=== PATIENT | male | born 1950 | race Caucasian/White ===

== ENCOUNTER → 2022-03-18 13:17 | Outpatient (BNVA) | payer MEDICARE, OTHER, SELFPAY | PROVIDERS: PCP Nurse Practitioner Family; Visit Provider Student in an Organized Health Care Education/Training Program | DX: Z13.89 Encounter for screening for other disorder (principal) ==

== ENCOUNTER → 2022-06-16 12:34 | Outpatient (BNVA) | payer MEDICARE, OTHER, SELFPAY | PROVIDERS: PCP Nurse Practitioner Family; Visit Provider Student in an Organized Health Care Education/Training Program | DX: M35.3 Polymyalgia rheumatica (principal); M85.80 Other specified disorders of bone density and structure, unspecified site; R31.9 Hematuria, unspecified; Z79.52 Long term (current) use of systemic steroids; Z79.83 Long term (current) use of bisphosphonates | CPT/HCPCS: 99202 ==

== ENCOUNTER 2022-09-23 09:53 | Outpatient (AMB) | payer MEDICARE, OTHER, SELFPAY ==
--- NOTE | 2022-09-23 10:00 | MHC.OFFVIS ---
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 Last visit patient was taking 6 mg of prednisone daily he tapered it down to 5 mg daily, tapering down by 1 mg per month. Beginning of July patient started to have tingling sensation in his fingers at night. He contacted the office and Dr. Stovall asked him to start taking 3 mg at night in addition to his 5 mg morning dose with resolution of his symptoms. Today patient has no complaints. He has not been referred to a urologist. Has not had any more instances of hematuria. Initial history: This is a 72-year-old male with PMR who presents as a new patient. His previous neuro psych sales specialist left the practice. Please see Dr. Ferro's notes below. Patient states that he is doing well overall. He has been having some pain and stiffness of his hands and wrists over the last 2-3 months. He generalized morning stiffness of his body lasting approximately 3 hours. He also feels that he has injured his knee recently but he is able to walk normally and his knees do not give out on him. Knees do not buckle. He states that he has had bilateral meniscal repair in his 40s. Patient is quite active Over the last few months he had rare episodes of terminal hematuria without burning with urination. He mentions that when he was evaluated by Dr. Tovar in March 2021 for knee pain he was told he might have RA. Per Dr. Maroun:? In May patient started to have flu-like symptoms, extreme fatigue for 2 weeks then he started having pain and stiffness in hips and shoulders.? No joint swelling.? He was initially treated with doxycycline which did not help.? He was later diagnosed with PMR and was started on prednisone 20 mg daily and he felt improvement right away.?? The took 20 mg for 10 days and it was decreased to 15 mg for 10 days and then 12.5 mg.? He is on this dose for 18 days.? He is also on Tylenol.?? No headaches, no jaw pain or vision change.?? He still has aches and pains in wrists, shoulders on arms.? Morning stiffness last few hours. No cancer in the family, no lupus.? Two cousins had psoriasis. [facility] Medical History Allergic rhinitis Essential hypertension Gallstones Impaired fasting glucose Mixed hyperlipidemia Osteopenia PMR (polymyalgia rheumatica) Skin hypopigmentation Surgical History H/O inguinal hernia repair History of arthroscopy of both knees Hx of appendectomy S/P cholecystectomy Family History Mother Myocardial infarct Scarlet fever Father Dementia Social History Household Members: Spouse Alcohol intake: current Alcohol intake frequency: a few times a week Alcohol type: beer Patient Tobacco Use Status: Never used Tobacco Current occupational status: retired and other Current occupation: [employer] Review of Systems Denies hematuria Musc Denies arthralgias, Denies joint swelling, Denies stiffness and Denies tingling Neuro Denies tingling Physical Exam Vital Signs: Last Vital Signs Temp 97.9 F 09/23/22 10:01 Pulse 77 09/23/22 10:01 Resp 16 09/23/22 10:01 BP 120/78 09/23/22 10:01 Pulse Ox 97 09/23/22 10:01 Oxygen Delivery Method Room Air 09/23/22 10:01 BMI result Body Mass Index 31.3 Const General: cooperative, healthy appearing and comfortable Nutritional Appearance: obese Orientation/consciousness: patient oriented x3 Limitations: no limitations HEENT Head: Yes normocephalic and Yes atraumatic Mouth: moist mucous membranes Resp Effort & Inspection: normal respiratory effort and able to speak in complete sentences Auscultation: clear to auscultation bilaterally Cardio Rate: regular rate Rhythm: regular rhythm GI Inspection: No distended Palpation (GI): Soft to palpation and nontender Neuro General: patient oriented x3 Extrem Other: Normal range of motion of both shoulders Deformity of right middle finger related to an injury years ago No swollen or tender wrists or pain with range of motion Negative MCP squeeze test bilaterally 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 No knee swelling or tenderness negative Rambo's test bilaterally Results Reviewed Results Reviewed: DEXA 10/2021? Lumbar spine T-score 2.1 Femoral neck T-score-1.4? Total hip T-score-1.3? 1/3 radius T-score minus 1.4? FRAX 9.7% for major osteoporotic fracture and 2.9% for hip fracture Labs 06/2021, Lyme/RF/CCP negative? ESR 42? CRP 77 (i think normal is <9) Free T4 normal Labs 09/2021? Immunofixation no monoclonal proteins detected SPEP showed increase in alpha 1 globulin MISAEL screen negative? CPK 60 (35-232) CMP unremarkable and? CRP 13.4 (I think normal is <9) ESR 12 WBC 15.88 CBC unremarkable otherwise Assessment & Plan Assessment & Plan (1) PMR (polymyalgia rheumatica): Comment: dx 06/2021 (fatigue, stiffness of shoulders and hips, high inflammatory markers) Prednisone started 06/2021. Started on 20 mg then reduced to 15 mg after 2 weeks. Code(s): M35.3 - Polymyalgia rheumatica Plan: This is a 72-year-old male with PMR who presents for follow-up. Patient's PMR flared when he reduced his prednisone to 5 mg daily, this resolved when he started a nightly dose of 3 mg. He is currently doing well on 8 mg of prednisone. Will reduce prednisone by 1 mg per month. In September start taking prednisone 7 mg daily 5 mg in the morning and 2 mg at night then reduce by 1 mg every month. Advised patient to call the office if he starts feeling that he has a flare as I would like to get blood work done when in a flare. Labs before next visit in 3 months (2) Hematuria: Code(s): R31.9 - Hematuria, unspecified Qualifiers: Hematuria type: gross Qualified Code(s): R31.0 - Gross hematuria Plan: Few episodes of terminal hematuria over the last few months. This seems to have self-resolved. I again urged patient to request referral to a urologist from his PCP. Patient states that he will do so. I also offered a referral to a urologist within the [facility] system and patient prefers to find a urologist next to home (3) History of ongoing treatment with alendronate: Code(s): Z79.83 - custodial (current) use of bisphosphonates Plan: DEXA 10/2021? Lumbar spine T-score 2.1 Femoral neck T-score-1.4? Total hip T-score-1.3? 1/3 radius T-score minus 1.4? FRAX 9.7% for major osteoporotic fracture and 2.9% for hip fracture Can stop Fosamax treatment now. Repeat DEXA next year. Plan I spent 27 minutes reviewing patient's chart, evaluating patient, ordering diagnostic workup, counseling patient and documenting in the chart Medications: New prednisone 5 mg PO DAILY 30 tabs 0RF Coding Level of Care Code Est Pt Level 4 (59369) Diagnoses PMR (polymyalgia rheumatica) M35.3 Hematuria R31.0 Hematuria type: gross History of ongoing treatment with alendronate Z79.83
[2022-09-23 10:01] VITALS: BP 120/78; PULSE 77; RESP 16; TEMP 36.6; O2SAT 97; BMI 31.3
== END 2022-09-23 10:52 | disposition home or self-care (01) ==
PROVIDERS: PCP Nurse Practitioner Family; Visit Provider Student in an Organized Health Care Education/Training Program
DX: M35.3 Polymyalgia rheumatica (principal); R31.0 Gross hematuria; Z79.83 Long term (current) use of bisphosphonates
CPT/HCPCS: 99214

== ENCOUNTER → 2022-09-23 09:53 | Outpatient (BNVA) | payer MEDICARE, OTHER, SELFPAY | PROVIDERS: PCP Nurse Practitioner Family; Visit Provider Student in an Organized Health Care Education/Training Program | DX: M35.3 Polymyalgia rheumatica (principal); R31.0 Gross hematuria; Z79.83 Long term (current) use of bisphosphonates | CPT/HCPCS: 99212 ==

== ENCOUNTER 2022-12-10 10:09 | Outpatient (AMB) | payer MEDICARE, OTHER, SELFPAY ==
--- NOTE | 2022-12-10 10:30 | MHC.OFFVIS ---
Intake Vital Signs 12/10/22 10:31 Height 5 ft 5 in Weight 185 lb 10.067 oz BMI 30.9 BP 122/80 Blood Pressure Location Rt brachial Position Sitting Pulse 82 Pulse Source Pulse Oximeter Temp 97.3 F Temp Source Skin Pulse Oximetry (%) 96 Intake Visit Reasons: PMR Intake Note: Pt presents today for PMR follow up and test results. Fosamax discontinued. Currently on 5mg of prednisone. Started on Tamsulosin by urologist. 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 Currently on 5 mg of prednisone, 3 mg in a.m. and 2 mg in the p.m.. Reducing by 1 mg a month. Doing well overall with no joint pain swelling or stiffness. States that about a month ago he was splitting wood, he has not split wood for long time and he felt electric shock-like sensation in the radial area of his right wrist. Since then he has been getting intermittent electric shock-like sensation in this area, usually in the morning when he pushes of with his right hand. Rarely bothers him. He was evaluated by urologist for his hematuria and was started on tamsulosin with improved urination, a CT scan was also ordered, done yesterday. Results pending Initial history: This is a 72-year-old male with PMR who presents as a new patient. 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 Please see Dr. Ferro's notes below. Patient states that he is doing well overall. He has been having some pain and stiffness of his hands and wrists over the last 2-3 months. He generalized morning stiffness of his body lasting approximately 3 hours. He also feels that he has injured his knee recently but he is able to walk normally and his knees do not give out on him. Knees do not buckle. He states that he has had bilateral meniscal repair in his 40s. Patient is quite active Over the last few months he had rare episodes of terminal hematuria without burning with urination. He mentions that when he was evaluated by Dr. Tovar in March 2021 for knee pain he was told he might have RA. Per Dr. Ferro:? In May patient started to have flu-like symptoms, extreme fatigue for 2 weeks then he started having pain and stiffness in hips and shoulders.? No joint swelling.? He was initially treated with doxycycline which did not help.? He was later diagnosed with PMR and was started on prednisone 20 mg daily and he felt improvement right away.?? The took 20 mg for 10 days and it was decreased to 15 mg for 10 days and then 12.5 mg.? He is on this dose for 18 days.? He is also on Tylenol.?? No headaches, no jaw pain or vision change.?? He still has aches and pains in wrists, shoulders on arms.? Morning stiffness last few hours. No cancer in the family, no lupus.? Two cousins had psoriasis. [facility] Medical History Osteopenia Impaired fasting glucose PMR (polymyalgia rheumatica) Skin hypopigmentation Gallstones Allergic rhinitis Essential hypertension Mixed hyperlipidemia Surgical History S/P cholecystectomy Hx of appendectomy History of arthroscopy of both knees H/O inguinal hernia repair Family History Mother Myocardial infarct Scarlet fever Father Dementia Social History Household Members: Spouse Alcohol intake: current Alcohol intake frequency: a few times a week Alcohol type: beer Patient Tobacco Use Status: Never used Tobacco Current occupational status: retired and other Current occupation: [employer] Review of Systems Denies hematuria Musc Denies arthralgias, Denies joint swelling and Denies stiffness Neuro Details: Electric shock-like sensation Physical Exam Vital Signs: Last Vital Signs Temp 97.3 F 12/10/22 10:31 Pulse 82 10/13/23 10:31 BP 122/80 12/10/22 10:31 Pulse Ox 96 12/10/22 10:31 BMI result Body Mass Index 30.9 Const General: cooperative, healthy appearing and comfortable Nutritional Appearance: obese Orientation/consciousness: patient oriented x3 Limitations: no limitations HEENT Head: Yes normocephalic and Yes atraumatic Mouth: moist mucous membranes Resp Effort & Inspection: normal respiratory effort and able to speak in complete sentences Auscultation: clear to auscultation bilaterally Cardio Rate: regular rate Rhythm: regular rhythm GI Inspection: No distended Palpation (GI): Soft to palpation and nontender Neuro General: patient oriented x3 Extrem Other: Normal range of motion of both shoulders Deformity of right middle finger related to an injury years ago No swollen or tender wrists or pain with range of motion Negative MCP squeeze test bilaterally 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 No knee swelling or tenderness negative Rambo's test bilaterally Results Reviewed Results Reviewed: DEXA 10/2021? Lumbar spine T-score 2.1 Femoral neck T-score-1.4? Total hip T-score-1.3? 1/3 radius T-score minus 1.4? FRAX 9.7% for major osteoporotic fracture and 2.9% for hip fracture Labs 06/2021, Lyme/RF/CCP negative? ESR 42? CRP 77 (i think normal is <9) Free T4 normal Labs 09/2021? Immunofixation no monoclonal proteins detected SPEP showed increase in alpha 1 globulin MISAEL screen negative? CPK 60 (35-232) CMP unremarkable and? CRP 13.4 (I think normal is <9) ESR 12 WBC 15.88 CBC unremarkable otherwise Assessment & Plan Assessment & Plan (1) PMR (polymyalgia rheumatica): Comment: dx 06/2021 (fatigue, stiffness of shoulders and hips, high inflammatory markers) Prednisone started 06/2021. Started on 20 mg then reduced to 15 mg after 2 weeks. 07/2022 PMR flared when he reduced his prednisone to 5 mg daily, this resolved with nightly dose of 3 mg Code(s): M35.3 - Polymyalgia rheumatica Plan: This is a 72-year-old male with PMR who presents for follow-up. Doing well with no no flare-ups on prednisone 3 mg in the morning and 2 mg at night. Tapering by 1 mg a month. Inflammatory markers are normal Reduce prednisone to 4 mg daily starting December, 3 mg in January Labs before next visit in 3 months (2) Hematuria: Code(s): R31.9 - Hematuria, unspecified Qualifiers: Hematuria type: gross Qualified Code(s): R31.0 - Gross hematuria Plan: Few episodes of terminal hematuria which have self-resolved. Patient was evaluated by a urologist and was started on tamsulosin with improved urination. CT scan was ordered by urologist. (3) History of ongoing treatment with alendronate: Code(s): Z79.83 - joint terminal attack controller (current) use of bisphosphonates Plan: DEXA 10/2021? Lumbar spine T-score 2.1 Femoral neck T-score-1.4? Total hip T-score-1.3? 1/3 radius T-score minus 1.4? FRAX 9.7% for major osteoporotic fracture and 2.9% for hip fracture Fosamax discontinued 08/2022 (4) Neuropathy: Code(s): G62.9 - Polyneuropathy, unspecified Plan: Electric shocks like sensation in the radial area of his right wrist since splitting wood a month ago. Since then gets intermittent episodes with pushing off with his right wrist. Minimally symptomatic. Negative Beatriz's test, Tinel test and CMC grind test. Can be an entrapment neuropathy. Can consider an EMG/NCV in the future if progressively symptomatic (5) Neutrophilia: Code(s): D72.9 - Disorder of white blood cells, unspecified Plan: Absolute neutrophilia with mild lymphopenia, can be a side effect of prednisone. Will continue to monitor patient's white count. If patient's white diet remains elevated despite lowering prednisone dose will consider referring him to heme/onc Plan I spent 46 minutes reviewing patient's chart, evaluating patient, ordering diagnostic workup, counseling patient and documenting in the chart Orders: Orders Complete Blood Count Auto Diff 3 Months M35.3 - Polymyalgia rheumatica Comprehensive Met. Panel 3 Months M35.3 - Polymyalgia rheumatica C Reactive Protein 3 Months M35.3 - Polymyalgia rheumatica Erythrocyte Sedimentation Rate 3 Months M35.3 - Polymyalgia rheumatica Medications: Changed From prednisone 3mg qam, 2mg qpm orally daily; To prednisone Take 5 tabs by mouth daily until the end of November then take 4 tabs daily for 1 month then 3 tabs daily for 1 month 295 tabs 0RF Coding Level of Care Code Est Pt Level 5 (66416) Diagnoses PMR (polymyalgia rheumatica) M35.3 Gross hematuria R31.0 Hematuria type: gross History of ongoing treatment with alendronate Z79.83 Neuropathy G62.9 Neutrophilia D72.9
[2022-12-10 10:31] VITALS: BP 122/80; PULSE 82; TEMP 36.3; O2SAT 96; BMI 30.9
== END 2022-12-10 11:05 | disposition home or self-care (01) ==
PROVIDERS: PCP Nurse Practitioner Family; Visit Provider Student in an Organized Health Care Education/Training Program
DX: M35.3 Polymyalgia rheumatica (principal); R31.0 Gross hematuria; Z79.83 Long term (current) use of bisphosphonates; G62.9 Polyneuropathy, unspecified; D72.9 Disorder of white blood cells, unspecified
CPT/HCPCS: 99215

== ENCOUNTER → 2022-12-10 10:09 | Outpatient (BNVA) | payer MEDICARE, OTHER, SELFPAY | PROVIDERS: PCP Nurse Practitioner Family; Visit Provider Student in an Organized Health Care Education/Training Program | DX: M35.3 Polymyalgia rheumatica (principal); R31.0 Gross hematuria; G62.9 Polyneuropathy, unspecified; D72.9 Disorder of white blood cells, unspecified; Z79.83 Long term (current) use of bisphosphonates | CPT/HCPCS: 99212 ==

== ENCOUNTER 2023-03-14 09:59 | Outpatient (AMB) | payer MEDICARE, OTHER, SELFPAY ==
--- NOTE | 2023-03-14 10:02 | A.OFFVIS_ITS ---
Intake Vital Signs 03/14/23 10:04 Height 5 ft 5 in Weight 185 lb 13.595 oz BMI 30.9 BP 106/62 Blood Pressure Location Rt brachial Position Sitting Pulse 82 Pulse Source Pulse Oximeter Temp 97 F Temp Source Skin Pulse Oximetry (%) 97 Oxygen Delivery Method Room Air Intake Visit Reasons: PMR Intake Note: Pt last seen 12/10/22 presents today for follow up and test results. Prednisone 2 mg qd was not tolerable, went back up to 3 mg qd. 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 Accompanied by: Self / Same As Patient Allergies No Known Allergies Allergy (Verified 12/10/22 10:34) Medication List - Last Reconciled 03/14/23 by Desiree Hernandez MD acetaminophen (Acetaminophen Extra Strength) 500 mg PO BID PRN finasteride 5 mg PO DAILY fluticasone propionate 50 mcg/actuation (Allergy Relief (fluticasone)) 1 spray intranasal BID hydrochlorothiazide 12.5 mg PO DAILY latanoprost 0.005% 1 drp ophthalmic (eye) QPM losartan 100 mg PO DAILY multivitamin 1 tab PO DAILY prednisone Take 3 tabs by mouth daily until the end of January then 2 tabs daily for 1 month simvastatin 40 mg PO DAILY tamsulosin 0.4 mg PO DAILY HPI HPI Comments History of Present Illness Details 73-year-old male with PMR returns for fo llow-up. Patient states that when he lowered prednisone from 3 mg daily to 2 mg daily started having pain and stiffness of his knees, some pain and stiffness of his right hand and some pain in the shoulders and ankles. He increased the prednisone dose to 3 mg daily with some improvement. He has also been taking Tylenol 2 tabs twice daily. This is giving him some relief. But he is not back to his normal. Initial history: This is a 72-year-old male with PMR who presents as a new patient. 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 Please see Dr. Ferro's notes below. Patient states that he is doing well overall. He has been having some pain and stiffness of his hands and wrists over the last 2-3 months. He generalized morning stiffness of his body lasting approximately 3 hours. He also feels that he has injured his knee recently but he is able to walk normally and his knees do not give out on him. Knees do not buckle. He states that he has had bilateral meniscal repair in his 40s. Patient is quite active Over the last few months he had rare episodes of terminal hematuria without burning with urination. He mentions that when he was evaluated by Dr. Tovar in March 2021 for knee pain he was told he might have RA. Per Dr. Ferro:? In May patient started to have flu-like symptoms, extreme fatigue for 2 weeks then he started having pain and stiffness in hips and shoulders.? No joint swelling.? He was initially treated with doxycycline which did not help.? He was later diagnosed with PMR and was started on prednisone 20 mg daily and he felt improvement right away.?? The took 20 mg for 10 days and it was decreased to 15 mg for 10 days and then 12.5 mg.? He is on this dose for 18 days.? He is also on Tylenol.?? No headaches, no jaw pain or vision change.?? He still has aches and pains in wrists, shoulders on arms.? Morning stiffness last few hours. No cancer in the family, no lupus.? Two cousins had psoriasis. [facility] Medical History (Updated 03/14/23 @ 11:34 by Desiree Hernandez MD) Glaucoma Osteopenia Impaired fasting glucose PMR (polymyalgia rheumatica) Skin hypopigmentation Gallstones Allergic rhinitis Essential hypertension Mixed hyperlipidemia Surgical History S/P cholecystectomy Hx of appendectomy History of arthroscopy of both knees H/O inguinal hernia repair Family History Mother Myocardial infarct Scarlet fever Father Dementia Social History Household Members: Spouse Alcohol intake: current Alcohol intake frequency: 3 or more drinks per day Alcohol type: beer Patient Tobacco Use Status: Never used Tobacco Current occupational status: retired and other Current [place]: [employer] [facility] [place] [facility] [place]ralgias, Reports limited range of motion and Reports stiffness Physical Exam Vital Signs: Last Vital Signs Temp 97 F 03/14/23 10:04 Pulse 82 03/14/23 10:04 BP 106/62 03/14/23 10:04 Pulse Ox 97 03/14/23 10:04 Oxygen Delivery Method Room Air 03/14/23 10:04 BMI result Body Mass Index 30.9 Const General: cooperative, healthy appearing and comfortable Nutritional Appearance: obese Orientation/consciousness: patient oriented x3 Limitations: no limitations HEENT Head: Yes normocephalic and Yes atraumatic Mouth: moist mucous membranes Resp Effort & Inspection: normal respiratory effort and able to speak in complete sentences Auscultation: clear to auscultation bilaterally Cardio Rate: regular rate Rhythm: regular rhythm GI Inspection: No distended Palpation (GI): Soft to palpation and nontender Neuro General: patient oriented x3 Extrem Other: Normal range of motion of both shoulders Mildly positive empty can test on the right Deformity of right middle finger related to an injury years ago Osteoarthritic changes of both hands with Heberden's and Richard's nodes 2nd through 5th MCP puffiness bilaterally Left 3rd and 4th PIP tenderness Left wrist pain with full flexion Negative Tinel sign bilaterally Negative Beatriz's test bilaterally Negative 1st CMC grind test bilaterally Bilateral knee pain with full flexion Results Reviewed Results Reviewed: DEXA 10/2021? Lumbar spine T-score 2.1 Femoral neck T-score-1.4? Total hip T-score-1.3? 1/3 radius T-score minus 1.4? FRAX 9.7% for major osteoporotic fracture and 2.9% for hip fracture Labs 06/2021, Lyme/RF/CCP negative? ESR 42? CRP 77 (i think normal is <9) Free T4 normal Labs 09/2021? Immunofixation no monoclonal proteins detected SPEP showed increase in alpha 1 globulin MISAEL screen negative? CPK 60 (35-232) CMP unremarkable and? CRP 13.4 (I think normal is <9) ESR 12 WBC 15.88 CBC unremarkable otherwise Assessment & Plan Assessment & Plan (1) PMR (polymyalgia rheumatica): Comment: dx 06/2021 (fatigue, stiffness of shoulders and hips, high inflammatory markers) Prednisone started 06/2021. Started on 20 mg then reduced to 15 mg after 2 weeks. 07/2022 PMR flared when he reduced his prednisone to 5 mg daily, this resolved with nightly dose of 3 mg Code(s): M35.3 - Polymyalgia rheumatica Plan: This is a 73-year-old male with PMR who presents for follow-up. When patient tapered his prednisone from 3 mg daily to 2 mg daily he started having multiple painful and stiff joints including hands, shoulders and knees. Upon evaluation today he has few swollen and tender joints. Involvement of small joints. CRP mildly elevated. He is showing some features of rheumatoid arthritis. Will need to start DMARDs. Discussed risks and benefits of hydroxychloroquine. Patient agreed to proceed. Will start hydroxychloroquine 200 mg Twice daily. Increase prednisone back to 5 mg daily (3 mg q.a.m. and 2 mg q.h.s.) for 1 month then 4 mg daily Labs before next visit in 3 months (2) Hematuria: Code(s): R31.9 - Hematuria, unspecified Qualifiers: Hematuria type: gross Qualified Code(s): R31.0 - Gross hematuria Plan: Few episodes of terminal hematuria which have self-resolved. 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 Lumbar spine T-score 2.1 Femoral neck T-score-1.4? Total hip T-score-1.3? 1/3 radius T-score minus 1.4? FRAX 9.7% for major osteoporotic fracture and 2.9% for hip fracture Fosamax discontinued 08/2022. Will continue to evaluate patient. If patient will be on long-term steroids, Fosamax might need to be restarted (4) Neutrophilia: Code(s): D72.9 - Disorder of white blood cells, unspecified Plan: Absolute neutrophilia with mild lymphopenia, can be a side effect of prednisone. It does seem to correlate with prednisone dosing. Will continue to monitor patient's white count. If patient's white diet remains elevated despite lowering prednisone dose will consider referring him to heme/onc Plan I spent 46 minutes reviewing patient's chart, evaluating patient, ordering diagnostic workup, counseling patient and documenting in the chart Orders: Orders Comprehensive Met. Panel 3 Months M35.3 - Polymyalgia rheumatica Erythrocyte Sedimentation Rate 3 Months M35.3 - Polymyalgia rheumatica Rheumatoid Factor 3 Months M06.9 - Rheumatoid arthritis, unspecified Hepatitis A,B,C Profile 3 Months Z11.59 - Encounter for screening for other viral diseases T Spot TB 3 Months Z11.7 - Encounter for testing for latent tuberculosis infection Complete Blood Count Auto Diff 3 Months M35.3 - Polymyalgia rheumatica C Reactive Protein 3 Months M35.3 - Polymyalgia rheumatica Cyclic Citrullinated Peptide 3 Months M05.20 - Rheumatoid vasculitis with rheumatoid arthritis of unspecified site Medications: New hydroxychloroquine 200 mg PO BID 60 tabs 2RF Changed From prednisone Take 3 tabs by mouth daily until the end of January then 2 tabs daily for 1 month 111 tabs 0RF To prednisone 3 tabs q.a.m. Two tabs q.h.s. 300 tabs 1RF Coding Level of Care Code Est Pt Level 5 (22075) Diagnoses PMR (polymyalgia rheumatica) M35.3 Gross hematuria R31.0 Hematuria type: gross History of ongoing treatment with alendronate Z79.83 Neutrophilia D72.9
[2023-03-14 10:04] VITALS: BP 106/62; PULSE 82; TEMP 36.1; O2SAT 97; BMI 30.9
== END 2023-03-14 10:49 | disposition home or self-care (01) ==
PROVIDERS: PCP Nurse Practitioner Family; Visit Provider Student in an Organized Health Care Education/Training Program
DX: M35.3 Polymyalgia rheumatica (principal); R31.0 Gross hematuria; Z79.83 Long term (current) use of bisphosphonates; D72.9 Disorder of white blood cells, unspecified
CPT/HCPCS: 99215

== ENCOUNTER → 2023-03-14 09:59 | Outpatient (BNVA) | payer MEDICARE, OTHER, SELFPAY | PROVIDERS: PCP Nurse Practitioner Family; Visit Provider Student in an Organized Health Care Education/Training Program | DX: M35.3 Polymyalgia rheumatica (principal); R31.0 Gross hematuria; D72.9 Disorder of white blood cells, unspecified; Z79.83 Long term (current) use of bisphosphonates | CPT/HCPCS: 99212 ==

== ENCOUNTER 2023-06-16 09:36 | Outpatient (AMB) | payer MEDICARE, OTHER, SELFPAY ==
[2023-06-16 09:56] VITALS: BP 116/58; PULSE 79; O2SAT 96; BMI 30.2
--- NOTE | 2023-06-16 09:56 | A.OFFVIS_ITS ---
Intake Vital Signs 06/16/23 09:56 Height 5 ft 5 in Weight 181 lb 3.52 oz BMI 30.2 BP 116/58 L Blood Pressure Location Rt brachial Position Sitting Pulse 79 Pulse Source Pulse Oximeter Pulse Oximetry (%) 96 Oxygen Delivery Method Room Air Intake Visit Reasons: PMR/RA Intake Note: Patient last seen 02/14/23 presents today for follow up and test results. Reports neuropathy R hand tingling and numbing while holding newspaper, and at night while sleeping. Reports more flexibility in knees, occasional pain. Scientific Associate Required: No Accompanied by: Self / Same As Patient Allergies No Known Allergies Allergy (Verified 06/16/23 09:57) Medication List - Last Reconciled 06/16/23 by Desiree Hernandez MD acetaminophen (Acetaminophen Extra Strength) 500 mg PO BID PRN finasteride 5 mg PO DAILY fluticasone propionate 50 mcg/actuation (Allergy Relief (fluticasone)) 1 spray intranasal BID hydrochlorothiazide 12.5 mg PO DAILY hydroxychloroquine 200 mg PO BID latanoprost 0.005% 1 drp ophthalmic (eye) QPM losartan 100 mg PO DAILY multivitamin 1 tab PO DAILY prednisone Two tabs q.a.m. Two tabs q.h.s. simvastatin 40 mg PO DAILY tamsulosin 0.4 mg PO DAILY [wrist splint Wear nightly and as much as possible throughout the day] HPI HPI Comments History of Present Illness Details 73-year-old male with PMR returns for fo llow-up. Started hydroxychloroquine 200 mg Twice daily last visit. States that he feels less stiffness of his knees, continues to have bilateral knee pain, more significant right knee medially. States that he had bilateral meniscal repair in his 40s. Gets tingling of his right hand when holding a newspaper and sometimes at night. He has noticed increased fatigue recently. Initial history: This is a 72-year-old male with PMR who presents as a new patient. 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 Please see Dr. Ferro's notes below. Patient states that he is doing well overall. He has been having some pain and stiffness of his hands and wrists over the last 2-3 months. He generalized morning stiffness of his body lasting approximately 3 hours. He also feels that he has injured his knee recently but he is able to walk normally and his knees do not give out on him. Knees do not buckle. He states that he has had bilateral meniscal repair in his 40s. Patient is quite active Over the last few months he had rare episodes of terminal hematuria without burning with urination. He mentions that when he was evaluated by Dr. Tovar in March 2021 for knee pain he was told he might have RA. Per Dr. Ferro:? In May patient started to have flu-like symptoms, extreme fatigue for 2 weeks then he started having pain and stiffness in hips and shoulders.? No joint swelling.? He was initially treated with doxycycline which did not help.? He was later diagnosed with PMR and was started on prednisone 20 mg daily and he felt improvement right away.?? The took 20 mg for 10 days and it was decreased to 15 mg for 10 days and then 12.5 mg.? He is on this dose for 18 days.? He is also on Tylenol.?? No headaches, no jaw pain or vision change.?? He still has aches and pains in wrists, shoulders on arms.? Morning stiffness last few hours. No cancer in the family, no lupus.? Two cousins had psoriasis. [facility] Medical History Glaucoma Osteopenia Impaired fasting glucose PMR (polymyalgia rheumatica) Skin hypopigmentation Gallstones Allergic rhinitis Essential hypertension Mixed hyperlipidemia Surgical History S/P cholecystectomy Hx of appendectomy History of arthroscopy of both knees H/O inguinal hernia repair Family History Mother Myocardial infarct Scarlet fever Father Dementia Social History Household Members: Spouse Alcohol intake: current Alcohol intake frequency: 3 or more drinks per day Alcohol type: beer Patient Tobacco Use Status: Never used Tobacco Current occupational status: retired and other Current occupation: [employer] Systems Const Reports fatigue, Reports lethargy and Denies weight gain Musc Reports arthralgias, Denies joint swelling, Reports numbness, Denies stiffness and Reports tingling Neuro Reports numbness and Reports tingling Endo Reports fatigue Physical Exam Vital Signs: Last Vital Signs Pulse 79 06/16/23 09:56 BP 116/58 L 06/16/23 09:56 Pulse Ox 96 06/16/23 09:56 Oxygen Delivery Method Room Air 06/16/23 09:56 BMI result Body Mass Index 30.2 Const General: cooperative, healthy appearing and comfortable Nutritional Appearance: obese Orientation/consciousness: patient oriented x3 Limitations: no limitations HEENT Head: Yes normocephalic and Yes atraumatic Mouth: moist mucous membranes Resp Effort & Inspection: normal respiratory effort and able to speak in complete sentences Auscultation: clear to auscultation bilaterally Cardio Rate: regular rate Rhythm: regular rhythm GI Inspection: No distended Palpation (GI): Soft to palpation and nontender Neuro General: patient oriented x3 Extrem Other: Normal range of motion of both shoulders Deformity of right middle finger related to an injury years ago Osteoarthritic changes of both hands with Heberden's and Richard's nodes 2nd through 5th MCP puffiness bilaterally but no tenderness No PIP tenderness bilaterally No wrist pain with flexion and extension bilaterally Negative Tinel sign bilaterally Negative Beatriz's test bilaterally Negative 1st CMC grind test bilaterally No knee swelling bilaterally Left knee crepitus Results Reviewed Results Reviewed: DEXA 10/2021? Lumbar spine T-score 2.1 Femoral neck T-score-1.4? Total hip T-score-1.3? 1/3 radius T-score minus 1.4? FRAX 9.7% for major osteoporotic fracture and 2.9% for hip fracture Labs 06/2021, Lyme/RF/CCP negative? ESR 42? CRP 77 (i think normal is <9) Free T4 normal Labs 09/2021? Immunofixation no monoclonal proteins detected SPEP showed increase in alpha 1 globulin MISAEL screen negative? CPK 60 (35-232) CMP unremarkable and? CRP 13.4 (I think normal is <9) ESR 12 WBC 15.88 CBC unremarkable otherwise Assessment & Plan Assessment & Plan (1) PMR (polymyalgia rheumatica): Comment: dx 06/2021 (fatigue, stiffness of shoulders and hips, high inflammatory markers) Prednisone started 06/2021. Started on 20 mg then reduced to 15 mg after 2 weeks. 07/2022 PMR flared when he reduced his prednisone to 5 mg daily, this resolved with nightly dose of 3 mg HCQ started 02/2023 effective Code(s): M35.3 - Polymyalgia rheumatica Plan: This is a 73-year-old male with PMR who presents for follow-up. On hydroxychloroquine 200 mg Twice daily and prednisone 4 mg daily. Doing much better overall with improved stiffness. 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 Lumbar spine T-score 2.1 Femoral neck T-score-1.4? Total hip T-score-1.3? 1/3 radius T-score minus 1.4? FRAX 9.7% for major osteoporotic fracture and 2.9% for hip fracture Fosamax discontinued 08/2022. Will continue to evaluate patient. Patient on very small dose of steroids. If he will need to be on higher steroid dose for prolonged periods of time, will consider restarting Fosamax (3) Neutrophilia: Code(s): D72.9 - Disorder of white blood cells, unspecified Plan: Mild Absolute neutrophilia with mild lymphopenia, can be a side effect of prednisone. It does seem to correlate with prednisone dosing. Will continue to monitor patient's white count. If patient's white diet remains elevated despite lowering prednisone dose will consider referring him to heme/onc (4) Right carpal tunnel syndrome: Code(s): G56.01 - Carpal tunnel syndrome, right upper limb Plan: Discussed wrist splint versus checking EMG/NCV. Will start with a right wrist splint (5) Fatigue: Code(s): R53.83 - Other fatigue Qualifiers: Fatigue type: chronic, unspecified Qualified Code(s): R53.82 - Chronic fatigue, unspecified Plan: Not likely related to his underlying autoimmune disease. It is well controlled. Discuss with PCP Plan I spent 46 minutes reviewing patient's chart, evaluating patient, ordering diagnostic workup, counseling patient and documenting in the chart Orders: Orders Complete Blood Count Auto Diff 4 Months M3.3 - Polymyalgia rheumatica Erythrocyte Sedimentation Rate 4 Months M35.3 - Polymyalgia rheumatica Comprehensive Met. Panel 4 Months M35.3 - Polymyalgia rheumatica C Reactive Protein 4 Months M35.3 - Polymyalgia rheumatica Medications: New [wrist splint] Wear nightly and as much as possible throughout the day 1 ea 0RF G56.01 - Carpal tunnel syndrome, right upper limb Coding Level of Care Code Est Pt Level 5 (53204) Diagnoses PMR (polymyalgia rheumatica) M35.3 History of ongoing treatment with alendronate Z79.83 Neutrophilia D72.9 Right carpal tunnel syndrome G56.01 Chronic fatigue R53.82 Fatigue type: chronic, unspecified
== END 2023-06-16 10:32 | disposition home or self-care (01) ==
PROVIDERS: PCP Nurse Practitioner Family; Visit Provider Student in an Organized Health Care Education/Training Program
DX: M35.3 Polymyalgia rheumatica (principal); Z79.83 Long term (current) use of bisphosphonates; D72.9 Disorder of white blood cells, unspecified; G56.01 Carpal tunnel syndrome, right upper limb; R53.82 Chronic fatigue, unspecified
CPT/HCPCS: 99215

== ENCOUNTER → 2023-06-16 09:36 | Outpatient (BNVA) | payer MEDICARE, OTHER, SELFPAY | PROVIDERS: PCP Nurse Practitioner Family; Visit Provider Student in an Organized Health Care Education/Training Program | DX: M35.3 Polymyalgia rheumatica (principal); G56.01 Carpal tunnel syndrome, right upper limb; M85.80 Other specified disorders of bone density and structure, unspecified site; R53.82 Chronic fatigue, unspecified; D72.9 Disorder of white blood cells, unspecified; Z79.52 Long term (current) use of systemic steroids; Z79.83 Long term (current) use of bisphosphonates; Z79.899 Other long term (current) drug therapy | CPT/HCPCS: 99212 ==

== ENCOUNTER 2023-10-12 09:31 | Outpatient (AMB) | payer MEDICARE, OTHER, SELFPAY ==
[2023-10-12 09:35] VITALS: BP 118/62; PULSE 76; O2SAT 97; BMI 29.2
--- NOTE | 2023-10-12 09:35 | A.OFFVIS_ITS ---
Vital Signs 10/12/23 09:35 Height 5 ft 5 in Weight 175 lb 4.28 oz BMI 29.2 BP 118/62 Blood Pressure Location Lt brachial Position Sitting Pulse 76 Pulse Source Pulse Oximeter Pulse Oximetry (%) 97 Oxygen Delivery Method Room Air Intake Visit Reasons: RA/PMR/confirmed Intake Note: Patient presents today for follow up on RA/PMR and lab review. Allergies No Known Allergies Allergy (Verified 10/12/23 09:38) Medication List - Last Reconciled 10/12/23 by Desiree Hernandez MD acetaminophen (Acetaminophen Extra Strength) 500 mg PO BID PRN finasteride 5 mg PO DAILY fluticasone propionate 50 mcg/actuation (Allergy Relief (fluticasone)) 1 spray intranasal BID hydrochlorothiazide 12.5 mg PO DAILY hydroxychloroquine 200 mg PO BID latanoprost 0.005% 1 drp ophthalmic (eye) QPM losartan 100 mg PO DAILY multivitamin 1 tab PO DAILY prednisone Two tabs q.a.m. Two tabs q.h.s. simvastatin 40 mg PO DAILY tamsulosin 0.4 mg PO DAILY [wrist splint Wear nightly and as much as possible throughout the day] HPI Comments Details: 73-year-old male with PMR/seronegative RA returns for follow-up. She is on hydroxychloroquine 200 mg Twice daily and prednisone 1 mg daily. Has been on prednisone 1 mg daily for the last 2 months. He states that his overall stiffness and joint pain is significantly improved except for his lateral knee pain, worse on the right which is worsening, pain and weakness with activity especially with going up and down the stairs. Initial history: This is a 72-year-old male with PMR who presents as a new patient. 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 Please see Dr. Ferro's notes below. Patient states that he is doing well overall. He has been having some pain and stiffness of his hands and wrists over the last 2-3 months. He generalized morning stiffness of his body lasting approximately 3 hours. He also feels that he has injured his knee recently but he is able to walk normally and his knees do not give out on him. Knees do not buckle. He states that he has had bilateral meniscal repair in his 40s. Patient is quite active Over the last few months he had rare episodes of terminal hematuria without burning with urination. He mentions that when he was evaluated by Dr. Tovar in March 2021 for knee pain he was told he might have RA. Per Dr. Ferro:? In May patient started to have flu-like symptoms, extreme fatigue for 2 weeks then he started having pain and stiffness in hips and shoulders.? No joint swelling.? He was initially treated with doxycycline which did not help.? He was later diagnosed with PMR and was started on prednisone 20 mg daily and he felt improvement right away.?? The took 20 mg for 10 days and it was decreased to 15 mg for 10 days and then 12.5 mg.? He is on this dose for 18 days.? He is also on Tylenol.?? No headaches, no jaw pain or vision change.?? He still has aches and pains in wrists, shoulders on arms.? Morning stiffness last few hours. No cancer in the family, no lupus.? Two cousins had psoriasis. [facility] Medical History Glaucoma Osteopenia Impaired fasting glucose PMR (polymyalgia rheumatica) Skin hypopigmentation Gallstones Allergic rhinitis Essential hypertension Mixed hyperlipidemia Surgical History S/P cholecystectomy Hx of appendectomy History of arthroscopy of both knees H/O inguinal hernia repair Family History Mother Myocardial infarct Scarlet fever Father Dementia Social History Household Members: Spouse Alcohol intake: current Alcohol intake frequency: 3 or more drinks per day Alcohol type: beer Patient Tobacco Use Status: Never used Tobacco Current occupational status: retired and other Current occupation: [employer] Review of Systems [facility] [place] Reports arthralgias, Denies joint swelling, Reports limited range of motion and Reports stiffness Physical Exam Vital Signs: Last Vital Signs Pulse 76 10/12/23 09:35 BP 118/62 10/12/23 09:35 Pulse Ox 97 10/12/23 09:35 Oxygen Delivery Method Room Air 10/12/23 09:35 BMI result Body Mass Index 29.2 Const General: cooperative, healthy appearing and comfortable Nutritional Appearance: obese Orientation/consciousness: patient oriented x3 Limitations: no limitations HEENT Head: Yes normocephalic and Yes atraumatic Mouth: moist mucous membranes Resp Effort & Inspection: normal respiratory effort and able to speak in complete sentences Auscultation: clear to auscultation bilaterally Cardio Rate: regular rate Rhythm: regular rhythm GI Inspection: No distended Palpation (GI): Soft to palpation and nontender Neuro General: patient oriented x3 Extrem Other: Normal range of motion of both shoulders Deformity of right middle finger related to an injury years ago Osteoarthritic changes of both hands with Heberden's and Richard's nodes No active synovitis both hands and wrists today Bilateral knee crepitus, right knee pain with flexion and extension, no swelling or warmth Negative Tinel sign bilaterally Negative Beatriz's test bilaterally Negative 1st CMC grind test bilaterally No knee swelling bilaterally Office Procedures Joint Injection/Aspiration Joint Injection/Aspiration Primary Site: right knee Prep: site was prepped using sterile technique and ethochloride spray was applied Injected: 40 mg of, Kenalog, with 1 mL of, 1% plain lidocaine and in the joint Approach Used: medial parapatellar Procedure: The patient tolerated the procedure well Coding Details: With the patient's consent the right knee was prepped with ChloraPrep and alcohol. The skin was anesthetized with 2 cc of 1% lidocaine. The knee was then injected with 40 mg of triamcinolone and 1 cc of I % lidocaine. The patient tolerated the procedure with no immediate adverse effects. - Large joint Procedure code (CPT) selection complete Results Reviewed Results Reviewed: DEXA 10/2021? Lumbar spine T-score 2.1 Femoral neck T-score-1.4? Total hip T-score-1.3? 1/3 radius T-score minus 1.4? FRAX 9.7% for major osteoporotic fracture and 2.9% for hip fracture Labs 06/2021, Lyme/RF/CCP negative? ESR 42? CRP 77 (i think normal is <9) Free T4 normal Labs 09/2021? Immunofixation no monoclonal proteins detected SPEP showed increase in alpha 1 globulin MISAEL screen negative? CPK 60 (35-232) CMP unremarkable and? CRP 13.4 (I think normal is <9) ESR 12 WBC 15.88 CBC unremarkable otherwise Assessment & Plan Assessment & Plan (1) PMR (polymyalgia rheumatica): Comment: dx 06/2021 (fatigue, stiffness of shoulders and hips, high inflammatory markers) Prednisone started 06/2021. Started on 20 mg then reduced to 15 mg after 2 weeks. 07/2022 PMR flared when he reduced his prednisone to 5 mg daily, this resolved with nightly dose of 3 mg HCQ started 02/2023 effective Code(s): M35.3 - Polymyalgia rheumatica Category: Medical Plan: This is a 73-year-old male with PMR/seronegative RA who presents for follow-up. On hydroxychloroquine 200 mg Twice daily and prednisone 1 mg daily. Doing much better overall with improved stiffness. 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 Lumbar spine T-score 2.1 Femoral neck T-score-1.4? Total hip T-score-1.3? 1/3 radius T-score minus 1.4? FRAX 9.7% for major osteoporotic fracture and 2.9% for hip fracture Fosamax discontinued 08/2022. Since patient is off prednisone, Fosamax does not need to be restarted (3) Neutrophilia: Code(s): D72.9 - Disorder of white blood cells, unspecified Category: Medical Plan: Mild Absolute neutrophilia with mild lymphopenia, can be a side effect of prednisone. It does seem to correlate with prednisone dosing. Will continue to monitor patient's white count. If patient's white diet remains elevated despite lowering prednisone dose will consider referring him to heme/onc (4) Right carpal tunnel syndrome: Code(s): G56.01 - Carpal tunnel syndrome, right upper limb Category: Medical Plan: Symptoms improved with wrist splints. Not interested in EMG/NCV (5) Bilateral primary osteoarthritis of knee: Code(s): M17.0 - Bilateral primary osteoarthritis of knee Category: Medical Plan: More symptomatic on the right. Discussed steroid injections. With patient's consent, right knee was injected with Kenalog today Plan I spent 46 minutes reviewing patient's chart, evaluating patient, ordering diagnostic workup, counseling patient and documenting in the chart Orders: Orders Complete Blood Count Auto Diff 4 Months M35.3 - Polymyalgia rheumatica C Reactive Protein 4 Months M35.3 - Polymyalgia rheumatica AMB Joint Injection/Aspiration Today M17.0 - Bilateral primary osteoarthritis of knee Comprehensive Met. Panel 4 Months M35.3 - Polymyalgia rheumatica Erythrocyte Sedimentation Rate 4 Months M35.3 - Polymyalgia rheumatica Coding Level of Care Code Est Pt Level 5 (49543) Diagnoses PMR (polymyalgia rheumatica) M35.3 History of ongoing treatment with alendronate Z79.83 Neutrophilia D72.9 Right carpal tunnel syndrome G56.01 Bilateral primary osteoarthritis of knee M17.0 CPT Codes Coding - 03916 Large joint: 09487 - Large joint ([id number])
== END 2023-10-12 10:17 | disposition home or self-care (01) ==
PROVIDERS: PCP Nurse Practitioner Family; Visit Provider Student in an Organized Health Care Education/Training Program
DX: M35.3 Polymyalgia rheumatica (principal); Z79.83 Long term (current) use of bisphosphonates; D72.9 Disorder of white blood cells, unspecified; G56.01 Carpal tunnel syndrome, right upper limb; M17.0 Bilateral primary osteoarthritis of knee
CPT/HCPCS: 20610; 99215

== ENCOUNTER 2023-10-12 10:22 | Outpatient (REF) | payer MEDICARE, OTHER, SELFPAY ==
[2023-10-12 13:21] LABS: MANUAL DIFF FLAG NO
[2023-10-12 13:49] LABS: Basophils Absolute Auto 0.1 X10*3/uL (0.0-0.2); Basophils Percent Auto 0.6 % (0-2); Eosinophils Absolute Auto 0.2 X10*3/uL (0.0-0.4); Eosinophils Percent Auto 1.7 % (0-4); Hematocrit 45.8 % (42.0-52.0); Hemoglobin 15.7 g/dl (14.0-18.0); Imm Gran Pct Auto 0.8 % (0.0-0.4); Lymphocytes Absolute Auto 1.5 X10*3/uL (1.2-4.9); Lymphocytes Percent Auto 12.2 % (20-40); Mean Corpuscular HGB Conc 34.3 g/dl (31.0-36.0); Mean Corpuscular Hemoglobin 30.3 pg (27.0-33.0); Mean Corpuscular Volume 88.4 fL (80.0-98.0); Monocytes Absolute Auto 1.4 X10*3/uL (0.1-1.2); Monocytes Percent Auto 10.9 % (2-11); Neutrophils Absolute Auto 9.2 x10*3/uL (2.0-8.3); Neutrophils Percent Auto 73.8 % (45-73); Platelet Count 292 X10*3/uL (160-400); Red Blood Count 5.18 X10*6/uL (4.60-5.80); Red Cell Distribution Width 12.6 % (11.0-16.0); White Blood Count 12.5 X10*3/uL (4.8-10.8)
[2023-10-12 13:52] LABS: Alanine Aminotransferase 17 U/L (0-40); Albumin Level 4.4 g/dL (3.5-5.0); Alkaline Phosphatase 74 U/L (39-117); Anion Gap 12 (12-20); Aspartate Amino Transferase 19 U/L (5-37); Bilirubin Total 0.7 mg/dL (0.0-1.0); Blood Urea Nitrogen 16 mg/dL (9-16); Calcium 9.3 mg/dL (8.4-10.2); Carbon Dioxide 29 mmol/L (22-29); Chloride 102 mmol/L (96-108); Estimated Glomerular Filt Rate > 60; Glucose Random 97 mg/dL (60-115); Potassium 4.7 mmol/L (3.3-5.1); Sodium 138 mmol/L (135-145); Total Protein 7.3 g/dL (6.5-8.0)
[2023-10-12 14:26] LABS: Erythrocyte Sedimentation Rate 4 MM/HR (0-15)
== END 2023-10-12 10:23 | disposition home or self-care (01) ==
LOC: HO.10HDL 10:22
PROVIDERS: Visit Provider Student in an Organized Health Care Education/Training Program
DX: M35.3 Polymyalgia rheumatica (principal); M17.0 Bilateral primary osteoarthritis of knee; D72.9 Disorder of white blood cells, unspecified; G56.01 Carpal tunnel syndrome, right upper limb; Z79.83 Long term (current) use of bisphosphonates
CPT/HCPCS: 20610; 36415; 80053; 85025; 85652; 99212

== ENCOUNTER 2024-02-13 10:27 | Outpatient (AMB) | payer MEDICARE, OTHER, SELFPAY ==
--- NOTE | 2024-02-13 10:40 | A.OFFVIS_ITS ---
Vital Signs 02/13/24 10:44 Height 5 ft 5 in Weight 176 lb 9.444 oz BMI 29.4 BP 122/74 Blood Pressure Location Lt brachial Position Sitting Pulse 78 Pulse Source Pulse Oximeter Pulse Oximetry (%) 98 Oxygen Delivery Method Room Air Intake Visit Reasons: RA Intake Note: Patient presents for RA. Allergies No Known Allergies Allergy (Verified 02/13/24 10:44) Medication List - Last Reconciled 02/13/24 by Desiree Hernandez MD acetaminophen (Acetaminophen Extra Strength) 500 mg PO BID PRN finasteride 5 mg PO DAILY fluticasone propionate 50 mcg/actuation (Allergy Relief (fluticasone)) 1 spray intranasal BID hydrochlorothiazide 12.5 mg PO DAILY hydroxychloroquine 200 mg PO BID latanoprost 0.005% 1 drp ophthalmic (eye) QPM losartan 100 mg PO DAILY multivitamin 1 tab PO DAILY simvastatin 40 mg PO DAILY tamsulosin 0.4 mg PO DAILY [wrist splint Wear nightly and as much as possible throughout the day] HPI Comments Details: 74-year-old male with PMR/seronegative RA returns for follow-up. He is on hydroxychloroquine 200 mg Twice daily, prednisone was tapered off last visit. S tates that his arthritis has not been doing well recently. Especially his knees. He also has stiffness and swelling of his hands lasting for 2 hours in the morning. She takes ibuprofen 400 mg Twice daily with relief, Tylenol provides very minimal relief. He has also noticed worsening tingling, numbness of his right hand, he was evaluated by his PCP and referred to a neurologist. Right knee injection done last visit helped for only one-month but he has been quite active at that time. Initial history: This is a 72-year-old male with PMR who presents as a new patient. 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 Please see Dr. Ferro's notes below. Patient states that he is doing well overall. He has been having some pain and stiffness of his hands and wrists over the last 2-3 months. He generalized morning stiffness of his body lasting approximately 3 hours. He also feels that he has injured his knee recently but he is able to walk normally and his knees do not give out on him. Knees do not buckle. He states that he has had bilateral meniscal repair in his 40s. Patient is quite active Over the last few months he had rare episodes of terminal hematuria without burning with urination. He mentions that when he was evaluated by Dr. Tovar in March 2021 for knee pain he was told he might have RA. Per Dr. Ferro:? In May patient started to have flu-like symptoms, extreme fatigue for 2 weeks then he started having pain and stiffness in hips and shoulders.? No joint swelling.? He was initially treated with doxycycline which did not help.? He was later diagnosed with PMR and was started on prednisone 20 mg daily and he felt improvement right away.?? The took 20 mg for 10 days and it was decreased to 15 mg for 10 days and then 12.5 mg.? He is on this dose for 18 days.? He is also on Tylenol.?? No headaches, no jaw pain or vision change.?? He still has aches and pains in wrists, shoulders on arms.? Morning stiffness last few hours. No cancer in the family, no lupus.? Two cousins had psoriasis. [facility] Medical History Glaucoma Osteopenia Impaired fasting glucose PMR (polymyalgia rheumatica) Skin hypopigmentation Gallstones Allergic rhinitis Essential hypertension Mixed hyperlipidemia Surgical History S/P cholecystectomy Hx of appendectomy History of arthroscopy of both knees H/O inguinal hernia repair Family History Mother Myocardial infarct Scarlet fever Father Dementia Social History Household Members: Spouse Alcohol intake: current Alcohol intake frequency: 3 or more drinks per day Alcohol type: beer Patient Tobacco Use Status: Never used Tobacco Current occupational status: retired and other Current occupation: [employer] Review of Systems [place] Reports arthralgias, Reports joint swelling, Reports numbness, Reports stiffness and Reports tingling Neuro Reports numbness and Reports tingling Physical Exam Vital Signs: Last Vital Signs Pulse 78 02/13/24 10:44 BP 122/74 02/13/24 10:44 Pulse Ox 98 02/13/24 10:44 Oxygen Delivery Method Room Air 02/13/24 10:44 BMI result Body Mass Index 29.4 Const General: cooperative, healthy appearing and comfortable Nutritional Appearance: obese Orientation/consciousness: patient oriented x3 Limitations: no limitations HEENT Head: Yes normocephalic and Yes atraumatic Mouth: moist mucous membranes Resp Effort & Inspection: normal respiratory effort and able to speak in complete sentences Auscultation: clear to auscultation bilaterally Cardio Rate: regular rate Rhythm: regular rhythm GI Inspection: No distended Palpation (GI): Soft to palpation and nontender Neuro General: patient oriented x3 Extrem Other: Normal range of motion of both shoulders Deformity of right middle finger related to an injury years ago Osteoarthritic changes of both hands with Heberden's and Richard's nodes No active synovitis both hands and wrists today Bilateral knee crepitus, right knee pain with flexion and extension, no swelling or warmth Negative Beatriz's test bilaterally Negative 1st CMC grind test bilaterally No knee swelling bilaterally Assessment & Plan Assessment & Plan (1) PMR (polymyalgia rheumatica): Comment: dx 06/2021 (fatigue, stiffness of shoulders and hips, high inflammatory markers) Prednisone started 06/2021. Started on 20 mg then reduced to 15 mg after 2 weeks. 07/2022 PMR flared when he reduced his prednisone to 5 mg daily, this resolved with nightly dose of 3 mg. PDN tapered off 09/2023 HCQ started 02/2023 effective Code(s): M35.3 - Polymyalgia rheumatica Category: Medical Plan: This is a 74-year-old male with PMR/seronegative RA who presents for follow-up. On hydroxychloroquine 200 mg Twice daily On exam today patient is doing well with no active synovitis. His symptoms are related to degenerative arthritis. Inflammatory markers are normal Continue with hydroxychloroquine 20 mg Twice daily Labs before next visit in 6 months (2) Neutrophilia: Code(s): D72.9 - Disorder of white blood cells, unspecified Category: Medical Plan: Mild Absolute neutrophilia will continue to monitor. If gets significantly elevated, can consider referral to heme/Onc (3) Right carpal tunnel syndrome: Code(s): G56.01 - Carpal tunnel syndrome, right upper limb Category: Medical Plan: EMG/NCV ordered (4) Bilateral primary osteoarthritis of knee: Code(s): M17.0 - Bilateral primary osteoarthritis of knee Category: Medical Plan: Right knee was injected 09/2023, per patient it helped for one-month, now becoming symptomatic again, advised patient to seek evaluation by Orthopedics Discussed with patient, use ibuprofen sparingly, try Voltaren gel and turmeric Plan I spent 26 minutes reviewing patient's chart, evaluating patient, ordering diagnostic workup, counseling patient and documenting in the chart Orders: Orders NE electromyogram (EMG) Today R20.0 - Anesthesia of skin Erythrocyte Sedimentation Rate 6 Months M35.3 - Polymyalgia rheumatica Complete Blood Count Auto Diff 6 Months M35.3 - Polymyalgia rheumatica Comprehensive Met. Panel 6 Months M35.3 - Polymyalgia rheumatica C Reactive Protein 6 Months M35.3 - Polymyalgia rheumatica Medications: Refilled hydroxychloroquine 200 mg PO BID 180 tabs 1RF Coding Level of Care Code Est Pt Level 4 (33802) Diagnoses PMR (polymyalgia rheumatica) M35.3 Neutrophilia D72.9 Right carpal tunnel syndrome G56.01 Bilateral primary osteoarthritis of knee M17.0
[2024-02-13 10:44] VITALS: BP 122/74; PULSE 78; O2SAT 98; BMI 29.4
== END 2024-02-13 11:22 | disposition home or self-care (01) ==
PROVIDERS: PCP Nurse Practitioner Family; Visit Provider Student in an Organized Health Care Education/Training Program
DX: M35.3 Polymyalgia rheumatica (principal); D72.9 Disorder of white blood cells, unspecified; G56.01 Carpal tunnel syndrome, right upper limb; M17.0 Bilateral primary osteoarthritis of knee
CPT/HCPCS: 99214

== ENCOUNTER → 2024-02-13 10:27 | Outpatient (BNVA) | payer MEDICARE, OTHER, SELFPAY | PROVIDERS: PCP Nurse Practitioner Family; Visit Provider Student in an Organized Health Care Education/Training Program | DX: M35.3 Polymyalgia rheumatica (principal); M17.0 Bilateral primary osteoarthritis of knee; D72.9 Disorder of white blood cells, unspecified; G56.01 Carpal tunnel syndrome, right upper limb; R20.0 Anesthesia of skin | CPT/HCPCS: 99212 ==

== ENCOUNTER 2024-04-11 08:07 | Outpatient (AMB) | payer MEDICARE, OTHER, SELFPAY ==
--- OUTSIDE RECORDS SUMMARY | 2024-04-11 08:13 | XMS_ITS | Continuity of Care Document ---
Author Organization [facility], , [facility], OFFICE Address [address] [place] [address] Care Team Providers Care Zyglo Technician Name Role Phone EDD KOCH Primary Care Provider JOHNATHON VEGA Animal Care Supervisor Assessment No assessment recorded. Plan of Treatment Reminders Order Date Submit Date Provider Last Modified By Organization Details Last Modified Time Details Appointments None recorded. Lab None recorded. Referral None recorded. Procedures None recorded. Surgeries None recorded. Imaging None recorded. Medication Orders simvastatin 40 mg tablet 2024 025 [facility]/Pharmacy #[id number], [address] [place], [address], 09:48:15 Patient TargetsNo targets recorded. Patient Instructions Encounter Date Encounter Id Patient Instructions Last Modified By Organization Details Last Modified Time 04/05/2024 [id number] After a discussi on of treatment options, which included consideration of best practices, patient preferences, and the patient? s individual lifestyle and treatment goals, as well as consideration and attempted mitigation of any barriers to meeting the patient? s goals, the following treatment plan and objectives were adopted: -Good to see you today! -Take your medications as prescribed, and please let us know if you have any unwanted or unexpected side effects. -Please review the patient education provided to you today. -Keep your follow-up appointments as scheduled. -Please let us know if you are worse in any way, we are semiconductor processing group leader 24 hours a day, 7 days a week by phone: [phone]. -Please let us know if you have any further questions or concerns. Not available 04/08/2024 09:32:59 General Health Maintenance Lifestyle changes, including reduced beer consumption, have improved urinary symptoms and sleep quality. There is awareness of the potential inflammatory effects of carbohydrates, and dietary intake is being monitored. Stopping beer consumption in December has contributed to improved symptoms along with prednisone. Encourage continued reduction in alcohol consumption and monitor dietary intake to reduce inflammation. Not available 04/08/2024 09:33:01 Reason for Referral None Reported. Problems Name Problem SNOMED Code Status Onset Date Resolution Date Notes Provider Name and Address Organization Details Recorded Time Foot pain 48342612 Active Not Available [facility] 2 13:18:16 Impaired fasting glycemia 355284582 Active 2017 Not Available [facility] 2 13:18:16 Skin hypopigm ented 48782930 Active 2021 Delphine Burgos PA-C [address] [place] [address], [phone] , [facility] 2 16:52:12 Polymyal bertha rheumati ca 47476292 Active 2021 IDALMIS Villavicencio [address] [place] [address], [address] , [facility] 2 14:39:28 Osteopen ia 929229938 Active 2022 TAB Reyes [address] [place] [address], [phone] , 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 4 11:51:55 History of malignan t basal cell neoplasm of skin 469454635 Active 2023 Satinder Dey PA-C [address] [place] [address], [address] , [facility] 4 11:52:28 Benign prostati c hyperpla brielle 759616507 Active 2023 CHRISTINA Asencio, MATHEW [address] [place], [address] , [facility] 4 10:24:21 Paresthe brielle of upper limb 91941909 Active 2023 CHRISTINA Asencio NP [address] [place], [address] , [facility] 4 10:25:35 Headache 71893586 Completed 200405/18/2011 Not Available [facility] 3 03:07:37 Mixed hyperlip idemia 004710848 Active 2001 Not Available [facility] 2 13:18:16 Presbyop ia 36225126 Completed 200105/18/2011 Not Available [facility] 3 03:07:37 Essentia l hyperten paty 95075462 Active Not Available [facility] 2 13:18:16 Inflamma tory disease of liver 879555038 Completed 200205/18/2011 Not Available [facility] 3 03:07:37 Infarcti on of lung due to iatrogen ic pulmonar y embolism 995854839 Completed 200705/18/2011 Not Available [facility] 3 03:07:37 Acute cholecys titis 67114903 Completed 200205/18/2011 Not Available [facility] 3 03:07:37 Thromboe mbolic disorder 603845013 Completed 200705/18/2011 Not Available [facility] 3 03:07:37 Orchitis and epididym itis 627090355 Completed 200505/18/2011 Not Available [facility] 3 03:07:37 Benign essentia l hyperten paty 7134915 Active Not Available [facility] 2 13:18:16 Lymphade nopathy 65557097 Completed 200801/17/2013 Not Available [facility] 3 02:03:13 Impacted cerumen 16686485 Completed 200205/18/2011 Not Available [facility] 3 03:07:37 Acute pharyngi tis 591078361 Completed 05/18/2011 Not Available [facility] 3 03:07:37 Cholangi tis 99829950 Completed 200205/18/2011 Not Available [facility] 3 03:07:37 Pure hypercho lesterol emia 480741308 Completed 200105/18/2011 Not Available [facility] 3 03:07:37 Acute sinusiti s 42349005 Completed 200705/18/2011 Not Available [facility] 3 03:07:37 Abdomina l pain 21286285 Completed 200205/18/2011 Not Available [facility] 3 03:07:37 Nonvenom ous insect bite of multiple sites 409226077 Completed 200405/18/2011 Not Available [facility] 3 03:07:37 Measurem ent finding 866853968 Completed 200205/18/2011 Not Available [facility] 3 03:07:37 Localize d infectio n of skin AND/OR subcutan eous tissue 142998970 Completed 200205/18/2011 Not Available [facility] 3 03:07:37 Knee pain Completed 200405/18/2011 Not Available [facility] 3 03:07:37 Allergic rhinitis caused by pollen 51412677 Active 2007 Not Available [facility] 2 13:18:16 Earache symptom 015615406 Completed 01/17/2013 Not Available [facility] 3 02:03:46 Jaundice 22545132 Completed 200205/18/2011 Not Available [facility] 3 03:07:37 Hyperlip idemia 92537669 Active 2007 Not Available [facility] 2 13:18:16 Gallston e 315987988 Active 2002 Not Available [facility] 2 13:18:16 Pain in limb 71705630 Completed 200705/18/2011 Not Available [facility] 3 03:07:37 Malaise and fatigue 744514529 Completed 200205/18/2011 Not Available [facility] 3 03:07:37 Paralyti c ileus 86446642 Completed 200605/18/2011 Not Available [facility] 3 03:07:37 Problem Notes None recorded. Procedures Surgical History Date Name Laterality Status Provider Name and Address Organization Details Recorded Time 07/26/19 24 Shave Biopsy AG completed Satinder Dey PA-C [address] [place] [address], [phone], [facility] 07/26/2023 11:41:44 06/28/19 24 G2211 completed Stacie Whitt MA [facility] 06/28/2023 14:53:46 02/16/20 22 Cerumen Removal - Irrigation/Lavage completed Cammy Miranda MA [facility] 02/15/2022 11:40:04 08/11/19 22 Medicare Wellness Visit completed Stacie Whitt MA [facility] 08/10/2021 14:16:35 08/11/19 22 Alcohol use screening completed Stacie Whitt MA [facility] 08/10/2021 14:16:35 08/11/19 22 Cardiovascular disease risk reduction counseling completed Stacie Whitt MA [facility] 08/10/2021 14:16:35 02/26/20 20 Medicare Wellness Visit completed Rosa Clark MA [facility] 02/26/2020 10:18:06 02/26/20 20 prevention-cardiov ascular risk reduction counseling completed Rosa Clark MA [facility] 02/26/2020 10:18:06 02/26/20 20 prevention-annual alcohol misuse screening completed Rosa Clark MA [facility] 02/26/2020 10:18:06 01/20/20 19 Medicare Wellness Visit completed Jaiden Wilkins MA [facility] 01/19/2019 10:27:59 01/20/20 19 Cerumen Removal - Irrigation/Lavage completed Jaiden Wilkins MA [facility] 01/19/2019 11:37:04 03/16/19 17 Removal of foreign body from the skin completed Louisa Regan PA-C [address] [place], [address], [facility] 03/16/2016 09:21:08 06/16/19 16 Medicare Wellness Visit completed Nicole Noguera MA [facility] 06/16/2015 08:07:04 10/24/19 15 Cerumen Removal completed Li Stallings PA-C [address] [place], [address], [facility] 10/23/2014 09:43:10 11/28/19 11 Removal of foreign body from the skin completed Sandra Mason MD [address] [place] [address], [phone], [facility] 11/27/2010 10:54:41 02/28/19 07 Appendectomy completed Not Available [facility] 01/14/2011 06:06:16 Colonoscopy completed Not Available [facility] 01/14/2011 06:05:52 Arthroscopy completed Juan Miguel David MD [address] [place] [address], [address], [facility] 05/18/2011 09:51:39 Imaging Results None recorded. Procedure Notes None recorded. Medical Equipment None Reported. Allergies No known drug allergies Medications Name Sig Start Date Stop Date Status Note LastModified by Organization Details LastModified Time multivita min tablet 2010 active Take 1.00 tabs every day Not Available Not Available Not Available losartan 50 mg tablet TAKE 1 TABLET PO DAILY (w/ 25mg tab for TDD of 75mg) 10/07 completed Not Available Not Available Not Available amoxicill in 500 mg capsule TAKE 1 CAPSULE BY MOUTH 3 TIMES A DAY 02/25 completed Not Available Not Available Not Available latanopro st 0.005 % eye drops INSTILL 1 DROP INTO BOTH EYES EVERY DAY AT NIGHT active Not Available Not Available No t Available prednison e 10 mg tablet TAKE 1 TABLET BY MOUTH EVERY DAY 04/05 completed 04/02/22 9 mg/d dropping 1 mg/month Not Available Not Available Not Available doxycycli ne hyclate 100 mg capsule TAKE 1 CAPSULE TWICE A DAY BY ORAL ROUTE FOR 28 DAYS. 08/10 completed finishis hed 08/10/21 Not Available Not Available Not Available atorvasta tin 20 mg tablet Please specify directio ns, refills and quantity active Not Available Not Available No t Available prednison e 20 mg tablet TAKE 1 TABLET BY MOUTH EVERY DAY FOR 10 DAYS 12/29 completed Not Available Not Available Not Available alendrona te 70 mg tablet Take 1 tablet every week by oral route. 06/27 completed Not Available Not Available Not Available prednison e 5 mg tablet TAKE 1 TABLET BY MOUTH EVERY DAY WITH MEALS 06/27 completed Not Available Not Available Not Available aspirin 81 mg tablet,de layed release 01/19 completed Take 1.00 tabs every day Not Available Not Available Not Available amoxicill in 500 mg tablet TAKE 1 TABLET BY MOUTH 3 TIMES A DAY 02/25 completed Not Available Not Available Not Available simvastat in 40 mg tablet TAKE 1 TABLET BY MOUTH EVERY DAY active Not Available Not Available No t Available tamsulosi n 0.4 mg capsule TAKE 1 CAPSULE BY MOUTH EVERY DAY active Not Available Not Available No t Available prednison e 1 mg tablet TAKE 3 TABLETS BY MOUTH EVERY MORNING AND TAKE 2 TABLETS BY MOUTH AT BEDTIME 10/24 completed stoped taking 2 weeks ago Not Available Not Available Not Available doxycycli ne monohydra te 100 mg capsule TAKE 1 CAPSULE BY MOUTH TWICE A DAY 12/26 completed Not Available Not Available Not Available prednison e 2.5 mg tablet TAKE 1 TABLET BY MOUTH TWICE A DAY active Not Available Not Available No t Available cephalexi n 500 mg capsule Take 1 capsule every 8 hours by oral route as directed for 5 days. 08/05 completed Not Available Not Available Not Available simvastat in 20 mg tablet TAKE 1 TABLET PO AT BEDTIME 07/01 completed Not Available Not Available Not Available lisinopri l 10 mg tablet Take 1 tablet every day by oral route. 06/28 completed Not Available Not Available Not Available losartan 25 mg tablet TAKE 1 TABLET PO DAILY (w/ 50mg tab for TDD of 75mg) 10/07 completed Not Available Not Available Not Available hydrochlo rothiazid e 12.5 mg capsule TAKE 1 CAPSULE BY MOUTH EVERY DAY active Not Available Not Available No t Available ibuprofen 200 mg tablet Take 2 tablets every 4 hours by oral route. 07/20 completed PRN Not Available Not Available Not Available cephalexi n 500 mg tablet Take 1 tablet every 6 hours by oral route for 10 days. 12/25 completed Not Available Not Available Not Available hydroxych loroquine 200 mg tablet 200 MG ORALLY 2 TIMES A DAY active Not Available Not Available No t Available Percocet 5 mg-325 mg tablet Take 1 tablet every 4-6 hours by oral route. 2013 active Not Available Not Available Not Avai lable losartan 100 mg tablet TAKE 1 TABLET BY MOUTH EVERY DAY active Not Available Not Available No t Available fluticaso ne propionat e 50 mcg/actua tion nasal spray,yumi pension Inhale 2 sprays every day by intranas al route. 2015 active PRN Not Available Not Available Not Avai lable clotrimaz ole 1 % topical cream Apply to the affected and surround ing areas of skin by topical route 2 times per day in the morning and evening 2010 active Not Available Not Available Not Avai lable doxycycli ne hyclate 100 mg tablet Take 2 tablets by oral route as directed for 1 day. 05/28 completed Not Available Not Available Not Available finasteri de 5 mg tablet TAKE 1 TABLET BY MOUTH EVERY DAY active Not Available Not Available No t Available Asprin Ec Low Dose 81 mg tablet,de layed release Take 1 tablet every day by oral route. 01/07 completed stop taking it a month ago due to the news that he was hearing. 01/07 Not Available Not Available Not Available chlorhexi dine gluconate 0.12 % mouthwash 10/07 completed Not Available Not Available Not Available Tussin Unknown type 2010 active PRN Not Available Not Available Not Avai lable Aleve 250/tylo nal Duel action Aleave active Not Available Not Available No t Available calcium 600 mg active Not Available Not Avail able Not Available diclofena c 1 % topical gel APPLY 2 GRAMS TO THE AFFECTED AREA(S) BY TOPICAL ROUTE 4 TIMES PER DAY NEEDED FOR PAIN active Not Available Not Available No t Available Fluzone High-Dose Quad (PF) 240 mcg/0.7 mL IM syringe ADM 0.7ML IM UTD 02/25 completed Not Available Not Available Not Available Vitals Date Recorded Body height Body mass index (BMI) Body weight Oxygen saturation Oxygen saturation in Arterial blood by Pulse oximetry Heart rate Systolic blood pressure Diastolic blood pressure Provider Name and Address Organization Details Last Updated DateTime 5 167.64 cm 28 kg/m2 51622.5 8 g 99 % 99 % 81 /min 120 mm[Hg] 74 mm[Hg] Sarita Bass MA [facility] 5 09:28:20 Social History Question Answer Notes LastModified by Organizat ion Details LastModified Time Tobacco Smoking Status Never Smoker Not Available [facility] 01/14/2011 04:50:25 What Is Your Level Of Alcohol Consumption? Heavy 4-5 Beers/day Information not available 01/19/2019 Do You Wear A Helmet When Biking? Yes Information not available 02/26/2020 What Is Your Level Of Caffeine Consumption? Moderate 3-4 Cups Coffee/day Information not available 05/18/2011 How Much Tobacco Do You Chew? None [email or web address] Information not available 02/18/2011 Are You Currently Employed? Yes Information not available 08/10/2021 What Type Of Diet Are You Following? REGULAR Information not available 05/18/2011 Which Illicit Or Recreational Drugs Have You Used? None Information not available 05/18/2011 Do You Or Have You Ever Used E-cigarettes Or Vape? 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 No Information not available 02/26/2020 Do You Use Insect Repellent Routinely? Yes Information not available 08/10/2021 Live Alone Or With Others? With Others Information not available 01/14/2011 Patient Has Health Care Proxy Signed And In Chart No -orion [email or web address] Information not available 12/27/2017 CCM Consent Discussion 08/10/2021 [email or web address] Information not available 08/11/2021 Marital Status Information not available 01/14/2011 Mosquito Repellent Used Routinely Yes Information not available 05/18/2011 What Was The Date Of Your Most Recent Tobacco Screening? 04/05/2024 [email or web address] Information not available 04/05/2024 How Many Children Do You Have? 3 1 Grand [email or web address] Information not available 06/28/2012 What Is Your Relationship Status? Information not available 08/10/2021 Do You Use Your Seat Belt Or Car Seat Routinely? Yes Information not available 08/10/2021 Seat Belts Used Routinely Yes Sometimes Information not available 07/02/2013 Are You Sexually Active? Yes Information not available 05/18/2011 Smoke Alarm In Home Yes [email or web address] Information not available 01/14/2011 Do You Have Smoke And Carbon Monoxide Detectors In Your Home? Yes Information not available 08/10/2021 Are You Passively Exposed To Smoke? No Information not available 08/10/2021 Do You Or Have You Ever Used Smokeless Tobacco? Never Used Smokeless Tobacco Information not available 01/19/2019 How Much Tobacco Do You Smoke? No Information not available 01/19/2019 What Types Of Sporting Activities Do You Participate In? Skiing Information not available 01/19/2019 General Stress Level Low Information not available 02/26/2020 Do You Use Any Illicit Or Recreational Drugs? No Information not available 08/10/2021 Do You Use Sunscreen Routinely? Yes [email or web address] Information not available 01/14/2011 Do You Or Have You Ever Used Any Other Forms Of Tobacco Or Nicotine? No [email or web address] Information not available 02/09/2024 Sex: Unknown Functional Status Question Answer Note LastModified by Organization D etails LastModified Time What is your exercise level? None Information not available 08/10/2021 Mental Status None recorded. Family History Relationship Description Onset Age of this Age Resolved Age Notes LastModified by Organization Details LastModified Time Mother Myocardial infarction 38 h/o RF [email or web address] Not available 06/15 08:24:15 Mother Scarlet fever 5 [email or web address] Not available 2020 11:40:59 Notes:Cardiovascular: Family history is remarkable for hypertension and coronary artery disease. Musculoskel/Connect.Tissue: Family history is remarkable for osteoarthritis. Psychiatric: Family history is remarkable for alcoholism. Endocrine: There is no family history of diabetes mellitus. Cancer : There is no family history of cancer. Medical History Condition Response Hypertension Y Colon Polyps Y Immunizations Vaccine Type Date Status Note Provider Nam e and Address Organization Details Recorded Time Tdap 1 completed Not Available [facility] 03/17/2019 02:20:18 Td(adult) unspecified formulation 2 completed IDALMIS Villavicencio [address] [place], [address], [facility] 08/10/2021 15:01:58 Influenza, split virus, trivalent, preservative 2 completed Not Available [facility] 03/17/2019 02:28:47 zoster live 2 completed Not Available [facility] 03/17/2019 02:39:39 Influenza, split virus, quadrivalent, PF 3 completed Not Available [facility] 03/17/2019 02:18:55 influenza, unspecified formulation 2 completed IDALMIS Villavicencio [address] [place], [address], [facility] 08/10/2021 15:01:58 Influenza, split virus, trivalent, PF 4 completed Not Available [facility] 03/17/2019 02:19:23 Influenza, split virus, quadrivalent, PF 5 completed Not Available [facility] 03/17/2019 02:19:48 Pneumococcal conjugate PCV 13 6 completed Not Available [facility] 03/17/2019 02:39:34 Influenza, high-dose, trivalent, PF 6 completed Not Available [facility] 03/17/2019 02:33:34 Influenza, high-dose, trivalent, PF 9 completed Not Available [facility] 03/17/2019 02:28:45 pneumococcal polysaccharide PPV23 9 completed Not Available [facility] 03/17/2019 02:36:22 Td (adult), 2 Lf tetanus toxoid, preservative free, adsorbed 1 [facility] 13:52:51 Influenza, split virus, quadrivalent, preservative 0 completed IDALMIS Villavicencio [address] [place] [address], [address], [facility] 08/10/2021 15:01:58 Influenza, split virus, quadrivalent, preservative 1 completed IDALMIS Villavicencio [address] [place] [address], [address], [facility] 08/10/2021 15:01:58 COVID-19, mRNA, LNP-S, PF, 100 mcg/0.5mL dose or 50 mcg/0.25mL dose 1 completed IDALMIS Villavicencio [address] [place] [address], [address], [facility] 08/10/2021 15:01:58 COVID-19, mRNA, LNP-S, PF, 100 mcg/0.5mL dose or 50 mcg/0.25mL dose 1 completed IDALMIS Villavicencio [address] [place] [address], [address], [facility] 08/10/2021 15:01:58 COVID-19, mRNA, LNP-S, PF, 100 mcg/0.5mL dose or 50 mcg/0.25mL dose 1 completed IDALMIS Villavicencio [address] [place] [address], [address], [facility] 08/10/2021 15:01:58 COVID-19, mRNA, LNP-S, PF, 100 mcg/0.5mL dose or 50 mcg/0.25mL dose 2 completed IDALMIS Villavicencio [address] [place] [address], [phone], [facility] 08/10/2021 15:01:58 influenza, unspecified formulation 2 [facility] 09:41:48 influenza, unspecified formulation 3 completed [facility]/30/2022 14:09:26 SARS-COV-2 (COVID-19) vaccine, UNSPECIFIED 3 completed [facility]itt [facility]/30/[facility]22 14:09:39 Respiratory syncytial virus (RSV) MAB, unspecified 3 completed [facility] 12/31/2022 07:02:56 SARS-COV-2 (COVID-19) vaccine, UNSPECIFIED 4 completed Juliana [facility] 05/17/2023 12:32:35 SARS-COV-2 (COVID-19) vaccine, UNSPECIFIED 4 completed [facility]/30/2023 14:18:03 influenza, unspecified formulation 4 completed [facility]23 14:18:14 Past Encounters Encounter ID Performer Location Encounter Start Date Encounter Closed Date Diagnosis/Indication Diagnosis SNOMED-CT Code Diagnosis ICD10 Code Diagnosis Note [id number] IDALMIS Villavicencio , [facility], OFFICE [address] [place] [address] 04/05/2024 09:19:20 04/05/2024 10:04:05 Mixed hyperlipidemia 980697698 E78.2 156/73/45/ 96.4On simvastati n dailyToler ating wellEating a healthy diet Essential hypertension 99065573 I10 Hypertensi onBlood pressure is well-contr olled with recent readings around 120/74 mmHg. Management includes hydrochlor othiazide and simvastati n. Prefers [facility] for medication refills due to consistenc y. Refill simvastati n prescripti on at [facility] and continue hydrochlor othiazide. Rheumatoid arthritis 698 20905 M06.9 Rheumatoid ArthritisJ oint pain is worsening, initially affecting the knees and now the hands, indicating progressio n of rheumatoid arthritis. Despite two years on hydroxychl oroquine, symptoms are advancing. Prednisone has significan tly improved joint pain and neuropathy . A consultati on with rheumatolo gist Dr. Johnson is scheduled for long-term management and potential treatment adjustment s. Prednisone effectivel y reduces inflammati on but does not stop disease progressio n. Concerns about long-term management and alternativ e treatments are being considered . Continue hydroxychl oroquine and prednisone 5 mg, 2.5 mg twice daily. Consult with Dr. Johnson for further management . Idiopathic peripheral neuropathy [id number] G60.9 Peripheral Neuropathy Neuropathy symptoms have improved since starting prednisone , suggesting an inflammato ry component. Tingling and numbness in the hands have significan tly improved. A neurology appointmen t is scheduled for further evaluation to determine if neuropathy is related to arthritis or another inflammato ry process. Continue prednisone and attend the neurology appointmen t. Muscle weakness [id number] M62.81 Muscle WeaknessMu scle weakness in the lower legs is likely due to prolonged knee pain and reduced activity. Physical therapy is being considered to rebuild muscle strength, particular ly in the spring when mobility is less affected by weather. Consider physical therapy in the spring to improve muscle strength. Health Concerns Section Related Observation LastModified by Organization Detai ls LastModified Time None Recorded Concern Status LastModified by Organization Details LastModified Time None Recorded Payers Encounter Date Sequence Insurance Name Policy Number Policy Rich Covered Member ID Rich Member ID Guarantor Name 04/05/2024 2 [facility] [id number] More Kiran [id number] Israel Kiran 04/05/2024 1 MEDICARE B-MA: [facility] Therapeutic Monitoring Services SERVICES Israel Kiran [id number] Israel Kiran Notes Date Note Type Note Provider Name and Address Organization Details Recorded Time 5 text/html Pt is aware of the use of ambient listening during office visit. The patient, with rheumatoid arthritis, presents with worsening joint pain and neuropathy.He has been experiencing worsening joint pain, particularly in his knees and hands. The knee pain has intensified since a fall, limiting his ability to walk long distances and necessitating frequent rest. In January, his hands became involved, further complicating daily activities. Despite being on hydroxychloroquine for two years, he feels it is not adequately controlling his symptoms. Prednisone at a dose of 5 mg daily, split into two doses, has significantly improved his knee pain, although discomfort persists after physical exertion. Prolonged knee issues have led to muscle weakness in his legs, affecting his ability to walk long distances or ski.He has been experiencing neuropathy, which was worsening until he restarted prednisone. Since then, the neuropathy has significantly improved, with tingling and numbness in his hands almost completely resolved. His hands were previously weak but have regained strength since stopping the use of a glove and starting prednisone.He is currently taking prednisone at a dose of 5 mg, split into two doses of 2.5 mg each per day. He is also due for a refill on simvastatin and is taking hydrochlorothiazide along with other medications prescribed by another doctor.He stopped drinking beer in December, which has helped reduce nighttime bathroom trips and improved his sleep. He has noticed no significant change in his joint symptoms from stopping beer, but acknowledges potential long-term benefits.His blood pressure has been stable and well-controlled. Edd Kcoh, HIDE AND SKIN CLASSER [address] [place] [address], [phone], [facility] 04/08/2024 09:33:23
--- NOTE | 2024-04-11 08:33 | A.OFFVIS_ITS ---
Vital Signs 04/11/24 08:37 Height 5 ft 5 in Weight 172 lb 9.951 oz BMI 28.7 BP 140/80 H Blood Pressure Location Lt brachial Position Sitting Pulse 78 Pulse Source Pulse Oximeter Pulse Oximetry (%) 98 Oxygen Delivery Method Room Air Intake Visit Reasons: RA/PMR Intake Note: Patient presents for RA/PMR. Allergies No Known Allergies Allergy (Verified 02/13/24 10:44) Medication List - Last Reconciled 04/11/24 by Brittney Johnson MD acetaminophen (Acetaminophen Extra Strength) 500 mg PO BID PRN finasteride 5 mg PO DAILY fluticasone propionate 50 mcg/actuation (Allergy Relief (fluticasone)) 1 spray intranasal BID folic acid 1 mg PO DAILY hydrochlorothiazide 12.5 mg PO DAILY latanoprost 0.005% 1 drp ophthalmic (eye) QPM losartan 100 mg PO DAILY methotrexate sodium 15 mg (6 x 2.5 mg) PO QWEEK 90 days multivitamin 1 tab PO DAILY prednisone 2.5 mg PO BID 90 days simvastatin 40 mg PO DAILY tamsulosin 0.4 mg PO DAILY [wrist splint Wear nightly and as much as possible throughout the day] HPI Comments Details: Patient is a 74-year-old male with PMR/seronegative rheumatoid arthritis, BPH and finasteride, hypotension and hyperlipidemia here today for follow up Interval History: Patient last seen 02/13/[address] Hernandez. At that time he had tapered his prednisone to off the visit prior. Noted that his arthritis was not doing well noting prolonged morning stiffness involving the knees and hands. His exam was consistent with degenerative arthritis with no evidence of synovitis and inflammatory markers being normal. He followed up with Dr. Hernandez about 1 month later noting that he continued to have worsening joint pain involving his hands and his knees. Repeat labs were sent which showed elevated ESR and CRP. He was restarted on prednisone 2.5 mg twice a day. Today, He reports improvement on the prednisone Does not think that Plaquenil is helping and would like other medication options Rheumatologic History: PMR: 06/2021 (fatigue, stiffness of shoulders and hips, high inflammatory markers) Prednisone started 06/2021. Started on 20 mg then reduced to 15 mg after 2 weeks. 07/2022 PMR flared when he reduced his prednisone to 5 mg daily, this resolved with nightly dose of 3 mg. PDN tapered off 09/2023 HCQ started 02/2023 effective Initial history: This is a 72-year-old male with PMR who presents as a new patient. 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 Please see Dr. Ferro's notes below. Patient states that he is doing well overall. He has been having some pain and stiffness of his hands and wrists over the last 2-3 months. He generalized morning stiffness of his body lasting approximately 3 hours. He also feels that he has injured his knee recently but he is able to walk normally and his knees do not give out on him. Knees do not buckle. He states that he has had bilateral meniscal repair in his 40s. Patient is quite active Over the last few months he had rare episodes of terminal hematuria without burning with urination. He mentions that when he was evaluated by Dr. Tovar in March 2021 for knee pain he was told he might have RA. Per Dr. Ferro:? In May patient started to have flu-like symptoms, extreme fatigue for 2 weeks then he started having pain and stiffness in hips and shoulders.? No joint swelling.? He was initially treated with doxycycline which did not help.? He was later diagnosed with PMR and was started on prednisone 20 mg daily and he felt improvement right away.?? The took 20 mg for 10 days and it was decreased to 15 mg for 10 days and then 12.5 mg.? He is on this dose for 18 days.? He is also on Tylenol.?? No headaches, no jaw pain or vision change.?? He still has aches and pains in wrists, shoulders on arms.? Morning stiffness last few hours. 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 Encounter for methotrexate monitoring Glaucoma Osteopenia Impaired fasting glucose PMR (polymyalgia rheumatica) Skin hypopigmentation Gallstones Allergic rhinitis Essential hypertension Mixed hyperlipidemia Surgical History S/P cholecystectomy Hx of appendectomy History of arthroscopy of both knees H/O inguinal hernia repair Family History Mother Myocardial infarct Scarlet fever Father Dementia Social History Household Members: Spouse Alcohol intake: current Alcohol intake frequency: 3 or more drinks per day Alcohol type: beer Patient Tobacco Use Status: Never used Tobacco Current occupational status: retired and other Current occupation: [employer] Review of Systems Const Details: Review of Systems Constitutional: Denies fever, chills, weight loss ENT: Denies vision changes, eye pain or eye redness, dental caries, dry mouth GI: Denies nausea, vomiting, diarrhea, abdominal pain, change in BM Pulm: Denies SOB, MURPHY, hemoptysis, wheezing Cards: Denies chest pain, palpitations Skin: Denies Raynaud's, rash, nail changes, photosensitivity, [employer]: Denies headaches, weakness, paresthesias, recurrent falls MSK: as per HPI All other systems reviewed and are unremarkable except noted above Physical Exam Vital Signs: Last Vital Signs Pulse 78 04/11/24 08:37 BP 140/80 H 04/11/24 08:37 Pulse Ox 98 04/11/24 08:37 Oxygen Delivery Method Room Air 04/11/24 08:37 BMI result Body Mass Index 28.7 Vital signs reviewed Physical Examination CONSTITUITIONAL Patient alert and cooperative. Well appearing and in no apparent painful distress HEENT Conjunctiva and sclera clear. ?Pupils equal round and reactive to light. ?No lymphadenopathy. ? CHEST/RESPIRATORY SYSTEM Normal respiratory effort and able to speak in complete sentences. ?Clear to auscultation bilaterally. ?No crackles, rales, rhonchi, wheezes heard. CARDIAC SYSTEM Regular rate and rhythm. ?S1 and S2 heard no murmurs. ?Radial pulses intact bilaterally MSK Hands: ?Good desk lieutenant strength bilaterally . Deformities noted to the right 5th 3rd digit noted to be old sports injuries. Overall the right hand looks swollen compared to the left hand and there is synovial thickening of bilateral wrists. Wrists: ?Full range of motion at the wrists without pain. ?No tenderness to palpation or synovitis noted to the wrists. Elbows: Full range of motion without pain. No tenderness, weakness, swelling, increased warmth or erythema. Shoulders: Full range of motion without pain. No tenderness, weakness, swelling, increased warmth or erythema. Hips: Full range of motion without pain. Hip bursa: No tenderness to palpation Knees: ?Full range of motion. ?No tenderness, swelling, increased warmth or erythema.?No effusion or crepitations Ankles: Full range of motion. ?No tenderness, swelling, increased warmth or erythema.? Feet: ?Negative squeeze test. ?No tenderness to palpation or swelling of the MTPs. Tender points:?No tenderness to palpation of the bilateral trapezius, supraspinatus, greater trochanters, anterior costochondral junctions, bilateral gluteal areas, bilateral suboccipital muscle insertions SKIN Skin intact without rashes. Results Reviewed Results Reviewed: Results reviewed and scanned document. 04/10/2024 ESR 2.0 CRP 3.2 Assessment & Plan Assessment & Plan (1) PMR (polymyalgia rheumatica): Comment: dx 06/2021 (fatigue, stiffness of shoulders and hips, high inflammatory markers) Prednisone started 06/2021. Started on 20 mg then reduced to 15 mg after 2 weeks. 07/2022 PMR flared when he reduced his prednisone to 5 mg daily, this resolved with nightly dose of 3 mg. PDN tapered off 09/2023 HCQ started 02/2023 effective - 02/2024. No longer effective Methotrexate 03/2024 Code(s): M35.3 - Polymyalgia rheumatica Category: Medical Plan: #PMR Patient is a 74-year-old male with PMR who is now presenting with inflammatory arthritis. This could be related to seronegative rheumatoid arthritis versus related to his underlying PMR. Plaquenil has not been shown to improve the joint pain associated with PMR. Methotrexate, Actemra and Kevzara have all been shown to improve the joint pain associated with PMR. We will start with methotrexate. Continue the prednisolone 5 mg for now Plan - Methotrexate 15mg weekly (3 pills in the AM, 3 pills in the PM) PO - Folic acid 1 mg daily - Stop plaqueni; - Continue prednisone 2.5mg bid - Labs today: Hepatitis panel and T spot - RTC 3 months - Labs before visit: CBC, CMP, ESR, CRP (2) Right carpal tunnel syndrome: Code(s): G56.01 - Carpal tunnel syndrome, right upper limb Category: Medical Plan: #Right CTS Patient with presumed carpal tunnel syndrome involving the right hand. Awaiting EMG confirmation. Has tried splinting but this no longer is helping. We will consider steroid injections after the results of the EMG (3) Encounter for methotrexate monitoring: Code(s): Z51.81 - Encounter for therapeutic drug level monitoring; Z79.631 - prison (c urrent) use of antimetabolite agent Category: Medical Plan: #Long-term Current Use of Methotrexate Discussed with patient the benefits and risks of methotrexate for managing their rheumatic condition Benefits include reduced pain, reduced mortality, maintenance of remission and reduction of flares Risks include oral ulcers, photosensitivity, hepatotoxicity, hematologic toxicity, pneumonitis, flu-like symptoms (especially day after administration), nodulosis, lymphomas ? Limit alcohol and avoid Bactrim ? 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: Code(s): Z79.52 - 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 manager (current) use of systemic steroids Category: Medical Plan: #Long-term Use of Steroids Discussed with patient the risks and benefits of steroid for managing the rheumatic condition Benefits include: - Reduced pain, improved mobility, increased participation in activities, and decreased progression of disease Risks include: - GI upset, potential ultrasound worsening or formation (especially in patients > 65 years old), elevated blood pressure/worsening hypertension, elevated blood sugar/worsening diabetes control, worsening of bone density, elevated lipids/worsening triglycerides, cataract formation, weight gain Recommended using proton pump inhibitors (PPIs) for the duration of steroid use to reduce the risk of gastric ulcers and vitamin-D daily to reduce the risk of osteoporosis Labs checked: ?A1c, T spot, hepatitis-B and C serologies Pneumocystis jiroveci prophylaxis: ?Patient with risk factors including steroids greater than 50 mg for more than 30 days, age greater than 60 years, and lung involvement from underlying rheumatic disease requires prophylaxis and will be given so Plan I spent 40 minutes reviewing the record and labs, taking a history, examining the patient, discussing the treatment plan and documenting in the medical record Orders: Orders T Spot TB Today M35.3 - Polymyalgia rheumatica, Z51.81 - Encounter for therapeutic drug level monitoring, Z79.631 - prison (current) use of antimetabolite agent Hepatitis A,B,C Profile Today M35.3 - Polymyalgia rheumatica, Z51.81 - Encounter for therapeutic drug level monitoring, Z79.631 - prison (current) use of antimetabolite agent Complete Blood Count Auto Diff 3 Months M35.3 - Polymyalgia rheumatica, Z51.81 - Encounter for therapeutic drug level monitoring, Z79.631 - 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 manager (current) use of antimetabolite agent Erythrocyte Sedimentation Rate 3 Months M35.3 - Polymyalgia rheumatica, Z51.81 - Encounter for therapeutic drug level monitoring, Z79.631 - prison (current) use of antimetabolite agent Medications: New methotrexate sodium 15 mg (6 x 2.5 mg) PO QWEEK 90 days 78 tabs 1RF M35.3 - Polymyalgia rheumatica, Z51.81 - Encounter for therapeutic drug level monitoring, Z79.631 - prison (current) use of antimetabolite agent folic acid 1 mg PO DAILY 90 tabs 1RF M35.3 - Polymyalgia rheumatica, Z51.81 - Encounter for therapeutic drug level monitoring, Z79.631 - 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 manager (current) use of antimetabolite agent Changed From prednisone 2.5 mg PO BID 66 tabs 0RF M35.3 - Polymyalgia rheumatica, Z51.81 - Encounter for therapeutic drug level monitoring, Z79.631 - 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 manager (current) use of antimetabolite agent To prednisone 2.5 mg PO BID 90 days 180 tabs 1RF M35.3 - Polymyalgia rheumatica, Z51.81 - Encounter for therapeutic drug level monitoring, Z79.631 - prison (current) use of antimetabolite agent Discontinued hydroxychloroquine Discontinued Reason: Doctor's Order 200 mg PO BID 180 tabs 1RF Coding Level of Care Code Est Pt Level 5 (14355) Complex EM visit Add On G2211 Diagnoses PMR (polymyalgia rheumatica) M35.3 Right carpal tunnel syndrome G56.01 Encounter for methotrexate monitoring Z51.81; Z79.631 prison systemic steroid user Z79.52
[2024-04-11 08:37] VITALS: BP 140/80; PULSE 78; O2SAT 98; BMI 28.7
== END 2024-04-11 09:29 | disposition home or self-care (01) ==
PROVIDERS: PCP Nurse Practitioner Family; Visit Provider Student in an Organized Health Care Education/Training Program
DX: M35.3 Polymyalgia rheumatica (principal); G56.01 Carpal tunnel syndrome, right upper limb; Z51.81 Encounter for therapeutic drug level monitoring; Z79.631 Long term (current) use of antimetabolite agent; Z79.52 Long term (current) use of systemic steroids
CPT/HCPCS: 99215; G2211

== ENCOUNTER → 2024-04-11 08:07 | Outpatient (BNVA) | payer MEDICARE, OTHER, SELFPAY | PROVIDERS: PCP Nurse Practitioner Family; Visit Provider Student in an Organized Health Care Education/Training Program | DX: M35.3 Polymyalgia rheumatica (principal); G56.01 Carpal tunnel syndrome, right upper limb; Z51.81 Encounter for therapeutic drug level monitoring; Z79.631 Long term (current) use of antimetabolite agent; Z79.52 Long term (current) use of systemic steroids | CPT/HCPCS: 99212 ==

== ENCOUNTER 2024-07-19 10:23 | Outpatient (AMB) | payer MEDICARE, OTHER, SELFPAY ==
--- NOTE | 2024-07-19 10:25 | MHC.OFFVIS ---
Vital Signs 07/19/24 10:29 Height 5 ft 5 in Weight 177 lb 7.554 oz BMI 29.5 BP 115/80 Blood Pressure Location Lt brachial Position Sitting Pulse 79 Pulse Source Pulse Oximeter Pulse Oximetry (%) 96 Oxygen Delivery Method Room Air Intake Visit Reasons: 3 months Intake Note: Patient presents for 3 months follow up. Allergies No Known Allergies Allergy (Verified 07/19/24 10:29) Medication List - Last Reconciled 07/19/24 by Brittney Johnson MD acetaminophen (Acetaminophen Extra Strength) 500 mg PO BID PRN finasteride 5 mg PO DAILY fluticasone propionate 50 mcg/actuation (Allergy Relief (fluticasone)) 1 spray intranasal BID folic acid 1 mg PO DAILY hydrochlorothiazide 12.5 mg PO DAILY latanoprost 0.005% 1 drp ophthalmic (eye) QPM losartan 100 mg PO DAILY methotrexate sodium 15 mg (6 x 2.5 mg) PO QWEEK 90 days multivitamin 1 tab PO DAILY prednisone 2.5 mg PO BID 90 days simvastatin 40 mg PO DAILY tamsulosin 0.4 mg PO DAILY [wrist splint Wear nightly and as much as possible throughout the day] HPI Comments Details: Patient is a 74-year-old male with PMR/seronegative rheumatoid arthritis, BPH and finasteride, hypotension and hyperlipidemia here today for follow up Interval History: Patient last seen 04/11/2024 with me. At that time he was following up for his seronegative arthritis on Plaquenil 200 mg twice a day in addition to 2.5 mg b.i.d. prednisone. He did not feel the Plaquenil was efficacious and wanted other options. The plan was to switch him to methotrexate Today, States that he is doing well on the methotrexate Saw ortho for right knee pain and received steroid injection with improvement in his symptoms Rheumatologic History: PMR: 06/2021 (fatigue, stiffness of shoulders and hips, high inflammatory markers) Prednisone started 06/2021. Started on 20 mg then reduced to 15 mg after 2 weeks. 07/2022 PMR flared when he reduced his prednisone to 5 mg daily, this resolved with nightly dose of 3 mg. PDN tapered off 09/2023 HCQ started 02/2023 effective Initial history: This is a 72-year-old male with PMR who presents as a new patient. 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 Please see Dr. Ferro's notes below. Patient states that he is doing well overall. He has been having some pain and stiffness of his hands and wrists over the last 2-3 months. He generalized morning stiffness of his body lasting approximately 3 hours. He also feels that he has injured his knee recently but he is able to walk normally and his knees do not give out on him. Knees do not buckle. He states that he has had bilateral meniscal repair in his 40s. Patient is quite active Over the last few months he had rare episodes of terminal hematuria without burning with urination. He mentions that when he was evaluated by Dr. Tovar in March 2021 for knee pain he was told he might have RA. Per Dr. Ferro:? In May patient started to have flu-like symptoms, extreme fatigue for 2 weeks then he started having pain and stiffness in hips and shoulders.? No joint swelling.? He was initially treated with doxycycline which did not help.? He was later diagnosed with PMR and was started on prednisone 20 mg daily and he felt improvement right away.?? The took 20 mg for 10 days and it was decreased to 15 mg for 10 days and then 12.5 mg.? He is on this dose for 18 days.? He is also on Tylenol.?? No headaches, no jaw pain or vision change.?? He still has aches and pains in wrists, shoulders on arms.? Morning stiffness last few hours. Current Rheumatology Medication(s): Methotrexate 15 mg weekly Folic acid 1 mg daily Prednisone 2.5 mg b.i.d. FOR[facility]LY [facility], [facility] Medical History (Updated 07/19/24 @ 10:49 by Brittney Johnson MD) longterm systemic steroid user Encounter for methotrexate monitoring Glaucoma Osteopenia Impaired fasting glucose PMR (polymyalgia rheumatica) Skin hypopigmentation Gallstones Allergic rhinitis Essential hypertension Mixed hyperlipidemia Surgical History S/P cholecystectomy Hx of appendectomy History of arthroscopy of both knees H/O inguinal hernia repair Family History Mother Myocardial infarct Scarlet fever Father Dementia Social History Household Members: Spouse Alcohol intake: current Alcohol intake frequency: 3 or more drinks per day Alcohol type: beer Patient Tobacco Use Status: Never used Tobacco Current occupational status: retired and other 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 Review of Systems Const Details: Review of Systems Constitutional: Denies fever, chills, weight loss ENT: Denies vision changes, eye pain or eye redness, dental caries, dry mouth GI: Denies nausea, vomiting, diarrhea, abdominal pain, change in BM Pulm: Denies SOB, MURPHY, hemoptysis, wheezing Cards: Denies chest pain, palpitations Skin: Denies Raynaud's, rash, nail changes, photosensitivity, YARN CLEANER: Denies headaches, weakness, paresthesias, recurrent falls MSK: as per HPI All other systems reviewed and are unremarkable except noted above Physical Exam Vital Signs: Last Vital Signs Pulse 79 07/19/24 10:29 BP 115/80 07/19/24 10:29 Pulse Ox 96 07/19/24 10:29 Oxygen Delivery Method Room Air 07/19/24 10:29 BMI result Body Mass Index 29.5 Vital signs reviewed Physical Examination CONSTITUITIONAL Patient alert and cooperative. Well appearing and in no apparent painful distress HEENT Conjunctiva and sclera clear. ?Pupils equal round and reactive to light. ?No lymphadenopathy. ? CHEST/RESPIRATORY SYSTEM Normal respiratory effort and able to speak in complete sentences. ?Clear to auscultation bilaterally. ?No crackles, rales, rhonchi, wheezes heard. CARDIAC SYSTEM Regular rate and rhythm. ?S1 and S2 heard no murmurs. ?Radial pulses intact bilaterally MSK Hands: ?Able to make a fist. No synovitis noted to the MCPs, PIPs or DIPs. ?No tenderness to palpation of these joints. Herbeden's nodes and Richard's nodes Wrists: ?Full range of motion at the wrists without pain. ?No tenderness to palpation or synovitis noted to the wrists. Elbows: Full range of motion without pain. No tenderness, weakness, swelling, increased warmth or erythema. Shoulders: Full range of active range of motion without pain. No tenderness, weakness, swelling, increased warmth or erythema. Knees: ?Full range of motion. ?No tenderness, swelling, increased warmth or erythema.?Crepitations Ankles: Full range of motion. ?No tenderness, swelling, increased warmth or erythema.? Feet: ?Negative squeeze test. ?No tenderness to palpation or swelling of the MTPs. Tender points:?No tenderness to palpation of the bilateral trapezius, supraspinatus, greater trochanters, anterior costochondral junctions, bilateral gluteal areas, bilateral suboccipital muscle insertions SKIN Skin intact without rashes. Results Reviewed Results Reviewed: [facility] labs reviewed 03/2024 TB negative Hep A/B/C nonreactive WBC 9.94 HB 14 HCT 42.9 Platelets 285 ESR 2.0 CRP 3.2 Creatinine 1.1 GFR >60 AST/ALT XR bilateral knees 04/2024 Right knee: No acute or healing fracture seen. Likely moderate osteoarthritic changes with the medial compartment. Associated with significant medial joint space narrowing. Chondral calcifications within the lateral compartment Likely mild osteoarthritic changes within the patellofemoral compartment No right knee dislocation No patellar dislocation Left knee: No acute or healing fracture seen. No patellar dislocation seen. Likely moderate osteoarthritic changes within the medial compartment. Associated with significant medial joint space narrowing. Chondral calcifications within the lateral compartment Likely mild osteoarthritic changes within the patellofemoral compartment Assessment & Plan Assessment & Plan (1) PMR (polymyalgia rheumatica): Comment: dx 06/2021 (fatigue, stiffness of shoulders and hips, high inflammatory markers) Prednisone started 06/2021. Started on 20 mg then reduced to 15 mg after 2 weeks. 07/2022 PMR flared when he reduced his prednisone to 5 mg daily, this resolved with nightly dose of 3 mg. PDN tapered off 09/2023 HCQ started 02/2023 effective - 02/2024. No longer effective Methotrexate 03/2024 Code(s): M35.3 - Polymyalgia rheumatica Category: Medical Plan: #PMR Patient is a 74-year-old male with PMR who is now presenting with inflammatory arthritis. This could be related to seronegative rheumatoid arthritis versus related to his underlying PMR. Plaquenil has not been shown to improve the joint pain associated with PMR. Methotrexate, Actemra and Kevzara have all been shown to improve the joint pain associated with PMR. Doing well on methotrexate 15mg weekly. We will decrease prednisone to 2.5mg daily Plan - Methotrexate 15mg weekly (3 pills in the AM, 3 pills in the PM) PO - Folic acid 1 mg daily - Prednisone 2.5mg daily - Labs today: CBC, CMP, ESR, CRP - RTC 3 months - Labs before visit: CBC, CMP, ESR, CRP (2) Bilateral primary osteoarthritis of knee: Code(s): M17.0 - Bilateral primary osteoarthritis of knee Category: Medical Plan: #Bilateral knee OA Patient with bilateral knee OA as evidenced by XRs and exam. Seeing orthopedics and getting steroid injections Continue follow up (3) Encounter for methotrexate monitoring: Code(s): Z51.81 - Encounter for therapeutic drug level monitoring; Z79.631 - continuous churn buttermaker (current) use of antimetabolite agent Category: Medical Plan: #Long-term Current Use of Methotrexate Discussed with patient the benefits and risks of methotrexate for managing their rheumatic condition Benefits include reduced pain, reduced mortality, maintenance of remission and reduction of flares Risks include oral ulcers, photosensitivity, hepatotoxicity, hematologic toxicity, pneumonitis, flu-like symptoms (especially day after administration), nodulosis, lymphomas ? Limit alcohol and avoid Bactrim ? Monitoring: ?CBC, BMP, LFTs every 3-4 months and hepatitis serologies as needed (4) longterm systemic steroid user: Code(s): Z79.52 - longterm (current) use of systemic steroids Category: Medical Plan: #Long-term Use of Steroids Discussed with patient the risks and benefits of steroid for managing the rheumatic condition Benefits include: - Reduced pain, improved mobility, increased participation in activities, and decreased progression of disease Risks include: - GI upset, potential ultrasound worsening or formation (especially in patients > 65 years old), elevated blood pressure/worsening hypertension, elevated blood sugar/worsening diabetes control, worsening of bone density, elevated lipids/worsening triglycerides, cataract formation, weight gain Recommended using proton pump inhibitors (PPIs) for the duration of steroid use to reduce the risk of gastric ulcers and vitamin-D daily to reduce the risk of osteoporosis Labs checked: ?A1c, T spot, hepatitis-B and C serologies Pneumocystis jiroveci prophylaxis: ?Patient with risk factors including steroids greater than 50 mg for more than 30 days, age greater than 60 years, and lung involvement from underlying rheumatic disease requires prophylaxis and will be given so Plan I spent 40 minutes reviewing the record and labs, taking a history, examining the patient, discussing the treatment plan and documenting in the medical record Medications: Changed From prednisone 2.5 mg PO BID 90 days 180 tabs 1RF M35.3 - Polymyalgia rheumatica, Z51.81 - Encounter for therapeutic drug level monitoring, Z79.631 - longterm (current) use of antimetabolite agent To prednisone 2.5 mg PO DAILY 90 days 90 tabs 1RF M35.3 - Polymyalgia rheumatica, Z51.81 - Encounter for therapeutic drug level monitoring, Z79.631 - longterm (current) use of antimetabolite agent Refilled methotrexate sodium 15 mg (6 x 2.5 mg) PO QWEEK 90 days 78 tabs 1RF M35.3 - Polymyalgia rheumatica, Z51.81 - Encounter for therapeutic drug level monitoring, Z79.631 - longterm (current) use of antimetabolite agent folic acid 1 mg PO DAILY 90 tabs 1RF M35.3 - Polymyalgia rheumatica, Z51.81 - Encounter for therapeutic drug level monitoring, Z79.631 - continuous churn buttermaker (current) use of antimetabolite agent Coding Level of Care Code Est Pt Level 3 (65449) Complex EM visit Add On G2211 Diagnoses PMR (polymyalgia rheumatica) M35.3 Bilateral primary osteoarthritis of knee M17.0 Encounter for methotrexate monitoring Z51.81; Z79.631 continuous churn buttermaker systemic steroid user Z79.52
[2024-07-19 10:29] VITALS: BP 115/80; PULSE 79; O2SAT 96; BMI 29.5
--- OUTSIDE RECORDS SUMMARY | 2024-07-19 10:54 | XMS_ITS | Data Portability ---
Author Organization [facility] [place] [facility] Address [address] [place] [address] Care Team Providers Care Handkerchief Presser Name Role Phone EDD ALLEN Primary Care Provider Assessment No assessment recorded. Plan of Treatment Reminders Order Date Submit Date Provider Last Modified By Organization Details Last Modified Time Details Appointments RECHECK 15 2024 10:45A M Dereje Davila PA-C Not available Not available Not available Lab None recorded . Referral None recorded . Procedures None recorded . Surgeries None recorded . Imaging None recorded . Medication Orders None recorded . Patient TargetsNo targets recorded. Patient InstructionsNo instructions recorded. Reason for Referral None Reported. Problems Name Problem SNOMED Code Status Onset Date Resolution Date Notes Provider Name and Address Organization Details Recorded Time Osteoarthri tis of right knee joint [id number] 00 Active 2024 Gloria Abebe PA-C [address], [place], [address], [facility] 16:17:14 Problem Notes None recorded. Procedures Surgical History Date Name Laterality Status Provider Name and Address Organization Details Recorded Time 07/13/2024 Sports Knee 4&1 completed Gloria Abebe PA-C [address], [place], [address], [facility] 07/13/2024 16:17:09 Imaging Results None recorded. Procedure Notes None recorded. Medical Equipment None Reported. Allergies No known drug allergies Medications Name Sig Start Date Stop Date Status Note LastModified by Organization Details LastModified Time latanoprost 0.005 % eye drops INSTILL 1 DROP INTO BOTH EYES EVERY DAY AT NIGHT active Not Available Not Available No t Available simvastatin 40 mg tablet TAKE 1 TABLET BY MOUTH EVERY DAY active Not Available Not Available No t Available methotrexate sodium 2.5 mg tablet TAKE 6 TABLETS ORALLY EVERY WEEK FOR 90 DAYS active Not Available Not Available No t Available tamsulosin 0.4 mg capsule TAKE 1 CAPSULE BY MOUTH EVERY DAY active Not Available Not Available No t Available prednisone 1 mg tablet TAKE 3 TABLETS BY MOUTH EVERY MORNING AND TAKE 2 TABLETS BY MOUTH AT BEDTIME active Not Available Not Available No t Available prednisone 2.5 mg tablet TAKE 1 TABLET ORALLY 2 TIMES A DAY FOR 90 DAYS active Not Available Not Available No t Available hydrochlorothia zide 12.5 mg capsule TAKE 1 CAPSULE BY MOUTH EVERY DAY active Not Available Not Available No t Available folic acid 1 mg tablet TAKE ONE TABLET BY MOUTH DAILY active Not Available Not Available No t Available hydroxychloroqu ine 200 mg tablet TAKE 1 TABLET ORALLY 2 TIMES A DAY active Not Available Not Available No t Available losartan 100 mg tablet TAKE 1 TABLET BY MOUTH EVERY DAY active Not Available Not Available No t Available finasteride 5 mg tablet TAKE 1 TABLET BY MOUTH EVERY DAY active Not Available Not Available No t Available Vitals Date Recorded Body height Body mass index (BMI) Body weight Provider Name and Address Organization Details Last Updated DateTime 07/13/2024 167.64 cm 27.4 kg/m2 03867.7 g Fallon lazaro [facility] 07/13/2024 14:57:04 Social History None recorded. Functional Status None recorded. Mental Status None recorded. Family History Nothing Reported. Medical History No medical history recorded. Past Encounters Encounter ID Performer Location Encounter Start Date Encounter Closed Date Diagnosis/Indication Diagnosis SNOMED-CT Code Diagnosis ICD10 Code Diagnosis Note [id number] Gloria Abebe PA-C [facility] [address] [place] [address] 07/13/2024 14:34:09 07/13/2024 16:17:39 Osteoarthritis of right knee joint [id number] 28227 M17.11 Nature of the diagnosis discussed with the patient today. They are having an acute exacerbati on of symptoms including pain, swelling and difficulty participat ing in ADL's. Both surgical and nonsurgica l options were reviewed. Conservati ve treatment options including activity modificati on, low impact exercise program such as swimming, stationary biking, swimming or rowing, physical therapy, NSAIDs, and injections were discussed. At this point patient elects to move forward with a repeat cortisone injection. Patient tolerated the procedure well. Post injection precaution s reviewed. They will continue with conservati ve modalities including icing and elevating. Follow-up with us as symptoms dictate for discussion of continued conservati ve management options versus total joint arthroplas ty. Health Concerns Section Related Observation LastModified by Organization Detai ls LastModified Time None Recorded Concern Status LastModified by Organization Details LastModified Time None Recorded Advance Directives Directive None Recorded Payers Encounter Date Sequence Insurance Name Policy Number Policy Rich Covered Member ID Rich Member ID Guarantor Name 07/13/2024 1 [place]: [employer] Israel Kiran [id number] 2 Israel Kiran 07/13/2024 2 [facility] INDEMNITY PLAN (MEDICARE SUPPLEMENT) [id number] More Kiran [id number] Israel Kiran Notes Date Note Type Note Provider Name and Address Organization Details Recorded Time 07/13/2024 text/html I am seeing the patient under the general supervision of {{Dr. Kasia Austin*}} who was available but who did not see the patient. HPI:Patient is a {{ 74#}} year old {{male* female}} who presents today with chief complaint of right knee pain. He reports he injured his knee on 04/20/24 after walking on a snowbank and his left leg fell into the snow and his right leg went forcibly in a hyperflexion position. Since that time he has had increased pain and swelling to the knee. He states that a day or two later his knee gave out on him when he got out of bed and he had difficulty walking. He has been taking ibuprofen which helped for 3-4 days. He also takes tylenol with mild relief. He has been limping. Has increased pain with increased activity. He is established with a composite engineer for diagnosis of PMR vs. rheumatoid arthritis. He has been on chronic prednisone as a result. He has had injections in the past most recent of which was in october 2023. DIAGNOSTIC IMAGING:{{4 view* 3 view 2 view}} {{right* left bilate ral}} {{knee* hip shoulder }} radiographs obtained at outside imaging facility were independently reviewed by myself during today's interview and examination and demonstrate advanced bilateral medial compartment joint space narrowing with [id number] articulation most notable on Mills weightbearing views. Advanced patellofemoral joint space narrowing noted of the right knee on lateral view. [id number]-[id number] articulation. Impression:Advanced medial and patellofemoral right knee osteoarthritis Gloria Abebe PA-C [address] [facility] [address], [place], [address], [facility] [place] [facility] 07/13/2024 16:17:38
--- OUTSIDE RECORDS SUMMARY | 2024-07-19 10:55 | XMS_ITS | Data Portability ---
Author Organization [facility], , [facility] Address [address] [place] [address] Care Team Providers Care Glass Technologist Name Role Phone EDD KOCH Primary Care Provider JOHNATHON PENA Athlete Marketing Agent MOHSEN WRIGHT Neurologist Assessment Encounter Date Assessment Date Assessment LastModified by Organization Details LastModified Time 08/10/2023 08/10/2023 The care for this patient today involved the following: I have reviewed, collected, and updated relevant history and performed a physical exam. An independent historian was used to obtain history N. My assessment of Social Determinants of health: not at risk. At risk due to: food, health insurance, housing, transportation, safety, health literacy. My care of this patient involved: Low assessment of problems. Low review of data. Low complexity of risk from disease or treatments. Below is my assessment and plan for this patient? s care today. [email or web address] Not available 08/10/2023 14:54:29 02/09/2024 02/09/2024 Total of 33 min spent in OV and documentation time F/u with PCP [email or web address] Not available 02/09/2024 10:35:12 Plan of Treatment Reminders Order Date Submit Date Provider Last Modified By Organization Details Last Modified Time Details Appointments None recorded. Lab vitamin B12, serum 2023 024 [facility], [address] [place] [address], [id number], 14:00:41 TSH, serum or plasma 2023 024 [facility], [address] [place] [address], [id number], 4 16:31:56 lyme antibody screen, EIA/kunal, serum 2023 024 [facility], [address] [place], [address], 4 11:43:41 Referral orthopedic surgeon referral 2024 025 [email or web address] [facility], [address], [address], 5 15:08:50 neurologist referral - Please evaluate and treat worsening hand numbness and tingling 2023 024 AGATA Wright MD, [address] [place], [address], 5 03:51:24 Procedures None recorded. Surgeries None recorded. Imaging XR, knee, weightbeari ng 2024 025 [facility] (Imaging), [address], [place], [address], 5 15:02:59 Medication Orders simvastatin 40 mg tablet 2024 025 [facility] #[id number], [address] [place], [address], 5 09:48:15 Patient TargetsNo targets recorded. Patient Instructions Encounter Date Encounter Id Patient Instructions Last Modified By Organization Details Last Modified Time 08/10/2023 [id number] Discussed irma mcnally knowledge of tick-related illness. Given no symptoms of systemic illness, we will treat with doxycycline 200mg prophylactically. Patient instructed to monitor for any new rash, fevers, headaches, or body aches for the next 6 weeks. Contact [facility] with any concerns. Discussed sensitivity to sun with doxycycline. 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 -Please let us know if you have any further questions or concerns. 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 -Please let us know if you have [...] Not available 04/08/2024 09:33:01 Reason for Referral Neurologist Referral for Par esthesia of upper limb Please evaluate and treat worsening hand numbness and tingling Referring Physician: Gómez Asencio, Family Medicine, Encounter Date: 02/09/2024 Orthopedic Surgeon Referral for Pain of right knee joint Referring Physician: Gely Real, Family Medicine, Encounter Date: 05/09/2024 Results Created Date Observation Date Name Description Value Unit Range Abnormal Flag Note LastModifiedBy Organization Detail LastModifiedTime 11/08/19 24 11/08/2023 HGB A1C hemoglobin A1C 5.8 % 4.8-6. 0 Goal: <7% in Patie nts with Diabe rosa An A1c betwe en 5.7-6 .4% is ident ified as pre-d iabet es and sugge sts risk for progr essio n to diabe rosa Two a1c value s of 6.5% or highe r is consi stent with a diagn osis of diabe rosa but may need furth er confi rmati on Not Available [address], [address], 11/08/2023 15:34:22 11/08/19 24 11/08/2023 HGB A1C estimated average glucose 119.8 mg/dL Not Available [address], [address], 11/08/2023 15:34:22 11/08/19 24 11/09/2023 BASIC METAB OLIC PANEL glucose 112 mg/dL 70-100 high Not Available [address], [address], 11/09/2023 14:01:32 11/08/19 24 11/09/2023 BASIC METAB OLIC PANEL BUN 16 mg/dL 7-18 Not Available [address], [address], 11/09/2023 14:01:32 11/08/1911/09/2023 BASIC METAB OLIC PANEL creatinine 1.1 mg/dL 0.8-1. 3 Not Available [address], [address], 11/09/2023 14:01:32 11/08/19 24 11/09/2023 BASIC METAB OLIC PANEL B/C 14.5 ratio Not Available [address], [address], 11/09/2023 14:01:32 11/08/19 24 11/09/2023 BASIC METAB OLIC PANEL GFR >=60ML /MIN mL/mi n normal >=60m L/min - Vera l or midly reduc ed <60mL /min- Decre ased kidne y funct ion <15mL /min - Kidne y failu re [facility] calcu lates estim ated Glome rular Filtr ation Rate (eGFR ) using the Chron ic Kidne y Disea se Epide miolo gy Colla borat ion (CKD- EPI) Equat ion (Inke r et. al 2020) as recom darion d by the Natio nal Kidne y Found ation . eGFR is based on age, serum creat inine , and sex. CKD-E PI does not calcu late eGFR by race, does not apply to child guy (age <18 years ), and shoul d not be used in pregn cassie. Not Available [address], [address], 11/09/2023 14:01:32 11/08/19 24 11/09/2023 BASIC METAB OLIC PANEL sodium 139 mmol/ L 136-14 5 Not Available [address], [address], 11/09/2023 14:01:32 11/08/19 24 11/09/2023 BASIC METAB OLIC PANEL potassium 4.4 mmol/ L 3.5-5. 1 Not Available [address], [address], 11/09/2023 14:01:32 11/08/19 24 11/09/2023 BASIC METAB OLIC PANEL chloride 100 mmol/ L 96-107 Not Available [address], [address], 11/09/2023 14:01:32 11/08/19 24 11/09/2023 BASIC METAB OLIC PANEL anion gap 11.2 5.0-15 .0 Not Available [address], [address], 11/09/2023 14:01:32 11/08/19 24 11/09/2023 BASIC METAB OLIC PANEL CO2 28 mmol/ L 21-32 Not Available [address], [address], 11/09/2023 14:01:32 11/08/19 24 11/09/2023 BASIC METAB OLIC PANEL calcium 8.6 mg/dL 8.5-10 .3 Not Available [address], [address], 11/09/2023 14:01:32 11/08/19 24 11/09/2023 LIPID PANEL cholesterol 184 mg/dL <200 mg/dl Vivienne able 200-2 39 mg/dl Borde rline High >240 mg/dl High Not Available [address], [address], 11/09/2023 14:01:32 11/08/19 24 11/09/2023 LIPID PANEL triglyceride s 138 mg/dL <150 mg/dL Vera l 150-1 99 mg/dL Borde rline High 200-4 99 mg/dL High >500 mg/dL Very High Not Available [address], [address], 11/09/2023 14:01:32 11/08/19 24 11/09/2023 LIPID PANEL direct HDL 62 mg/dL <40 mg/dl - Major Risk for CHD >60 mg/dl - Negat stefany Risk for CHD Not Available [address], [address], 11/09/2023 14:01:32 11/08/19 24 11/09/2023 DIREC T LDL direct LDL 99 mg/dL RISK CATEG ORY LDL GOAL _ CHD or CHD Risk Equiv alent s <100 mg/dl (10-y ear risk >20%) 2+ Risk Facto rs <130 mg/dl (10-y ear risk <= 20%) 0-1 Risk Facto r? <160 mg/dl ? Almos t all peopl e with 0-1 risk facto r have a 10 year risk <10%, thus 10 year risk asses ment in peopl e with 0-1 risk facto r is not adan ortiz. Not Available [address], [address], 11/09/2023 14:01:33 11/08/19 24 11/10/2023 LYME SCREE N, REFLE X TO IGG AND IGM borrelia burgdorferi IgG/IgM Ab NEG negati ve normal <=0.9 0 - Negat stefany 0.91 - 1.09 - Equiv ocal >=1.1 0 - Posit stefany Inter preta tion: If Borre capri VlsE1 pep C10 (IgG, IgM) Antib nixon is posit stefany, the sampl e is refle xed to B. burgd orfer i IgG and B. burgd orfer i IgM. If the infec tion is recen t and the B. burgd orfer i IgM is posit stefany, then this is good evide nce to confi rm recen t infec tion. If the infec tion is more than 30 days, and B. burgd orfer i IgG resul t is posit stefany, then this is good evide nce of curre nt or past infec tion. A negat stefany B. burgd orfer i VlsE1 pepC1 0 (IgG, IgM) scree n is consi dered negat stefany for infec tion. Not Available [address], [address], 11/10/2023 11:43:41 02/09/20 24 02/09/2024 CBC WBC 11.03 K/? ? ?L 4.23-9 .07 high Not Available [address], [address], 02/09/2024 12:34:39 02/09/20 24 02/09/2024 CBC RBC 5.08 M/? ? ?L 4.63-6 .08 Not Available [address], [address], 02/09/2024 12:34:39 02/09/20 24 02/09/2024 CBC HGB 15.0 g/dL 13.7-1 7.5 Not Available [address], [address], 02/09/2024 12:34:39 02/09/20 24 02/09/2024 CBC HCT 43.5 % 40.1-5 1.0 Not Available [address], [address], 02/09/2024 12:34:39 02/09/20 24 02/09/2024 CBC MCV 85.6 fL 79.0-9 2.2 Not Available [address], [address], 02/09/2024 12:34:39 02/09/20 24 02/09/2024 CBC MCH 29.5 pg 25.7-3 2.2 Not Available [address], [address], 02/09/2024 12:34:39 02/09/20 24 02/09/2024 CBC MCHC 34.5 g/dL 32.3-3 6.5 Not Available [address], [address], 02/09/2024 12:34:39 02/09/20 24 02/09/2024 CBC plt 366 K/? ? ?L 163-33 7 high Not Available [address], [address], 02/09/2024 12:34:39 02/09/20 24 02/09/2024 CBC MPV 8.9 fL 9.4-12 .4 low Not Available [address], [address], 02/09/2024 12:34:39 02/09/20 24 02/09/2024 CBC neut% 71.0 % 34.0-6 7.9 high Not Available [address], [address], 02/09/2024 12:34:39 02/09/20 24 02/09/2024 CBC neut# 7.82 1.78-5 .38 high Not Available [address], [address], 02/09/2024 12:34:39 02/09/20 24 02/09/2024 CBC lymph % 15.1 % 21.8-5 3.1 low Not Available [address], [address], 02/09/2024 12:34:39 02/09/20 24 02/09/2024 CBC lymph # 1.67 K/? ? ?L 1.32-3 .57 Not Available [address], [address], 02/09/2024 12:34:39 02/09/20 24 02/09/2024 CBC mono% 10.0 % 5.3-12 .2 Not Available [address], [address], 02/09/2024 12:34:39 02/09/20 24 02/09/2024 CBC mono# 1.10 0.30-0 .82 high Not Available [address], [address], 02/09/2024 12:34:39 02/09/20 24 02/09/2024 CBC eo% 2.5 % 0.8-7. 0 Not Available [address], [address], 02/09/2024 12:34:39 02/09/20 24 02/09/2024 CBC eo# 0.28 0.04-0 .54 Not Available [address], [address], 02/09/2024 12:34:39 02/09/20 24 02/09/2024 CBC baso% 0.7 % 0.2-1. 2 Not Available [address], [address], 02/09/2024 12:34:39 02/09/20 24 02/09/2024 CBC baso# 0.08 0.00-0 .08 Not Available [address], [address], 02/09/2024 12:34:39 02/09/20 24 02/09/2024 CBC RDW-CV 11.6 % 11.6-1 4.4 Not Available [address], [address], 02/09/2024 12:34:39 02/09/20 24 02/09/2024 CBC Ig% 0.700 % 0.000- 1.500 Ig % >0.5 Indic ates possi ble Left Shift Not Available [address], [address], 02/09/2024 12:34:39 02/09/20 24 02/09/2024 CBC Ig# 0.080 0.000- 0.093 Not Available [address], [address], 02/09/2024 12:34:39 02/09/20 24 02/09/2024 CBC NRBC% 0.0 % 0.0-0. 2 Not Available [address], [address], 02/09/2024 12:34:39 02/09/20 24 02/09/2024 CBC NRBC# 0.000 0.000- 0.012 Not Available [address], [address], 02/09/2024 12:34:39 02/09/20 24 02/09/2024 ESR sed rate 6.0 0.0-20 .0 Not Available [address], [address], 02/09/2024 14:49:35 02/09/20 24 02/10/2024 COMP. METAB OLIC PANEL glucose 87 mg/dL 70-100 Not Available [address], [address], 02/10/2024 14:19:46 02/09/20 24 02/10/2024 COMP. METAB OLIC PANEL BUN 18 mg/dL 7-18 Not Available [address], [address], 02/10/2024 14:19:46 02/09/20 24 02/10/2024 COMP. METAB OLIC PANEL creatinine 1.0 mg/dL 0.8-1. 3 Not Available [address], [address], 02/10/2024 14:19:46 02/09/20 24 02/10/2024 COMP. METAB OLIC PANEL B/C 18.0 ratio Not Available [address], [address], 02/10/2024 14:19:46 02/09/20 24 02/10/2024 COMP. METAB OLIC PANEL GFR >=60ML /MIN mL/mi n normal >=60m L/min - Vera l or midly reduc ed <60mL /min- Decre ased kidne y funct ion <15mL /min - Kidne y failu re [facility] calcu lates estim ated Glome rular Filtr ation Rate (eGFR ) using the Chron ic Kidne y Disea se Epide miolo gy Colla borat ion (CKD- EPI) Equat ion (Michele haas et. al 2020) as recom darion d by the Natio nal Kidne y Found ation . eGFR is based on age, serum creat inine , and sex. CKD-E PI does not calcu late eGFR by race, does not apply to child guy (age <18 years ), and shoul d not be used in pregn cassie. Not Available [address], [address], 02/10/2024 14:19:46 02/09/20 24 02/10/2024 COMP. METAB OLIC PANEL sodium 139 mmol/ L 136-14 5 Not Available [address], [address], 02/10/2024 14:19:46 02/09/20 24 02/10/2024 COMP. METAB OLIC PANEL potassium 4.3 mmol/ L 3.5-5. 1 Not Available [address], [address], 02/10/2024 14:19:46 02/09/20 24 02/10/2024 COMP. METAB OLIC PANEL chloride 101 mmol/ L 96-107 Not Available [address], [address], 02/10/2024 14:19:46 02/09/20 24 02/10/2024 COMP. METAB OLIC PANEL anion gap 11.4 5.0-15 .0 Not Available [address], [address], 02/10/2024 14:19:46 02/09/20 24 02/10/2024 COMP. METAB OLIC PANEL CO2 27 mmol/ L 21-32 Not Available [address], [address], 02/10/2024 14:19:46 02/09/20 24 02/10/2024 COMP. METAB OLIC PANEL calcium 9.2 mg/dL 8.5-10 .3 Not Available [address], [address], 02/10/2024 14:19:46 02/09/20 24 02/10/2024 COMP. METAB OLIC PANEL total protein 6.8 g/dL 6.4-8. 2 Not Available [address], [address], 02/10/2024 14:19:46 02/09/20 24 02/10/2024 COMP. METAB OLIC PANEL albumin 3.7 g/dL 3.4-5. 0 Not Available [address], [address], 02/10/2024 14:19:46 02/09/20 24 02/10/2024 COMP. METAB OLIC PANEL globulin 3.1 g/dL Not Available [address], [address], 02/10/2024 14:19:46 02/09/20 24 02/10/2024 COMP. METAB OLIC PANEL A/G 1.2 ratio 0.8-2. 0 Not Available [address], [address], 02/10/2024 14:19:46 02/09/20 24 02/10/2024 COMP. METAB OLIC PANEL total bilirubin 0.60 mg/dL 0.00-1 .00 Not Available [address], [address], 02/10/2024 14:19:46 02/09/20 24 02/10/2024 COMP. METAB OLIC PANEL AST 13 U/L 0-37 Not Available [address], [address], 02/10/2024 14:19:46 02/09/20 24 02/10/2024 COMP. METAB OLIC PANEL ALT 22 U/L 6-63 Not Available [address], [address], 02/10/2024 14:19:46 02/09/20 24 02/10/2024 COMP. METAB OLIC PANEL alk. phos. 81 U/L 50-136 Not Available [address], [address], 02/10/2024 14:19:46 02/09/20 24 02/10/2024 C-BREE CTIVE PROTE IN (RCRP ) C-reactive protein (rcrp) 7.8 mg/dL 0.5-9. 0 Not Available [address], [address], 02/10/2024 14:19:47 02/09/20 24 02/13/2024 TSH TSH 1.87 uIU/m L 0.50-6 .00 The Ameri can Colle ge of Endoc rinol ogy and Ameri can Thyro id Assoc iatio n recom mend goal TSH value s betwe en 0.4-4 .0 mIU/m L. Not Available [address], [address], 02/13/2024 16:31:56 02/09/20 24 02/20/2024 VITAM IN B12 vitamin B12 864 pg/mL 230-10 50 Not Available [address], [address], 02/20/2024 14:00:41 03/06/19 25 03/06/2024 CBC WBC 11.87 K/? ? ?L 4.23-9 .07 high Not Available [address], [address], 03/06/2024 10:21:29 03/06/19 25 03/06/2024 CBC RBC 5.08 M/? ? ?L 4.63-6 .08 Not Available [address], [address], 03/06/2024 10:21:29 03/06/19 25 03/06/2024 CBC HGB 14.6 g/dL 13.7-1 7.5 Not Available [address], [address], 03/06/2024 10:21:29 03/06/19 25 03/06/2024 CBC HCT 42.5 % 40.1-5 1.0 Not Available [address], [address], 03/06/2024 10:21:29 03/06/19 25 03/06/2024 CBC MCV 83.7 fL 79.0-9 2.2 Not Available [address], [address], 03/06/2024 10:21:29 03/06/19 25 03/06/2024 CBC MCH 28.7 pg 25.7-3 2.2 Not Available [address], [address], 03/06/2024 10:21:29 03/06/19 25 03/06/2024 CBC MCHC 34.4 g/dL 32.3-3 6.5 Not Available [address], [address], 03/06/2024 10:21:29 03/06/19 25 03/06/2024 CBC plt 377 K/? ? ?L 163-33 7 high Not Available [address], [address], 03/06/2024 10:21:29 03/06/19 25 03/06/2024 CBC MPV 8.9 fL 9.4-12 .4 low Not Available [address], [address], 03/06/2024 10:21:29 03/06/19 25 03/06/2024 CBC neut% 67.4 % 34.0-6 7.9 Not Available [address], [address], 03/06/2024 10:21:29 03/06/19 25 03/06/2024 CBC neut# 8.00 1.78-5 .38 high Not Available [address], [address], 03/06/2024 10:21:29 03/06/1903/06/2024 CBC lymph % 19.0 % 21.8-5 3.1 low Not Available [address], [address], 03/06/2024 10:21:29 03/06/19 25 03/06/2024 CBC lymph # 2.26 K/? ? ?L 1.32-3 .57 Not Available [address], [address], 03/06/2024 10:21:29 03/06/19 25 03/06/2024 CBC mono% 9.9 % 5.3-12 .2 Not Available [address], [address], 03/06/2024 10:21:29 03/06/19 25 03/06/2024 CBC mono# 1.17 0.30-0 .82 high Not Available [address], [address], 03/06/2024 10:21:29 03/06/19 25 03/06/2024 CBC eo% 2.5 % 0.8-7. 0 Not Available [address], [address], 03/06/2024 10:21:29 03/06/19 25 03/06/2024 CBC eo# 0.30 0.04-0 .54 Not Available [address], [address], 03/06/2024 10:21:29 03/06/19 25 03/06/2024 CBC baso% 0.6 % 0.2-1. 2 Not Available [address], [address], 03/06/2024 10:21:29 03/06/19 25 03/06/2024 CBC baso# 0.07 0.00-0 .08 Not Available [address], [address], 03/06/2024 10:21:29 03/06/19 25 03/06/2024 CBC RDW-CV 11.9 % 11.6-1 4.4 Not Available [address], [address], 03/06/2024 10:21:29 03/06/19 25 03/06/2024 CBC Ig% 0.600 % 0.000- 1.500 Ig % >0.5 Indic ates possi ble Left Shift Not Available [address], [address], 03/06/2024 10:21:29 03/06/19 25 03/06/2024 CBC Ig# 0.070 0.000- 0.093 Not Available [address], [address], 03/06/2024 10:21:29 03/06/19 25 03/06/2024 CBC NRBC% 0.0 % 0.0-0. 2 Not Available [address], [address], 03/06/2024 10:21:29 03/06/19 25 03/06/2024 CBC NRBC# 0.000 0.000- 0.012 Not Available [address], [address], 03/06/2024 10:21:29 03/06/1903/06/2024 ESR sed rate 9.0 0.0-20 .0 Not Available [address], [address], 03/06/2024 11:14:33 03/06/19 25 03/06/2024 COMP. METAB OLIC PANEL glucose 96 mg/dL 70-100 Not Available [address], [address], 03/06/2024 12:13:47 03/06/19 25 03/06/2024 COMP. METAB OLIC PANEL BUN 17 mg/dL 7-18 Not Available [address], [address], 03/06/2024 12:13:47 03/06/1903/06/2024 COMP. METAB OLIC PANEL creatinine 1.1 mg/dL 0.8-1. 3 Not Available [address], [address], 03/06/2024 12:13:47 03/06/19 25 03/06/2024 COMP. METAB OLIC PANEL B/C 15.5 ratio Not Available [address], [address], 03/06/2024 12:13:47 03/06/19 25 03/06/2024 COMP. METAB OLIC PANEL GFR >=60ML /MIN mL/mi n normal >=60m L/min - Vera l or midly reduc ed <60mL /min- Decre ased kidne y funct ion <15mL /min - Kidne y failu re [facility] calcu lates estim ated Glome rular Filtr ation Rate (eGFR ) using the Chron ic Kidne y Disea se Epide miolo gy Colla borat ion (CKD- EPI) Equat ion (Michele r et. al 2020) as recom darion d by the Natio nal Kidne y Found ation . eGFR is based on age, serum creat inine , and sex. CKD-E PI does not calcu late eGFR by race, does not apply to child guy (age <18 years ), and shoul d not be used in pregn cassie. Not Available [address], [address], 03/06/2024 12:13:47 03/06/1903/06/2024 COMP. METAB OLIC PANEL sodium 139 mmol/ L 136-14 5 Not Available [address], [address], 03/06/2024 12:13:47 03/06/19 25 03/06/2024 COMP. METAB OLIC PANEL potassium 4.5 mmol/ L 3.5-5. 1 Not Available [address], [address], 03/06/2024 12:13:47 03/06/19 25 03/06/2024 COMP. METAB OLIC PANEL chloride 101 mmol/ L 96-107 Not Available [address], [address], 03/06/2024 12:13:47 03/06/19 25 03/06/2024 COMP. METAB OLIC PANEL anion gap 13.2 5.0-15 .0 Not Available [address], [address], 03/06/2024 12:13:47 03/06/19 25 03/06/2024 COMP. METAB OLIC PANEL CO2 25 mmol/ L 21-32 Not Available [address], [address], 03/06/2024 12:13:47 03/06/19 25 03/06/2024 COMP. METAB OLIC PANEL calcium 9.5 mg/dL 8.5-10 .3 Not Available [address], [address], 03/06/2024 12:13:47 03/06/19 25 03/06/2024 COMP. METAB OLIC PANEL total protein 6.8 g/dL 6.4-8. 2 Not Available [address], [address], 03/06/2024 12:13:47 03/06/19 25 03/06/2024 COMP. METAB OLIC PANEL albumin 3.6 g/dL 3.4-5. 0 Not Available [address], [address], 03/06/2024 12:13:47 03/06/19 25 03/06/2024 COMP. METAB OLIC PANEL globulin 3.2 g/dL Not Available [address], [address], 03/06/2024 12:13:47 03/06/19 25 03/06/2024 COMP. METAB OLIC PANEL A/G 1.1 ratio 0.8-2. 0 Not Available [address], [address], 03/06/2024 12:13:47 03/06/19 25 03/06/2024 COMP. METAB OLIC PANEL total bilirubin 0.70 mg/dL 0.00-1 .00 Not Available [address], [address], 03/06/2024 12:13:47 03/06/19 25 03/06/2024 COMP. METAB OLIC PANEL AST 13 U/L 0-37 Not Available [address], [address], 03/06/2024 12:13:47 03/06/19 25 03/06/2024 COMP. METAB OLIC PANEL ALT 24 U/L 6-63 Not Available [address], [address], 03/06/2024 12:13:47 03/06/19 25 03/06/2024 COMP. METAB OLIC PANEL alk. phos. 77 U/L 50-136 Not Available [address], [address], 03/06/2024 12:13:47 03/06/19 25 03/06/2024 C-BREE CTIVE PROTE IN (RCRP ) C-reactive protein (rcrp) 18.1 mg/dL 0.5-9. 0 high Not Available [address], [address], 03/06/2024 12:13:48 04/10/19 25 04/10/2024 CBC WBC 9.94 K/? ? ?L 4.23-9 .07 high Not Available [address], [address], 04/10/2024 12:09:54 04/10/19 25 04/10/2024 CBC RBC 4.95 M/? ? ?L 4.63-6 .08 Not Available [address], [address], 04/10/2024 12:09:54 04/10/19 25 04/10/2024 CBC HGB 14.0 g/dL 13.7-1 7.5 Not Available [address], [address], 04/10/2024 12:09:54 04/10/1904/10/2024 CBC HCT 42.9 % 40.1-5 1.0 Not Available [address], [address], 04/10/2024 12:09:54 04/10/1904/10/2024 CBC MCV 86.7 fL 79.0-9 2.2 Not Available [address], [address], 04/10/2024 12:09:54 04/10/1904/10/2024 CBC MCH 28.3 pg 25.7-3 2.2 Not Available [address], [address], 04/10/2024 12:09:54 04/10/1904/10/2024 CBC MCHC 32.6 g/dL 32.3-3 6.5 Not Available [address], [address], 04/10/2024 12:09:54 04/10/1904/10/2024 CBC plt 285 K/? ? ?L 163-33 7 Not Available [address], [address], 04/10/2024 12:09:54 04/10/19 25 04/10/2024 CBC MPV 9.1 fL 9.4-12 .4 low Not Available [address], [address], 04/10/2024 12:09:54 04/10/19 25 04/10/2024 CBC neut% 73.0 % 34.0-6 7.9 high Not Available [address], [address], 04/10/2024 12:09:54 04/10/19 25 04/10/2024 CBC neut# 7.26 1.78-5 .38 high Not Available [address], [address], 04/10/2024 12:09:54 04/10/1904/10/2024 CBC lymph % 15.0 % 21.8-5 3.1 low Not Available [address], [address], 04/10/2024 12:09:54 04/10/19 25 04/10/2024 CBC lymph # 1.49 K/? ? ?L 1.32-3 .57 Not Available [address], [address], 04/10/2024 12:09:54 04/10/19 25 04/10/2024 CBC mono% 9.6 % 5.3-12 .2 Not Available [address], [address], 04/10/2024 12:09:54 04/10/1904/10/2024 CBC mono# 0.95 0.30-0 .82 high Not Available [address], [address], 04/10/2024 12:09:54 04/10/1904/10/2024 CBC eo% 1.2 % 0.8-7. 0 Not Available [address], [address], 04/10/2024 12:09:54 04/10/1904/10/2024 CBC eo# 0.12 0.04-0 .54 Not Available [address], [address], 04/10/2024 12:09:54 04/10/19 25 04/10/2024 CBC baso% 0.7 % 0.2-1. 2 Not Available [address], [address], 04/10/2024 12:09:54 04/10/19 25 04/10/2024 CBC baso# 0.07 0.00-0 .08 Not Available [address], [address], 04/10/2024 12:09:54 04/10/19 25 04/10/2024 CBC RDW-CV 13.0 % 11.6-1 4.4 Not Available [address], [address], 04/10/2024 12:09:54 04/10/19 25 04/10/2024 CBC Ig% 0.500 % 0.000- 1.500 Ig % >0.5 Indic ates possi ble Left Shift Not Available [address], [address], 04/10/2024 12:09:54 04/10/19 25 04/10/2024 CBC Ig# 0.050 0.000- 0.093 Not Available [address], [address], 04/10/2024 12:09:54 04/10/19 25 04/10/2024 CBC NRBC% 0.0 % 0.0-0. 2 Not Available [address], [address], 04/10/2024 12:09:54 04/10/19 25 04/10/2024 CBC NRBC# 0.000 0.000- 0.012 Not Available [address], [address], 04/10/2024 12:09:54 04/10/19 25 04/10/2024 ESR sed rate 2.0 0.0-20 .0 Not Available [address], [address], 04/10/2024 16:16:23 04/10/19 25 04/10/2024 COMP. METAB OLIC PANEL glucose 95 mg/dL 70-100 Not Available [address], [address], 04/10/2024 16:36:16 04/10/19 25 04/10/2024 COMP. METAB OLIC PANEL BUN 17 mg/dL 7-18 Not Available [address], [address], 04/10/2024 16:36:16 04/10/19 25 04/10/2024 COMP. METAB OLIC PANEL creatinine 1.1 mg/dL 0.8-1. 3 Not Available [address], [address], 04/10/2024 16:36:16 04/10/19 25 04/10/2024 COMP. METAB OLIC PANEL B/C 15.5 ratio Not Available [address], [address], 04/10/2024 16:36:16 04/10/19 25 04/10/2024 COMP. METAB OLIC PANEL GFR >=60ML /MIN mL/mi n normal >=60m L/min - Vera l or midly reduc ed <60mL /min- Decre ased kidne y funct ion <15mL /min - Kidne y failu re [facility] calcu lates estim ated Glome rular Filtr ation Rate (eGFR ) using the Chron ic Kidne y Disea se Epide miolo gy Colla borat ion (CKD- EPI) Equat ion (Michele r et. al 2020) as recom darion d by the Natio nal Kidne y Found ation . eGFR is based on age, serum creat inine , and sex. CKD-E PI does not calcu late eGFR by race, does not apply to child guy (age <18 years ), and shoul d not be used in pregn cassie. Not Available [address], [address], 04/10/2024 16:36:16 04/10/19 25 04/10/2024 COMP. METAB OLIC PANEL sodium 140 mmol/ L 136-14 5 Not Available [address], [address], 04/10/2024 16:36:16 04/10/19 25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 03/20/2008 02:02:29 [id number] [facility] - [facility] Artem Betancourt, [place] [address] 1 09/24/2002 14:29:47 03/20/2008 02:02:29 [id number] Mary Yepez PA-C , [facility], OFFICE [address] [place] [address] 1 12/04/2002 07:53:37 12/04/2002 10:00:39 [id number] Monster Yg, OD Eye Care, [facility] [address] [place], [place] [address] 1 10/08/2003 08:03:29 10/08/2003 08:41:41 [id number] Juan Miguel David MD , [facility], OFFICE [address] [place] [address] 1 06/08/2004 14:04:44 03/20/2008 02:02:29 [id number] [facility] - [place] [address] [place] [address] 1 06/08/2004 14:47:51 06/08/2004 14:48:56 [id number] Mary Yepez PA-C , [facility], OFFICE [address] [place] [address] 1 12/08/2004 09:22:41 12/08/2004 12:25:26 [id number] Nacho Dawson MD , [facility], OFFICE [address] [place] [address] 1 02/02/2005 13:14:54 02/02/2005 15:19:06 [id number] Ramon Mccollum, OD Eye Care, [place] [address] [place] [address] 1 04/29/2005 09:01:24 04/30/2005 11:05:34 [id number] Keerthi Cheek MD , [facility], OFFICE [address] [place] [address] 1 08/03/2005 07:56:02 08/03/2005 13:12:43 [id number] [facility] - [place] [address] [place] [address] 1 09/10/2005 10:59:46 09/10/2005 10:59:49 [id number] Juan Miguel David MD , [facility], OFFICE [address] [place] [address] 1 09/15/2005 09:58:28 09/15/2005 14:14:09 [id number] [facility] - [place] [address] [place] [address] 1 09/28/2005 12:48:48 09/28/2005 12:48:57 [id number] Nacho Dawson MD , [facility], OFFICE [address] [place] [address] 1 12/09/2005 08:50:56 12/09/2005 12:26:22 [id number] Keerthi Cheek MD , [facility], OFFICE [place] [address] 1 01/06/2006 07:26:16 01/06/2006 14:09:14 [id number] Nacho Dawson MD , [facility], OFFICE Critical [place] [address] 1 01/18/2007 13:54:02 03/20/2008 02:02:29 [id number] [facility] RADIOLOGY Technologi st Radiology , [facility] [address] [place], [place] [address] 1 01/18/2007 14:36:25 01/23/2007 14:10:26 [id number] [facility] Technologi st Radiology , [facility] [address] [place], [place] [address] 1 01/18/2007 00:00:00 03/20/2008 02:02:29 [id number] [facility] - [facility] [address] [place] [address] 1 03/02/2007 10:21:48 03/02/2007 10:35:42 [id number] MD VAN Ramos, [facility], OFFICE [address] [place], [place] [address] 1 03/06/2007 09:45:12 03/06/2007 14:38:29 [id number] FAMILY PRACTICE TREATMENT NURSE [facility] VAN [facility], OFFICE [address] [place], [place] [address] 1 03/07/2007 11:06:42 03/20/2008 02:02:29 [id number] FAMILY PRACTICE TREATMENT NURSE [facility] VAN, [facility], OFFICE [address] [place], [place] [address] 1 03/08/2007 09:00:20 03/20/2008 02:02:29 [id number] FAMILY PRACTICE TREATMENT NURSE [facility] FP, [facility], OFFICE [address] [place], [place] [address] 1 03/10/2007 09:05:59 03/20/2008 02:02:29 [id number] FAMILY PRACTICE TREATMENT NURSE [facility] FP, [facility], OFFICE [address] [place] [address] 1 03/16/2007 10:18:47 03/20/2008 02:02:29 [id number] FAMILY PRACTICE TREATMENT NURSE [facility] FP, [facility], OFFICE [address] [place], [place] [address] 1 03/04/2007 09:55:25 03/20/2008 02:02:29 [id number] FAMILY PRACTICE TREATMENT NURSE [facility] VAN, [facility], OFFICE [address] [place], [place] [address] 1 03/23/2007 09:09:15 03/20/2008 02:02:29 [id number] FAMILY PRACTICE TREATMENT NURSE [facility] FP, [facility], OFFICE [address], [place] [address] 1 03/30/2007 09:44:46 03/20/2008 02:02:29 [id number] [facility] - [facility] [address] [place], [place] [address] 1 03/30/2007 10:14:58 03/30/2007 10:15:18 [id number] FAMILY PRACTICE TREATMENT NURSE [facility] FP, [facility], OFFICE [address], [place] [address] 1 03/31/2007 09:04:19 03/20/2008 02:02:29 [id number] FAMILY PRACTICE TREATMENT NURSE [facility] FP, [facility], OFFICE [address] [place], [place] [address] 1 04/04/2007 10:01:12 03/20/2008 02:02:29 [id number] FAMILY PRACTICE TREATMENT NURSE [facility], [facility], OFFICE [address], [place] [address] 1 04/18/2007 16:31:40 03/20/2008 02:02:29 [id number] FAMILY PRACTICE TREATMENT NURSE [facility], [facility], OFFICE [address] [place], [place] [address] 1 05/09/2007 09:12:53 03/20/2008 02:02:29 [id number] FAMILY PRACTICE TREATMENT NURSE [facility], [facility], OFFICE [address] [place], [place] [address] 1 06/06/2007 09:05:07 03/20/2008 02:02:29 [id number] Ramon Mccollum OD Eye Care, [facility] [address], [place] [address] 1 06/15/2007 08:46:43 06/16/2007 12:10:48 [id number] FAMILY PRACTICE TREATMENT NURSE [facility], [facility], OFFICE [address], [place] [address] 1 06/15/2007 09:55:35 03/20/2008 02:02:29 [id number] Juan Miguel David MD , [facility], OFFICE [address], [place] [address] 1 06/20/2007 07:55:30 03/20/2008 02:02:29 [id number] FAMILY PRACTICE TREATMENT NURSE [facility] FP, [facility], OFFICE [address] [place] [address] 1 07/04/2007 09:15:57 03/20/2008 02:02:29 [id number] Airam Berg MD FP, [facility], OFFICE [address], [place] [address] 1 08/01/2007 15:24:41 03/20/2008 02:02:29 [id number] FAMILY PRACTICE TREATMENT NURSE [facility] FP, [facility], OFFICE [address], [place] [address] 1 08/01/2007 09:11:44 03/20/2008 02:02:29 [id number] FAMILY PRACTICE TREATMENT NURSE [facility] FP, [facility], OFFICE [address], [place] [address] 1 08/04/2007 09:39:20 03/20/2008 02:02:29 [id number] FAMILY PRACTICE TREATMENT NURSE [facility], [facility], OFFICE [address], [place] [address] 1 08/07/2007 15:00:14 03/20/2008 02:02:29 [id number] FAMILY PRACTICE TREATMENT NURSE [facility], [facility], OFFICE [address], [place] [address] 1 08/11/2007 14:17:29 03/20/2008 02:02:29 [id number] FAMILY PRACTICE TREATMENT NURSE [facility] FP, [facility], OFFICE [address], [place] [address] 1 08/17/2007 15:27:52 03/20/2008 02:02:29 [id number] Juan Miguel David MD , [facility], OFFICE [address] [place] [address] 1 08/30/2007 10:49:08 03/20/2008 02:02:29 [id number] Juan Miguel David MD , [facility], OFFICE [address], [place] [address] 1 12/27/2007 13:57:56 03/20/2008 02:02:29 [id number] [facility] - [facility] [address] [place] [address] 1 01/02/2008 08:08:14 01/02/2008 08:08:17 [id number] Juan Miguel David MD , [facility], OFFICE [address] [place] [address] 1 07/19/2008 08:00:13 07/23/2008 09:19:43 [id number] [facility] - [facility] [place] [address] 1 07/15/2008 08:13:25 07/15/2008 08:13:27 [id number] [facility] - [facility] [place] [address] 1 09/16/2008 10:34:00 09/16/2008 10:34:24 [id number] [facility] - [facility] [place] [address] 1 12/24/2008 07:50:37 12/24/2008 07:50:55 [id number] Juan Miguel David MD , [facility], OFFICE [address] [place] [address] 1 12/27/2008 08:08:01 12/27/2008 15:39:45 [id number] Juan Miguel David MD , [facility], OFFICE [address], [place] [address] 1 06/09/2009 08:55:34 06/10/2009 08:11:41 [id number] Juan Miguel David MD , [facility], OFFICE [address], [place] [address] 1 05/06/2010 09:00:11 05/06/2010 14:03:03 [id number] Blanca Duran NP , [facility], OFFICE [address] [place] [address] 1 11/19/2010 10:50:47 11/19/2010 11:27:42 [id number] Sandra Mason MD , [facility], OFFICE [address] [place] [address] 1 11/27/2010 09:54:05 11/27/2010 10:57:56 [id number] Shayy Rangel NP , [facility], OFFICE [address] [place] [address] 1 12/15/2010 09:04:59 12/16/2010 07:53:28 [id number] [facility] RADIOLOGY Technologi st Radiology , [facility] [address] [facility] Manuelkaroline d, [place] [address] 1 12/15/2010 09:49:35 12/15/2010 10:07:38 [id number] Kymberly Caceres NP , [facility], OFFICE [address] [facility] Manuelkaroline [place], [place] [address] 1 02/18/2011 08:33:53 02/18/2011 09:18:05 [id number] [facility] RADIOLOGY Technologi st Radiology , [facility] [address] [facility] Manuelkaroline d, [place] [address] 1 02/18/2011 09:18:18 02/18/2011 09:41:00 [id number] Kymberly Caceres NP , [facility], OFFICE [address] [facility] [place]kar[place] d, [place] [address] 1 03/11/2011 08:40:30 03/12/2011 07:50:29 [id number] Juan Miguel David MD , [facility], OFFICE [address] [facility] [place]kar[place], [place] [address] 1 05/18/2011 08:58:39 05/18/2011 10:12:42 [id number] Juan Miguel David MD , [facility], OFFICE [address] [facility] [place]kar[place], [place] [address] 1 11/09/2011 08:56:32 11/09/2011 10:47:57 [id number] Juan Miguel David MD , [facility], OFFICE [address] [facility] [place], [place] [address] 1 06/28/2012 09:08:01 06/28/2012 15:50:27 [id number] DAVON Parekh, [facility], OFFICE [address] [facility] [place], [place] [address] 1 07/20/2012 16:42:50 07/21/2012 08:12:31 [id number] DAVON Hillman, [facility], OFFICE [address] [facility] [place] d, [place] [address] 1 08/15/2012 14:04:45 08/15/2012 14:35:46 [id number] MD VAN Hebert, [facility], OFFICE [address] [facility] [place]karoline [place], [place] [address] 1 01/03/2013 08:00:46 01/03/2013 09:05:36 Influenza vaccine needed [id number] 106 Benign ess ential hypertension 7568670 doing great with losartan, continue Mixed hyperlipidemia 478009286 at goal of LDL < 130, cont simvastati n Foot pain 45746228 not healing since fall in may, pain base 1st met head, 1st time unable to play basketball . Take ibuprofen on regular bases, 3-4x daily. Get xrays, ref Dr Michaels--[phone] [id number] Juan Miguel David MD , [facility], OFFICE [address] [place] [address] 1 07/02/2013 08:03:34 07/03/2013 07:53:26 Adult health examination [id number] see Risk Assessment and Lifestyle Change Counseling section above Counseling [id number] Ophthalmic examination and evaluation 85553720 Essential hypertension 56120338 doing well, at goal, will be inc activity as foot is better. Mixed hyperlipidemia 449125288 at goal with simvastati n, continue Foot pain 92102669 much better with modified orthotic [id number] Mary Yepez PA-C , [facility], OFFICE [address] [facility] [address] 1 10/24/2013 13:06:20 10/24/2013 15:33:39 Pain in thumb 343823032 Rupture of ulnar collateral ligament of thumb 737983393 Thumb spica splint. Ice. [id number] Juan Miguel David MD , [facility], OFFICE [address] [place] [address] 2014 12:43:53 02/07/2014 08:03:19 Strain of tendon of medial thigh muscle 127430765 ice, continue ibuprofen, Percocet if severe. Influenza vaccine needed [id number] [id number] Juan Miguel David MD , [facility], OFFICE [address] [facility] [address] 1 05/13/2014 08:02:52 05/13/2014 11:28:48 Benign essential hypertension 1979524 at goal, continue exercise, healthy eating, losartan Mixed hyperlipidemia 145804123 at goal with simvastati n, continue [id number] Li Stallings PA-C , [facility], OFFICE [address] [place] [address] 1 10/23/2014 09:01:41 10/24/2014 13:19:05 Impacted cerumen 23069017 Resolved with lavage here today. Continue with regular use of OTC earwax softening drops every 2-4 weeks to prevent recurrence . [id number] Juan Miguel Dvaid MD , [facility], OFFICE [address] [facility] [place] [address] 1 12/05/2014 07:52:32 12/06/2014 07:49:19 Influenza vaccine needed [id number] 106 Z28.3 Essential hypertension 16103334 I10 doing well, at goal, will be inc activity as foot is better. Mixed hyperlipidemia 267 940167 E78.2 was at goal with simvastati n, was on vacation, will do better with diet/exert ion Impaired f asting glycemia 443455097 R73.01 R73.09 Discussed risks of developing diabetes. Encouraged low proccessed carb diet, limit bread/rice /pasta/pot atoes. Encouraged exercise, weight loss. Discussed use of metformin. Recheck in 6 months. [id number] Juan Miguel David MD , [facility], OFFICE [address] [facility] [place] [address] 1 06/16/2015 08:02:38 06/16/2015 13:59:56 Adult health examination 704271313 Z00.00 see Risk Assessment and Lifestyle Change Counseling section above Counseling 148794503 Z71 .9 Allergic r hinitis caused by pollen 33293833 J30.1 flonase prn working well Active or passive immunization 713548950 Z23 Benign ess ential hypertension 9987156 I10 at goal with current meds, activity, continue Mixed hyperlipidemia 267 984351 E78.2 at goal with simmarybeltamarcello n, continue Impaired f asting glycemia 135510166 R73.01 R73.09 Back to normal. Encouraged low proccessed carb diet, limit bread/rice /pasta/pot atoes. Encouraged exercise, weight loss. Recheck in 6 months. [id number] Juan Miguel David MD , [facility], OFFICE [address] [facility] [place] [address] 02/18/2016 10:55:18 02/18/2016 12:00:58 Active or passive immunization [id number] Z23 Benign ess ential hypertension [id number] I10 at goal, continue exercise, healthy eating, losartan Prediabetes [id number] R7 3.03 up a little again, will bump up exercise Mixed hyperlipidemia 267 564682 E78.2 up a little, not interested in increasing meds, will work on exercise, wt loss [id number] Es Isaac MD , [facility], [address] [place] [address] 03/16/2016 08:18:12 03/16/2016 10:17:30 Foreign body in hand [id number] S60.551A FB right thumb nailelevat e to reduce throbbing, keflex as directedre turn if any worsening signs as discussed [id number] Juan Miguel David MD , [facility], OFFICE [address] [place] [address] 08/05/2017 15:41:40 08/05/2017 16:20:28 Insect bite to trunk - nonvenomous [id number] W57.XXXA with myalgias, arthralgia s, fatigue--d iscussed rx--would prefer to rx [id number] Juan Miguel David MD , [facility], [address] [place] [address] 12/26/2017 14:37:46 12/26/2017 16:31:00 Screening for malignant neoplasm of colon [id number] Z12.11 Active or passive immunization [id number] Z23 Benign ess ential hypertension 3067429 I10 at goal, continue exercise, healthy eating, losartan Mixed hyperlipidemia 267 869127 E78.2 recheck, eating better Impaired f asting glycemia 101591010 R73.01 R73.09 Discussed risks of developing diabetes. Encouraged low proccessed carb diet, limit bread/rice /pasta/pot atoes. Encouraged exercise, weight loss. Discussed use of metformin. Recheck in 6 months. [id number] Young Pete PA-C , [facility], [address] [place] [address] 01/19/2019 10:25:31 01/19/2019 11:39:38 Benign essential hypertension 6973516 I10 Elevated today. 158/98 on recheck. Asymptomat ic. Pt denies taking his medication . Please resume losartan. Continue exercise and increase healthy eating/fib er. Limit salt. BP clinic in one month. If still elevated >140/90. Increase losartan to 50mg PO QD and repeat BMP. Mixed hyperlipidemia 267 824858 E78.2 Lipids treading up. + Family hx for [place].Increas e simvastati n today to 40mg QHS. Pt has adequate medication s to take two tabs at night. F/u one month for repeat labs. Impaired f asting glycemia [id number] R73.01 R73.09 Borderline at last draw - Discussed risks. Encouraged low processed carb diet, limit bread/rice /pasta/pot atoes. Encouraged exercise, weight loss.Consi johnnie metformin in the future. Adult heal th examination [id number] Z00.00 Pleasant 68-year-ol d male presenting today for routine wellness visit. We spent most of our time discussing diet and exercise as well as lipid-lowe ring behavioral modificati ons. Counseling [id number] Z71 .9 As above. Depression screening 171 940732 Z13.89 depression screening tool administer ed, entered into emr, scored and discussed, time greater than 7.5 minutes. PHQ-9 04/26. Active or passive immunization 900021503 Z23 Abnormal vision 9122989 H54.7 Reduced acuity when reading. No difficulty driving. No halos, dryness, irritation . PT requesting repeat appt. for glasses. Actinic keratosis [id number] L57.0 Mild bilateral sun damage underneath eyes. No excessive irritation or bleeding. Pt would like referral to dermatolog y. [id number] Chetan Bailey, [facility], [address] [place] [address] 03/22/2019 08:55:31 03/22/2019 09:31:34 Presbyopia [id number] H52.4 [id number] Young Pete PA-C , [facility], OFFICE [address] [facility] [place] [address] 04/11/2019 08:45:32 04/12/2019 07:50:08 Benign essential hypertension [id number] I10 BP remains elevated>1 40/90. Increase losartan to 75mg PO QD and repeat BMP. [id number] Young Pete PA-C , [facility], OFFICE [address] [facility] [place] [address] 07/02/2019 09:17:02 07/02/2019 14:25:55 Benign essential hypertension 3572507 I10 Very pleasant 69 y/o male doing well today in f/u. Reports infrequent ly checking BP 125/80 last time he checked. Adherent with medication s continue 75mg losartan. F/u 6 months. Please continue to take your current medication s around the same time each day. It is recommende d that you exercise for 30 minutes, 5 days per week to keep your heart healthy. Regular exercise and a low salt diet can help to lower your blood pressure. Drink 7 to 8 glasses of water per day. Avoid things that raise your blood pressure such as smoking, alcohol and caffeine. Mixed hyperlipidemia 267 249974 E78.2 Simvastati n increased previously to 40mg QHS; tolerated well. Notified not to double up on new rx. Labs pending. Impaired f asting glycemia [id number] R73.01 R73.09 WNL on last draw with impressive dietary changes. Cut out junk food. Continue low processed carb diet, limit bread/rice /pasta/pot atoes. Encouraged exercise, weight loss. Actinic keratosis 007 L57.0 Mild bilateral sun damage underneath eyes when seen in the office this winter. He denies changes and sun exposure has been limited. Waiting on contact from Derm, encouraged to reachout if he doesnt hear from them. Allergic r hinitis caused by pollen 31089235 J30.1 intermitte ntly stuffy has not felt need to ouse flonase or antihistam ine yet. Reviewed s/e. Presbyopia 04164482 H52. 4 Got rx for new glasses but has not obtained yet. Planning to acquire. [id number] MD VAN Moss, [facility], OFFICE [address] [facility] [place] [address] 02/26/2020 10:17:30 02/26/2020 12:25:08 Adult health examination [id number] Z00.00 Pleasant 70-year-ol d male presenting today for routine wellness visit. From a quality standpoint he remains up to date. Lots of positive reinforcem ent for his physical activity and improved diet. Routine follow-up in 6 months. Slime SHANED. Counseling [id number] Z71 .9 Behavior change counseling to lower cardiovasc ular disease/st roke risk: 1.Eat a healthy diet - Center your eating plan around vegetables , fruits, whole grains, legumes, nuts, plant-base d proteins, lean animal proteins and fish. Make smart choices like limiting refined carbohydra rosa, processed meats and sweetened drinks. Use the nutrition facts label on packaged foods to cut back on sodium, added sugars and saturated fats, and avoid trans fat. 2. Be physically active and move more - This is one of the best ways to stay healthy, prevent disease and age well. Adults should get at least 150 minutes of moderate-i ntensity aerobic activity or 75 minutes of vigorous activity each week. If you? r e already active, you can increase your intensity for even more benefits. If you? r e not active now, get started by simply sitting less and moving more. 3. Watch your weight - Stay at a healthy weight for you. Lose weight if you? r e overweight or obese. Start by eating fewer calories and moving more. You can check your body mass index (BMI). 5. Live tobacco-fr ee - If you don? t smoke, vape or use tobacco products, don? t ever start. There? s no such thing as a safe tobacco product. Don? t just swap one tobacco source for another. And try to avoid secondhand smoke, too! 6. Manage conditions - If you have high blood pressure (hypertens ion), high cholestero l, high blood sugar, diabetes or other conditions that put you at greater risk, it? s very important to work with your health care team and make lifestyle changes. Many conditions can be prevented or managed by eating better, getting active, losing weight and quitting tobacco. 7. Take your medicine - If you have a health condition, your doctor may prescribe statins or other medication s to help control cholestero l, blood sugar and blood pressure. Take all medication s as directed. But don? t take aspirin as a preventive measure unless your doctor tells you to. If you? v e never had a heart attack or stroke, a daily aspirin may not help you at all and could cause problems including risk of bleeding. If you? v e had a heart attack or stroke, your doctor may want you to take a low dose of aspirin to reduce your risk of having another. 8. Be a team player - Your health care team can help you reduce your risk of heart disease or stroke to live a longer, healthier life. Work together on your prevention plan. Ask questions, and be open about any challenges you may face in trying to make healthy changes. Stress, sleep, mental health, family situations , tobacco use, food access, social support and other issues all can affect your health and well-being .Greater then 15 minutes spent discussing the importance of diet and exercise to reduce cardiovasc ular risk. Takes daily ASA. Depression screening 171 910241 Z13.89 depression screening tool administer ed, entered into emr, scored and discussed, time greater than 7.5 minutes, Reviewed negative Screening for alcohol abuse 302715050 Z13.39 AUDIT Reviewed and elevated. Discussed intake above recommende d sensible limits contributi ng to elevated BP and cardiovasc ular risk encouraged to reduce down to 2 drinks a day. No reported cravings encouraged follow-up if we can offer support with reduction. Benign ess ential hypertension 1941998 I10 Reports infrequent ly checking BP. States typically 130s systolic. Slightly elevated today. He will monitor for the next couple weeks and send in updated blood pressure log. Adherent with medication s continue 75mg losartan. F/u 6 months. Reduce alcohol to improve BP and reduce cardiovasc ular risk as discussed. Please continue to take your current medication s around the same time each day. It is recommende d that you exercise for 30 minutes, 5 days per week to keep your heart healthy. Regular exercise and a low salt diet can help to lower your blood pressure. Drink 7 to 8 glasses of water per day. Avoid things that raise your blood pressure such as smoking, alcohol and caffeine. Mixed hyperlipidemia 267 432864 E78.2 Continues simvastati n 40mg QHS; tolerated well. Continue diet and exercise. LDL at goal <130. Continue to monitor. Impaired f asting glycemia 449616793 R73.01 R73.09 Slightly elevated. Cut out junk food. Continue low processed carb diet, limit bread/rice /pasta/pot atoes. Encouraged exercise, weight loss. Exercise progress slightly slowed with improving back discomfort Actinic keratosis L57.0 Mild bilateral sun damage underneath eyes when seen in the office this winter. He denies changes and sun exposure has been limited. Unable to see dermatolog y he will send in sure over portal and we will schedule with AG dre y. Allergic r hinitis caused by pollen 44750547 J30.1 Uses flonase vs antihistam ine prn. Presbyopia 52538999 H52. 4 Got rx for new glasses but has not obtained yet. Planning to acquire. [id number] Nacho Dawson MD FP, [facility], OFFICE [address] [facility] [place] [address] 10/07/2020 09:21:29 10/07/2020 09:50:50 Benign essential hypertension 1413958 I10 Not at goal today. Increase losartan to 100mg today, repeat BMP 2 weeks and BP clinic at that time. Goal <140/90. If above goal at clinic at that time and corroborat ed by home BP log/zonia e checked. Discussed addition of amlodipine 5mg PO QD. Repeat BP clinic two weeks after. Pt aware of s/e and indication s to d/c med. Pt has med sufficient at home okay to send 100mg losartan on request. Reduce alcohol to improve BP and reduce cardiovasc ular risk as discussed previously . Please continue to take your current medication s around the same time each day. It is recommende d that you exercise for 30 minutes, 5 days per week to keep your heart healthy. Regular exercise and a low salt diet can help to lower your blood pressure. Drink 7 to 8 glasses of water per day. Avoid things that raise your blood pressure such as smoking, alcohol and caffeine. Mixed hyperlipidemia 267 930667 E78.2 Continues simvastati n 40mg QHS; tolerated well. Continue diet and exercise. LDL at goal <130 in the winter. Continue to monitor. Impaired f asting glycemia 301928208 R73.01 R73.09 Stable prediabeti c range. Cut out junk food. Continue low processed carb diet, limit bread/rice /pasta/pot atoes. Encouraged exercise, weight loss. Food rules as below. Actinic keratosis 007 L57.0 vs BCC, Stable; Mild bilateral sun damage underneath eyes. No signs of infection. F/u with AG requested for eval and possible tx. Discussed expectatio ns. [id number] Jacqueline Palacios MD , [facility], OFFICE [address] [facility] [address] 01/07/2021 11:10:19 01/07/2021 11:59:17 Benign essential hypertension 6641717 I10 BP today 152/90 and 142/88 on recheckCur rently on losartan 100 mgDoes miss an occasional doseDoes endorse salt use and higher caffeine intakeWill add in low dose HCTZ dailyRepea t labs in 4-6 weeksFollo w up BP clinic 4-6 weeks Mixed hyperlipidemia 267 616448 E78.2 Active or passive immunization 315917413 Z23 [id number] Airam Berg MD , [facility], OFFICE [address] [place] [address] 07/10/2021 11:55:30 07/10/2021 12:30:38 Benign essential hypertension 1722165 I10 A: BP goal <130/80 BP 122/80 today is at goal BMP due soon Has a new BP monitor but has not been checked for accuracy P: Continue currrent medication s. BMP today Handout provided on lifestyle measures BP clinic soon to check monitorNo med changes unless BP >135/85; in which case, increase HCTZ to 25 mg daily and BMP and BP check again in 2 weeks Muscle rigidity 09698535 R29.898 A: See HPI for details Multiple tick bitesNo medication changesNo back trauma P: Check for lyme disease. Discussed skin protection if doxycyclin e is started [id number] CIRILO Wong MD , [facility], OFFICE [address] [place] [address] 07/23/2021 15:49:44 07/23/2021 16:41:18 Tick bite 13386097 W57.XXXA -Reports multiple tick bites, requesting full tick panel screening. Normal lyme and anaplamsos is.-no babesiosis testing, will r/o per pt request Polymyalgi a rheumatica 77392585 M35.3 -Hip and shoulders pain and stiffness. Prolonged morning stiffness- No changes in vision, no temporal pain, no temporal artery bruit.-Patricio g discussion with patient on what autoimmune disorders are and how his symptoms seem very consistent with PMR-Contin ue prednisone , refill sent. Advised taking 5 mg daily as it has been beneficial at low dose. Can take 2 pills daily if break through pain/stiff ness.-Disc ussed not taking NSAIDs with prednisone , okay to take tylenol (3000mg daily)-Rhe um referal placed.-Fo llow up in July with LD or sooner for any worsening of pain Skin hypopigmented 70003 000 L81.5 -Bilateral hands, patient reports is chronic without change in years-susp ect vitiligo, no need for dermatolog y for official diagnosis at this time as managing acute pain [id number] Jacqueline Palacios MD , [facility], OFFICE [address] [facility] [place] [address] 08/10/2021 14:15:28 08/10/2021 15:20:00 Adult health examination 421408556 Z00.00 His last colonoscop y was 02/2018 and was normal with a suggested 10 year repeat. He has had his COVID vaccine and 2 boosters His last Td was 12/2020 He is up to date on his seasonal flu He has had his pneumonia vaccines Counseling 301709235 Z71 .9 including cardiovasc ular risk reduction counseling Vitamin D 2000iu when she is not spending time outdoors with skin exposed to the sun. ---- Recommenda tions for calcium intake: Men and premenopau riky women should consume at least 1000mg/day Postmenopa usal women should consume about 1200-1500m g/day Avoid regularly taking more than this recommenda tion in supplement s due to associatio n with calcium in artery plaques. Aim for dietary calcium primarily. Your body absorbs and handles calcium in food better than supplement s. Dairy products are the primary sources. Food calcium (mg) milk, 8 ounces 300mg yogurt, 6 ounces 250mg orange juice fortified with calcium, 8 oz 300mg tofu with calcium (half cup) 435mg cheese (1 ounce) - hard cheese = higher calcium 195-335 mg Often calcium is in soy and almond products, so read nutrition labels to understand the milligrams per serving there. Depression screening 171 192667 Z13.31 depression screening tool administer ed, entered into emr, scored and discussed Screening for alcohol abuse 102118185 Z13.39 alcohol screening tool administer ed, entered into EMR, scored and discussed; time less than 7.5 minutes Essential hypertension 78001487 I10 BP 121/94, 142/82, 120/84Curr ently on HCTZ and losartanDr inks 3 or 4 beers per day every dayCould be impacting BP in today's office visitCurre ntly on prednisone for PMR and is experienci ng pain. Mixed hyperlipidemia 267 816351 E78.2 156/73/45/ 96.4On simvastati n dailyToler ating wellEating a healthy diet Vaccine de clined by patient 5363650805 02 Z28.20 declined shingrix for now Polymyalgi a rheumatica 39773853 M35.3 Diagnosed a few weeks agoDoing better on prednisone 20 mgWill continue another 10 daysIf improved, next script will be 15 mg daily, if symptoms are persisting next script will continue at 20 mg [id number] Liz Ferro MD Rheumatol ogy, [facility] [address] [place] [address] 09/24/2021 08:10:51 09/24/2021 11:20:24 Pain of multiple joints 80209229 M25.50 Patient started in May 2021 having extreme fatigue for 2 weeks, then he started having pain and stiffness in hips and shoulders. No joint swelling.E xcellent response to prednisone . Likely PMR.Serone gative arthritis cannot be completely ruled out. For now , will check labs and decide on the prednisone dosage as patient is still symptomati c. Long-term current use of systemic steroid [id number] 01701 Z79.52 Side effects of prednisone discussed in details with the patient including but not limited to increased risk of infection, GI symptoms, heartburn, ulcers, hyperglyce shayla, hypertensi on, hyperlipid emia, weight gain, easy bruising, osteopenia , osteoporos is, mood swings, glaucoma and cataract.P atient verbalized understand ing.Patien t is to follow-up with her PCP on blood pressure, blood sugar, lipids.Pat ient to follow-up with ophthalmol ogy. Calcium and vitamin D.Check bone density. 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 [id number] Liz Ferro MD Rheumatol velvet, [facility] [address] [facility] [place] [address] 01/05/2022 11:43:39 01/11/2022 13:32:09 Polymyalgia rheumatica 94759162 M35.3 Pain of mu ltiple joints 14344053 M25.50 Patient started in May 2021 having extreme fatigue for 2 weeks, then he started having pain and stiffness in hips and shoulders. No joint swelling.E xcellent response to prednisone . Likely PMR. Doing well on prednisone 12 mg. Decrease prednisone to 11 mg for one month then to 10 mg for one month.Then patient needs to be reassessed to continue the slow taper of prednisone . I informed the patient that I will be leaving the practice and he has to contact his pcp to get a referral for rheumatolo gy. He verbalizes understand ing and has already received my letter. Long-term current use of systemic steroid 0617336351 63636 Z79.52 Side effects of prednisone previously discussed in details with the patient. Patient is to follow-up with his PCP on blood pressure, blood sugar, lipids.Pat ient to follow-up with ophthalmlázaro verdin. Calcium and vitamin D.Fosamax. Harmful pa ttern of use of alcohol 65367310 F10.10 Patient drinks 4-5 cans of light beer a day.He was counselled to cut down on this.Incre ase of risk of GI bleed as he is also on prednisone . Osteopenia 294202801 M85 .80 FRAX score is borderline (hip fracture 2.9%).Sin e patient is on prednisone , will continue Fosamax and bone density needs to be reassessed next October to decide if Fosamax needs to be continued. Bone density 11/19:Lumba r Spine T-score = 2.1Femoral Neck T-score = -1.4Total Hip T-score = -1.31/3 Radius T-score = -1.4 The estimated 10-year risk for a major osteoporot ic fracture is 9.7% and for ahip fracture 2.9%. [id number] JuanM iguel David MD , [facility], OFFICE [address] [facility] [place] [address] 02/15/2022 11:26:13 02/15/2022 12:53:03 Impacted bailee 14828064 H61.20 Patient tolerated well with excellent results, both ears. Avoid Q-Tips, f/u prn. [id number] Tomas Tovar MD Rheumatol og, [facility] [address] [facility] [place] [address] 04/02/2022 08:52:50 04/07/2022 12:17:13 Polymyalgia rheumatica 41418868 M35.3 PMR dx'd June 2021.On slow prednisone taper (1 mg/mo).See ms to be doing fine. I do not think that hand stiffness or knee sxs relate to PMR. Will update labs.Offer ed to accelerate the prednisone taper, but he was reluctant to do so. Told him no right or wrong here .Cont inue reduce by 1 mg/mo. Continue Fosamax until he is on less than 5 mg prednisone .Should get repeat BMD in Oct this year. Explained that I saw him today as a bridge until he can get establishe d with a new rheumatolo gist. He says he has appt in May Bilateral osteoarthritis of knees [id number] 59097 M17.0 sxs and finding of some DJD at knees (prior meniscal surgery).D iscussed. If more symptomati c, suggest sport medicine referral. Long-term current use of systemic steroid 1105983835 65234 Z79.52 Current dose 9 mg/d. Tapering.O n Fosamax, calcium with Vit D. [id number] MD VAN Mccarty, [facility], OFFICE [address] [facility] [place] [address] 04/27/2022 09:19:16 04/28/2022 06:57:01 Blood in urine 22559280 R31.9 No symptoms X 8 daysUrine today negativeDe clines referral to urology at this timeWill notify the office if blood returns. Benign ess ential hypertension 6886009 I10 BP today 160's/90's Currently on losartan 100 mg and HCTZ 12.5 mgDoes miss an occasional doseHas eliminated salt useWill add in low dose HCTZ dailyRepea t labs in 4-6 weeksFollo w up BP clinic 4-6 weeks Polymyalgi a rheumatica 96397509 M35.3 Currently on 8 mg dailyHad been tapering 1 mg per month but requests to stay at 8 mg for now.Active .Seeing hanna queen the end of May. Pain of le ft knee joint 8150558977 41626 M25.562 He questions re-injury of meniscusHe declines referral at this timeHe manages well and it does not affect his activityCa ll the office for any worsening of symptoms of if you request to see a specialist . [id number] Jacqueline Palacios MD , [facility], OFFICE [address] [facility] [place] [address] 06/03/2022 09:39:20 06/03/2022 09:51:07 Benign essential hypertension 1786533 I10 Your blood pressure is at goal.Pleas e call with any concerning side effects or symptoms.D iscuss lifestyle changes: DASH dietLow sodium 2300 mg per dayExercis eWeight lossSmokin g counseling /Michael Coffman/ dsNutritio n consult/co unselingRe commended alcohol intake [id number] Jacqueline Palacios MD , [facility], OFFICE [address] [facility] [place] [address] 08/03/2022 09:23:40 08/03/2022 10:57:29 Polymyalgia rheumatica 30710547 M35.3 Has resumed 8mg dose w/ benefit. Reduced as far as 5mg w/ symptom recurrence . Had been tapering 1 mg per month but requests to stay at 8 mg for now, needs rf.[place]e d [place] [facility] [place] [facility] (Dr Pena). Took 10mg prednisone per their instructio n today. Pain of bi lateral hands 3090510982 8402293 M79.641 M79.642 Bilat hand pain likely re: arthritis, OA seems more likely than RA - although either may improve with increased prednisone dose (re: PMR). No hx of trauma. Should limit use of oral NSAIDs given chronic prednisone , suggest topical diclofenac as a safer alternativ e. Risks/bene fits/side effects reviewed. Elects to start. F/u PRN. Numbness of hand 0409497 04 R20.0 Numbness and tingling in both hands. Improving as swelling is going down. Doubt primary neuropathy , suspect exacerbate d by recent arthritis flare. Pt agrees to monitor sx and f/u if sx worsen or do not fully resolve. Benign ess ential hypertension 1593021 I10 BP initially elevated but near goal <130/80 on repeat. Seems improved with slight increase in diuretic dose only a few months ago. Currently on HCTZ and losartan.C urrently on prednisone for PMR and is experienci ng pain. Urged alcohol moderation and reducing dietary salt. DM visit q6 mos, f/u sooner PRN. Osteopenia 499025164 M85 .80 Osteopenic per DEXA 10/29/21 w/ lumbar spine t-score 2.1 and L femoral neck t-score -1.4. Consequenc e of long-stand ing steroid use re: PMR. Prior rheumatolo gist (Dr Ferro) had started him on fosamax - not currently taking. Has an updated bone density scan planned later this year. Continue calcium and vitamin d supplement s. Continue weight bearing activity as tolerated. [id number] CIRILO Wong MD , [facility], OFFICE [address] [place] [address] 06/28/2023 14:51:31 06/28/2023 15:50:19 Benign essential hypertension 4139081 I10 You have chronic hypertensi on that is controlled . Your blood pressure is at goal <130/80. Continue current medication (s). Follow up for blood pressure check in 6 months with labs. Please limit your intake of salt to 1500 mg daily, dairy products, processed foods, alcohol, and caffeine. Read labels. Increase vegetables and fruits (high fiber). Please try to participat e in 30 minutes of activity daily. Please try to maintain a healthy weight. Check your blood pressure at least 1-2 times each month at [facility] the same time of day with 10-15 minutes of quiet rest prior to taking blood pressure. Make sure that your feet are flat on the floor and back upright resting on chair. Empty your bladder before taking your blood pressure. Please update us if your home blood pressures are not at goal. Call with any concerns or questions. Localized eruption of skin 693910457 R21 Right posterior shoulderSt arted with tick bite 1 year agoHas not healedNot itchy, not painfulWil l review photos with Sylwia TERAN and follow her recommenda tions Alcohol in take exceeds recommended daily limit 876364209 Z72.89 Drinks 3-4 beers per nightDiscu ssed beer is high in carbs and can cause inflammati onEncourag ed to decrease amount and to try light beer Polymyalgi a rheumatica 04524590 M35.3 Currently on 3 mg prednisone dailyFollo wed by rheumatclif Saucedo oroquineEy e exam scheduled Benign pro static hyperplasia 451712588 N40.0 Currently on finasterid e and tamsulosin Followed by Dr Tobin symptoms are stable [id number] Lencho Mcgoevrn Jr. MD , [facility], OFFICE [address] [place] [address] 07/26/2023 11:17:05 07/28/2023 08:52:59 Long-term current use of immunosuppressive drug 098900755 Z79.60 on po steroids > 1 year Neoplasm o f uncertain behavior of skin of upper limb 64571405 D48.5 R lateral shoulder, r/o BCC, sent for pathology, pt advised may receive results over the portal before I have reviewed them. 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 Portal message sent with results Polymyalgi a rheumatica [id number] M35.3 controlled with continued low dose po steroids [id number] Jr. MD VAN Zuniga, [facility], OFF[address] [place] [address] 08/10/2023 13:59:35 08/10/2023 15:04:42 Dermatofibroma of trunk [id number] 52209 D23.5 lower abdomen at site of distant tick bite, no s/s of infection. No further treatment recommende d. Not c/w BCC. 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 advised to use waterproof band aids if swimming in fresh water. [id number] Nacho Dawson MD , [facility], OFFICE [address] [facility] [address] 10/25/2023 15:46:52 10/27/2023 13:03:19 Postural dizziness [id number] R42 Started about 1 week agoOnly with position changesNo dizziness, feels off balanceNot orthostati cPush fluids, change position slowlyIf symptoms do not resolve or if they worsen, please notify the office Nonvenomou s insect bite [id number] S00.469D Had a tick bite a few months agoGiven joint pains will check lyme test Polymyalgi a rheumatica [id number] M35.3 Recently tapered off prednisone Followed by rheumatclif Mejia e exam scheduled [id number] Jacqueline Palacios MD , [facility], [address] [place] [address] 02/09/2024 09:53:03 02/09/2024 12:04:03 Essential hypertension [id number] I10 BP at goal of <130/80Con tinue HCTZ and losartanBM P stable Polymyalgi a rheumatica [id number] M35.[address] Hernandez at [facility], has weaned off prednisone in the last few months, still taking hydroxychl oroquineRe ports knees are more painful, has f/u scheduled next week Benign pro static hyperplasia [id number] N40.[address] Nancy ferrara improvemen t since not drinking alcohol (stopped 12/30/2023) Taking tamsulosin and finasterid e Paresthesi a of upper limb [id number] R20.2 R > L x multiple years but worsening recentlyWe aring a brace with some improvemen Jose M significan t episode of pain over the weekend without associated weakness. Reports holding utensil is more painful, and holding the newspaper. Symptoms improve with arms extended and down at his sides, and with walking? median nerve neuropathy vs other. Requesting referral to neuro, will refer to Dr. Barrera ill also check B12 and TSH [id number] Nacho Dawson MD , [facility], OFFICE [address] [facility] [place] [address] 04/05/2024 09:19:20 04/05/2024 10:04:05 Mixed hyperlipidemia [id number] E78.2 156/73/45/ 96.4On simvastati n dailyToler ating wellEating a healthy diet Essential hypertension 10022958 I10 Hypertensi onBlood pressure is well-contr olled with recent readings around 120/74 mmHg. Management includes hydrochlor othiazide and simvastati n. Prefers [facility] medication refills due to consistenc y. Refill simvastati n prescripti [facility] at [facility] and continue hydrochlor othiazide. Rheumatoid arthritis [id number] M06.9 Rheumatoid ArthritisJ oint pain is worsening, [...] for further management . Idiopathic peripheral neuropathy [id number] G60.9 Peripheral Neuropathy Neuropathy symptoms have improved since starting prednisone , suggesting an inflammato ry component. Tingling and numbness in the hands have significan tly improved. A neurology appointmen t is scheduled for further evaluation to determine if neuropathy is related to arthritis or another inflammato ry process. Continue prednisone and attend the neurology appointmen t. Muscle weakness [id number] M62.81 Muscle WeaknessMu scle weakness in the lower legs is likely due to prolonged knee pain and reduced activity. Physical therapy is being considered to rebuild muscle strength, particular ly in the spring when mobility is less affected by weather. Consider physical therapy in the spring to improve muscle strength. [id number] PARUL Glass FP, [facility], OFFICE [address] [facility] Miguelitokaroline alberto [place] [address] 05/09/2024 09:51:12 05/09/2024 11:54:49 Pain of right knee joint [id number] 73326 M25.561 Pt with injury to R knee 2 weeks ago. Pain and soreness has not improved, has had multiple episodes of R leg giving out. Hx of torn meniscus to both knees with surgery ~ 30 years ago. Tenderness to palpation along medial joint line. No erythema, swelling, or systemic symptoms. Xray ordered to evaluate. referral placed for [facility]. He declines to try voltaren gel. Health Concerns Section Related Observation LastModified by Organization Detai ls LastModified Time None Recorded Concern Status LastModified by Organization Details LastModified Time None Recorded Advance Directives Directive None Recorded Payers Encounter Date Sequence Insurance Name Policy Number Policy Rich Covered Member ID Rich Member ID Guarantor Name 08/10/2023 2 [facility] [employer] [id number] More Englishre [id number] Israel Cariasuire 08/10/2023 1 [place] [employer] Israel Englishre [id number] Israel Dung Magno 10/25/2023 2 [facility] [employer] [facility] - [employer] [id number] More Cariasuire [id number] Israel Razo Magno 10/25/2023 1 [place] Israel Cariasuire [id number] Israel M Magno 02/09/2024 2 [employer] IN[employer]MNITY [employer]AN - [employer] [id number] More Dung Magno [id number] Israel M Magno 02/09/2024 1 [place] Israel Cariasuire [id number] Israel M Magno 04/05/2024 2 [facility] [employer] [facility] - [employer] [id number] More M Magno [id number] Israel M Magno 04/05/2024 1 [place] Israel Razo Magno [id number] Israel M Magno 05/09/2024 2 [facility] [employer] [facility] - [employer] [id number] More M Magno [id number] Israel Razo Magno 05/09/2024 1 [place] Israel Englishre [id number] Israel Englishre Notes Date Note Type Note Provider Name and Address Organization Details Recorded Time 4 text/html Here to recheck a red firm spot 3 inches below belly button that was the site of a tick bite that he reports treating x 2 with topical ABX oint. Rubbed by belt buckle. He is worried about it being a BCC since he recently had BCC on R lateral upper arm.He also wants me to check this site and is going swimming in fresh water and not sure if he should do that. Satinder Dey PA-C [address] [place], [address], [facility] 08/10/2023 14:56:16 4 text/html He has been having some postural dizziness for about 1 week. Sometimes he gets up and notices that he is dizzy and only lasts a few seconds. Other times it can last up to an hour or so. Last Tuesday it was about 6 hours. It is not a spinning but more of a balance thing. He feels like the off balance is more to the left. He did start taking dual action Advil/Tylenol once per day for about 1 month. No change in vision or hearing, no headaches. Eating and drinking well. IDALMIS Villavicencio [address] [place], [address], [facility] 11/05/2023 19:35:02 4 text/html Here for same day appointment C/o neuropathy in hands worsening, especially R hand; has had for a couple years, has been wearing brace and keeping arms down Numbness and tingling goes away (15 -20 minutes) then comes back; when reading newspaper, eating, holding arms up wears a brace at night but ineffective normally not bothersome during the day, but was painful during the weekend, had to get up and walk around to have it go away. Has improved since the weekend, except noticing that right hand will go numb with reading the newspaper or holding a utensil. Denies dropping things Improves when arms are hanging or when walking Has discussed with rheumatology ? neurologist referral, was recommended to see neurology by rheum in the past but deferred d/t symptoms not being as severe Stopped drinking beer a few months ago, was drinking 4 beers/day. Hasn't felt significant improvement in joint pain since then, but prostate symptoms have improved Dizziness from a few months ago has improved GÓMEZ Asencio, PACKAGING MACHINE OPERATOR [address] [place], [address], [facility] 02/09/2024 10:35:31 5 text/html Pt is aware of the [...] pressure has been stable and well-controlled. Edd Koch, IDALMIS [address] [place], [address], [facility] 04/08/2024 09:33:23 5 text/html Israel is a 74 year old male who presents today for R knee pain. 2 weeks ago was walking on 4ft snow bank when his left leg went through the snow up to his upper thigh. His R knee subsequently flexed while weight bearing. States he had pain right at initial injury which then subsided. Had a slight limp that night. The next day it was sore and then the following night his R leg gave out, couldn't put any weight on it for a few minutes. was trying to wait and see if it would start to feel better but has not subsided. Pain the worst when walking down hill / down stairs. If he is resting then he does not have pain. Slight swelling in the beginning but now is not. Was taking ibuprofen 800 mg daily x 1 week, helped with pain but is now not taking it due to pmh of HTNHas hx of torn cartilage in both knees ~ 30 years ago, had two surgeries. States pain feels the same as it did then. PARUL Glass [address] [place] [address], [place], [address], [facility] 05/09/2024 12:21:54
== END 2024-07-19 11:02 | disposition home or self-care (01) ==
LOC: HO.RHE 10:23
PROVIDERS: PCP Nurse Practitioner Family; Visit Provider Student in an Organized Health Care Education/Training Program
DX: M35.3 Polymyalgia rheumatica (principal); M17.0 Bilateral primary osteoarthritis of knee; Z51.81 Encounter for therapeutic drug level monitoring; Z79.631 Long term (current) use of antimetabolite agent; Z79.52 Long term (current) use of systemic steroids
CPT/HCPCS: 99213; G2211

== ENCOUNTER → 2024-07-19 10:23 | Outpatient (BNVA) | payer MEDICARE, OTHER, SELFPAY | PROVIDERS: PCP Nurse Practitioner Family; Visit Provider Student in an Organized Health Care Education/Training Program | DX: Z13.89 Encounter for screening for other disorder (principal) | CPT/HCPCS: 99212 ==

== ENCOUNTER 2024-07-19 11:07 | Outpatient (REF) | payer MEDICARE, OTHER, SELFPAY ==
[2024-07-19 13:18] LABS: MANUAL DIFF FLAG NO
[2024-07-19 13:32] LABS: Basophils Absolute Auto 0.1 X10*3/uL (0.0-0.2); Basophils Percent Auto 0.4 % (0-2); Eosinophils Absolute Auto 0.1 X10*3/uL (0.0-0.4); Eosinophils Percent Auto 0.6 % (0-4); Hematocrit 45.8 % (42.0-52.0); Hemoglobin 15.4 g/dl (14.0-18.0); Imm Gran Abs Auto 0.22 X10*3/uL (0.00-0.03); Imm Gran Pct Auto 1.5 % (0.0-0.4); Lymphocytes Absolute Auto 1.9 X10*3/uL (1.2-4.9); Lymphocytes Percent Auto 12.9 % (20-40); Mean Corpuscular HGB Conc 33.6 g/dl (31.0-36.0); Mean Corpuscular Hemoglobin 30.7 pg (27.0-33.0); Mean Corpuscular Volume 91.2 fL (80.0-98.0); Mean Platelet Volume 8.9 fL (9.4-12.4); Monocytes Percent Auto 6.6 % (2-11); Neutrophils Absolute Auto 11.3 x10*3/uL (2.0-8.3); Platelet Count 310 X10*3/uL (160-400); Red Blood Count 5.02 X10*6/uL (4.60-5.80); White Blood Count 14.5 X10*3/uL (4.8-10.8)
[2024-07-19 13:57] LABS: Alanine Aminotransferase 40 U/L (0-40); Albumin Level 4.6 g/dL (3.5-5.0); Alkaline Phosphatase 59 U/L (39-117); Anion Gap 12 (12-20); Aspartate Amino Transferase 22 U/L (5-37); Bilirubin Total 0.6 mg/dL (0.0-1.0); Blood Urea Nitrogen 19 mg/dL (9-16); C Reactive Protein 0.12 mg/dL (< or = 0.50); Calcium 9.3 mg/dL (8.4-10.2); Carbon Dioxide 28 mmol/L (22-29); Chloride 104 mmol/L (96-108); Estimated Glomerular Filt Rate > 60; Glucose Random 79 mg/dL (60-115); Potassium 4.1 mmol/L (3.3-5.1); Sodium 140 mmol/L (135-145); Total Protein 7.2 g/dL (6.5-8.0)
[2024-07-19 14:27] LABS: Erythrocyte Sedimentation Rate 4 MM/HR (0-15)
== END 2024-07-19 11:08 | disposition home or self-care (01) ==
LOC: HO.10HDL 11:07
PROVIDERS: Visit Provider Student in an Organized Health Care Education/Training Program
DX: M35.3 Polymyalgia rheumatica (principal); Z79.631 Long term (current) use of antimetabolite agent
CPT/HCPCS: 36415; 80053; 85025; 85652; 86140; 99212

== ENCOUNTER 2024-11-20 09:43 | Outpatient (AMB) | payer MEDICARE, OTHER, SELFPAY ==
--- NOTE | 2024-11-20 10:25 | MHC.OFFVIS ---
Vital Signs 11/20/24 10:34 Height 5 ft 5 in Weight 182 lb 5.156 oz BMI 30.3 BP 124/90 H Blood Pressure Location Rt brachial Position Sitting Pulse 72 Pulse Source Pulse Oximeter Pulse Oximetry (%) 96 Oxygen Delivery Method Room Air Intake Visit Reasons: 3 months Intake Note: Patient presents for PMR follow. Allergies No Known Allergies Allergy (Verified 11/20/24 10:33) Medication List - Last Reconciled 11/20/24 by Brittney Johnson MD acetaminophen (Acetaminophen Extra Strength) 500 mg PO BID PRN finasteride 5 mg PO DAILY fluticasone propionate 50 mcg/actuation (Allergy Relief (fluticasone)) 1 spray intranasal BID folic acid 1 mg PO DAILY hydrochlorothiazide 12.5 mg PO DAILY latanoprost 0.005% 1 drp ophthalmic (eye) QPM losartan 100 mg PO DAILY methotrexate sodium 20 mg (8 x 2.5 mg) PO QWEEK 90 days multivitamin 1 tab PO DAILY prednisone 2.5 mg PO DAILY 90 days simvastatin 40 mg PO DAILY tamsulosin 0.4 mg PO DAILY [wrist splint Wear nightly and as much as possible throughout the day] HPI Comments Details: Patient is a 74-year-old male with PMR/seronegative rheumatoid arthritis, BPH and finasteride, hypotension and hyperlipidemia here today for follow up Interval History: Patient last seen 07/19/2024 with me - On methotrexate 15mg weekly and folic acid 1mg daily, prednisone 2.5mg bid - States that he is doing well on the methotrexate - Saw ortho for right knee pain and received steroid injection with improvement in his symptoms Today - On methotrexate 15mg weekly and folic acid 1mg daily, prednisone 2.5mg daily - Still with right knee pain, had recurrent knee pain and had another steroid injection 09/2024. Planning to get gel injection next month - Had a mild flare and was told to increase his methotrexate but since the flare had resolved on its own he did not increase the methotrexate - Doing well overall Rheumatologic History: PMR: 06/2021 (fatigue, stiffness of shoulders and hips, high inflammatory markers) Prednisone started 06/2021. Started on 20 mg then reduced to 15 mg after 2 weeks. 07/2022 PMR flared when he reduced his prednisone to 5 mg daily, this resolved with nightly dose of 3 mg. PDN tapered off 09/2023 HCQ started 02/2023 effective Initial history: This is a 72-year-old male with PMR who presents as a new patient. 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 Please see Dr. Ferro's notes below. Patient states that he is doing well overall. He has been having some pain and stiffness of his hands and wrists over the last 2-3 months. He generalized morning stiffness of his body lasting approximately 3 hours. He also feels that he has injured his knee recently but he is able to walk normally and his knees do not give out on him. Knees do not buckle. He states that he has had bilateral meniscal repair in his 40s. Patient is quite active Over the last few months he had rare episodes of terminal hematuria without burning with urination. He mentions that when he was evaluated by Dr. Tovar in March 2021 for knee pain he was told he might have RA. Per Dr. Ferro:? In May patient started to have flu-like symptoms, extreme fatigue for 2 weeks then he started having pain and stiffness in hips and shoulders.? No joint swelling.? He was initially treated with doxycycline which did not help.? He was later diagnosed with PMR and was started on prednisone 20 mg daily and he felt improvement right away.?? The took 20 mg for 10 days and it was decreased to 15 mg for 10 days and then 12.5 mg.? He is on this dose for 18 days.? He is also on Tylenol.?? No headaches, no jaw pain or vision change.?? He still has aches and pains in wrists, shoulders on arms.? Morning stiffness last few hours. 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 Encounter for methotrexate monitoring Glaucoma Osteopenia Impaired fasting glucose PMR (polymyalgia rheumatica) Skin hypopigmentation Gallstones Allergic rhinitis Essential hypertension Mixed hyperlipidemia Surgical History S/P cholecystectomy Hx of appendectomy History of arthroscopy of both knees H/O inguinal hernia repair Family History Mother Myocardial infarct Scarlet fever Father Dementia Social History Household Members: Spouse Alcohol intake: current Alcohol intake frequency: 3 or more drinks per day Alcohol type: beer Patient Tobacco Use Status: Never used Tobacco Current occupational status: retired and other 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 Review of Systems Const Details: Review of Systems Constitutional: Denies fever, chills, weight loss ENT: Denies vision changes, eye pain or eye redness, dental caries, dry mouth GI: Denies nausea, vomiting, diarrhea, abdominal pain, change in BM Pulm: Denies SOB, MURPHY, hemoptysis, wheezing Cards: Denies chest pain, palpitations Skin: Denies Raynaud's, rash, nail changes, photosensitivity, 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 Well appearing and in no apparent painful distress MSK Hands Right Hand: Able to make a fist. No swelling or tenderness to palpation of the MCPs, PIPs or DIPs. Left Hand: Able to make a fist. No swelling or tenderness to palpation of the MCPs, PIPs or DIPs. Herbedens nodes noted bilaterally Wrists Right Wrist: Full ROM to flexion and extension. No swelling or TTP Left Wrist: Full ROM to flexion and extension. No swelling or TTP Elbows Right Elbow: Full ROM. No swelling or TTP. No TTP of the medial epicondyle. No TTP of the lateral epicondyle Left Elbow: Full ROM. No swelling or TTP. No TTP of the medial epicondyle. No TTP of the lateral epicondyle Shoulders Right shoulder: Full ROM. No swelling noted. No TTP of the AC joint. No TTP of the subacromial bursa. No TTP of the posterior shoulder Left shoulder: Full ROM. No swelling noted. No TTP of the AC joint. No TTP of the subacromial bursa. No TTP of the posterior shoulder Knees Right knee: Decreased ROM. Swelling and warmth noted. No TTP of the knee joint line. No TTP of pes anserine bursa Left knee: Decreased ROM. No swelling noted. No TTP of the knee joint line. No TTP of pes anserine bursa. Ankles Right ankle: Good ankle dorsiflexion and plantar flexion. No swelling. No TTP of the ankle joint Left ankle: Good ankle dorsiflexion and plantar flexion. No swelling. No TTP of the ankle joint Feet Right foot: Negative squeeze test Left foot: Negative squeeze test Tender points? No tenderness to palpation of the bilateral trapezius, supraspinatus, anterior costochondral junctions, bilateral suboccipital muscle insertions SKIN No rashes Vital Signs: Last Vital Signs Pulse 72 11/20/24 10:34 BP 124/90 H 11/20/24 10:34 Pulse Ox 96 11/20/24 10:34 Oxygen Delivery Method Room Air 11/20/24 10:34 BMI result Body Mass Index 30.3 Results Reviewed Results Reviewed: [facility] labs reviewed 03/2024 TB negative Hep A/B/C nonreactive WBC 9.94 HB 14 HCT 42.9 Platelets 285 ESR 2.0 CRP 3.2 Creatinine 1.1 GFR >60 AST/ALT XR bilateral knees 04/2024 Right knee: No acute or healing fracture seen. Likely moderate osteoarthritic changes with the medial compartment. Associated with significant medial joint space narrowing. Chondral calcifications within the lateral compartment Likely mild osteoarthritic changes within the patellofemoral compartment No right knee dislocation No patellar dislocation Left knee: No acute or healing fracture seen. No patellar dislocation seen. Likely moderate osteoarthritic changes within the medial compartment. Associated with significant medial joint space narrowing. Chondral calcifications within the lateral compartment Likely mild osteoarthritic changes within the patellofemoral compartment Assessment & Plan Assessment & Plan (1) PMR (polymyalgia rheumatica): Comment: dx 06/2021 (fatigue, stiffness of shoulders and hips, high inflammatory markers) Prednisone started 06/2021. Started on 20 mg then reduced to 15 mg after 2 weeks. 07/2022 PMR flared when he reduced his prednisone to 5 mg daily, this resolved with nightly dose of 3 mg. PDN tapered off 09/2023 HCQ started 02/2023 effective - 02/2024. No longer effective Methotrexate 03/2024 Code(s): M35.3 - Polymyalgia rheumatica Category: Medical Plan: #PMR Patient is a 74-year-old male with PMR who is now presenting with inflammatory arthritis. This could be related to seronegative rheumatoid arthritis versus related to his underlying PMR. Plaquenil has not been shown to improve the joint pain associated with PMR. Methotrexate, Actemra and Kevzara have all been shown to improve the joint pain associated with PMR. Doing well on methotrexate 15mg weekly. Plan - Methotrexate 15mg weekly (3 pills in the AM, 3 pills in the PM) PO - Folic acid 1 mg daily - Prednisone 2.5mg daily - Follow up labs done today: CBC, CMP, ESR, CRP - RTC 6 months - Labs before visit: CBC, CMP, ESR, CRP (2) Bilateral primary osteoarthritis of knee: Code(s): M17.0 - Bilateral primary osteoarthritis of knee Category: Medical Plan: #Bilateral knee OA Patient with bilateral knee OA as evidenced by XRs and exam. Seeing orthopedics and getting steroid injections Continue follow up (3) Encounter for methotrexate monitoring: Code(s): Z51.81 - Encounter for therapeutic drug level monitoring; Z79.631 - bed bug exterminator (current) use of antimetabolite agent Category: Medical Plan: #Long-term Current Use of Methotrexate Discussed with patient the benefits and risks of methotrexate for managing their rheumatic condition Benefits include reduced pain, reduced mortality, maintenance of remission and reduction of flares Risks include oral ulcers, photosensitivity, hepatotoxicity, hematologic toxicity, pneumonitis, flu-like symptoms (especially day after administration), nodulosis, lymphomas ? Limit alcohol and avoid Bactrim ? Monitoring: ?CBC, BMP, LFTs every 3-4 months and hepatitis serologies as needed (4) MCFP systemic steroid user: Code(s): Z79.52 - MCFP (current) use of systemic steroids Category: Medical Plan: #Long-term Use of Steroids Discussed with patient the risks and benefits of steroid for managing the rheumatic condition Benefits include: - Reduced pain, improved mobility, increased participation in activities, and decreased progression of disease Risks include: - GI upset, potential ultrasound worsening or formation (especially in patients > 65 years old), elevated blood pressure/worsening hypertension, elevated blood sugar/worsening diabetes control, worsening of bone density, elevated lipids/worsening triglycerides, cataract formation, weight gain Recommended using proton pump inhibitors (PPIs) for the duration of steroid use to reduce the risk of gastric ulcers and vitamin-D daily to reduce the risk of osteoporosis Labs checked: ?A1c, T spot, hepatitis-B and C serologies Pneumocystis jiroveci prophylaxis: ?Patient with risk factors including steroids greater than 50 mg for more than 30 days, age greater than 60 years, and lung involvement from underlying rheumatic disease requires prophylaxis and will be given so Plan I spent 30 minutes reviewing the record and labs, taking a history, examining the patient, discussing the treatment plan and documenting in the medical record Orders: Orders Comprehensive Met. Panel 4 Months Z79.899 - Other bed bug exterminator (current) drug therapy C Reactive Protein 4 Months Z79.899 - Other bed bug exterminator (current) drug therapy Complete Blood Count Auto Diff 4 Months Z79.899 - Other bed bug exterminator (current) drug therapy Erythrocyte Sedimentation Rate 4 Months Z79.899 - Other bed bug exterminator (current) drug therapy Medications: Changed From methotrexate sodium 20 mg (8 x 2.5 mg) PO QWEEK 90 days 104 tabs 1RF M35.3 - Polymyalgia rheumatica, Z51.81 - Encounter for therapeutic drug level monitoring, Z79.631 - MCFP (current) use of antimetabolite agent To methotrexate sodium 15 mg (6 x 2.5 mg) PO QWEEK 78 tabs 1RF 90 days M35.3 - Polymyalgia rheumatica, Z51.81 - Encounter for therapeutic drug level monitoring, Z79.631 - MCFP (current) use of antimetabolite agent Refilled folic acid 1 mg PO DAILY 90 tabs 1RF M35.3 - Polymyalgia rheumatica, Z51.81 - Encounter for therapeutic drug level monitoring, Z79.631 - bed bug exterminator (current) use of antimetabolite agent Coding Level of Care Code Est Pt Level 4 (92400) Complex EM visit Add On G2211 Diagnoses PMR (polymyalgia rheumatica) M35.3 Bilateral primary osteoarthritis of knee M17.0 Encounter for methotrexate monitoring Z51.81; Z79.631 MCFP systemic steroid user Z79.52
[2024-11-20 10:34] VITALS: BP 124/90; PULSE 72; O2SAT 96; BMI 30.3
== END 2024-11-20 11:23 | disposition home or self-care (01) ==
LOC: HO.RHES 09:44
PROVIDERS: PCP Nurse Practitioner Family; Visit Provider Student in an Organized Health Care Education/Training Program
DX: M35.3 Polymyalgia rheumatica (principal); M17.0 Bilateral primary osteoarthritis of knee; Z51.81 Encounter for therapeutic drug level monitoring; Z79.631 Long term (current) use of antimetabolite agent; Z79.52 Long term (current) use of systemic steroids
CPT/HCPCS: 99214; G2211

== ENCOUNTER 2024-11-20 09:43 | Outpatient (REF) | payer MEDICARE, OTHER, SELFPAY ==
[2024-11-20 13:22] LABS: MANUAL DIFF FLAG NO
[2024-11-20 13:47] LABS: Hematocrit 44.1 % (42.0-52.0); Hemoglobin 14.8 g/dl (14.0-18.0); Imm Gran Abs Auto 0.08 X10*3/uL (0.00-0.03); Imm Gran Pct Auto 0.7 % (0.0-0.4); Lymphocytes Absolute Auto 1.6 X10*3/uL (1.2-4.9); Mean Corpuscular HGB Conc 33.6 g/dl (31.0-36.0); Mean Corpuscular Hemoglobin 30.9 pg (27.0-33.0); Mean Corpuscular Volume 92.1 fL (80.0-98.0); NRBC Abs Auto 0.000 X10*3/uL (0.0-0.012); NRBC Pct Auto 0.0 /100WBC (0.0-0.2); Platelet Count 243 X10*3/uL (160-400); Red Blood Count 4.79 X10*6/uL (4.60-5.80); White Blood Count 11.7 X10*3/uL (4.8-10.8)
[2024-11-20 14:00] LABS: Alanine Aminotransferase 23 U/L (0-40); Albumin Level 4.3 g/dL (3.5-5.0); Alkaline Phosphatase 58 U/L (39-117); Anion Gap 13 (12-20); Aspartate Amino Transferase 21 U/L (5-37); Blood Urea Nitrogen 18 mg/dL (9-16); Calcium 9.2 mg/dL (8.4-10.2); Carbon Dioxide 28 mmol/L (22-29); Chloride 104 mmol/L (96-108); Estimated Glomerular Filt Rate > 60; Potassium 4.6 mmol/L (3.3-5.1); Sodium 140 mmol/L (135-145); Total Protein 6.7 g/dL (6.5-8.0)
== END 2024-11-20 09:44 | disposition home or self-care (01) ==
LOC: HO.HKASLDS 09:43
PROVIDERS: PCP Nurse Practitioner Family; Visit Provider Student in an Organized Health Care Education/Training Program
DX: M35.3 Polymyalgia rheumatica (principal); M17.0 Bilateral primary osteoarthritis of knee; Z51.81 Encounter for therapeutic drug level monitoring; Z79.631 Long term (current) use of antimetabolite agent; Z79.899 Other long term (current) drug therapy; Z79.52 Long term (current) use of systemic steroids
CPT/HCPCS: 36415; 80053; 85025; 85652; 86140; 99212